=== PATIENT | female | born 1955 | race Caucasian/White ===

== ENCOUNTER 2018-08-20 18:26 | Observation (INO) | payer MEDICAID, OTHER ==
[2018-08-20 18:33] VITALS: BMI 25.7
--- NOTE | 2018-08-20 19:11 | ED PDOC ---
Arrival/HPI - General Chief Complaint: High Blood Pressure Time Seen by Provider: 08/20/18 18:41 Historian: Patient, Family - History of Present Illness Narrative History of Present Illness (Text): 08/20/18 19:06 Patient is a 63 year old female whose past medical history includes CABG, hypertension, and diabetes, who presents to the Emergency department for elevated blood pressure. Patient presents with family member who notes that patient's blood pressure has been elevated for awhile. Today, her family member called the PMD, who recommended she present to the Emergency department for evaluation. P Patient denies fevers, chills, cough, shortness of breath, chest pain, abdominal pain, nausea, vomiting, diarrhea, back pain, neck pain, headache, dizziness, or any other complaint. 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) - HEENT Hx HEENT Disorder: Yes (USING GLASSES) Hx Blind: Yes (legally blind) - Renal Hx Renal Disorder: (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) Hx Dialysis: Yes (4 TIMES ONLY AFTER CABG) - Endocrine/Metabolic Hx Endocrine Disorders: Yes Hx Diabetes Mellitus Type 1: Yes Hx Diabetes Mellitus Type 2: Yes - Musculoskeletal/Rheumatological Hx Falls: Yes - Psychiatric Hx Psychophysiologic Disorder: Yes Hx Depression: Yes Hx Substance Use: No - Surgical History Hx Cardiac Catheterization: Yes Hx Open Heart Surgery: Yes - Anesthesia Hx Anesthesia: Yes Hx Anesthesia Reactions: No Hx Malignant Hyperthermia: No - Suicidal Assessment Feels Threatened In Home Enviroment: No Family/Social History - Physician Review Nursing Documentation Reviewed: Yes Family/Social History: No Known Family HX Smoking Status: Never Smoked Hx Alcohol Use: No Hx Substance Use: No Hx Substance Use Treatment: No Allergies/Home Meds Allergies/Adverse Reactions: Allergies No Known Allergies Allergy (Verified 06/09/13 20:22) Home Medications: Home Meds Medication Instructions Recorded Confirmed Alogliptin Godwin/Metformin HCl 1 tab PO DAILY 08/20/18 08/20/18 [Alogliptin-Metformin 12.5-1000] Clopidogrel [Plavix] 1 tab PO DAILY 08/20/18 08/20/18 Ibuprofen [Motrin Tab] 1 tab PO PRN PRN 08/20/18 08/20/18 RX: Aspirin [Ecotrin] 1 tab PO DAILY 08/20/18 08/20/18 RX: Atorvastatin [Lipitor] 1 tab PO HS 08/20/18 08/20/18 RX: Lisinopril [Zestril] 1 tab PO DAILY 08/20/18 08/20/18 RX: Multivitamin [Multivitamins] 1 tab PO DAILY 08/20/18 08/20/18 Review of Systems - Physician Review All systems were reviewed & negative as marked: Yes - Review of Systems Constitutional: absent: Fevers, Night Sweats Respiratory: absent: SOB, Cough Cardiovascular: Other (pulsing sensation in lower extremities). absent: Chest Pain, VALDEZ Gastrointestinal: absent: Abdominal Pain, Diarrhea, Nausea, Vomiting Genitourinary Female: absent: Urine Output Changes Musculoskeletal: absent: Back Pain, Neck Pain Neurological: absent: Headache, Dizziness Physical Exam Vital Signs Reviewed: Yes Vital Signs Temp Pulse Resp BP Pulse Ox 08/20/18 18:39 192/80 H 08/20/18 18:37 98.6 F 74 18 219/87 H 98 Temperature: Afebrile Blood Pressure: Hypertensive Pulse: Regular Respiratory Rate: Normal Appearance: Positive for: Well-Appearing Mental Status: Positive for: Alert and Oriented X 3 - Systems Exam Head: Present: Atraumatic, Normocephalic Pupils: Present: PERRL Extroacular Muscles: Present: EOMI Conjunctiva: Present: Normal Mouth: Present: Moist Mucous Membranes Neck: Present: Normal Range of Motion Respiratory/Chest: Present: Clear to Auscultation, Good Air Exchange. No: Respiratory Distress, Accessory Muscle Use Cardiovascular: Present: Regular Rate and Rhythm, Normal S1, S2. No: Murmurs Abdomen: No: Tenderness, Distention, Peritoneal Signs Back: Present: Normal Inspection Upper Extremity: Present: Normal Inspection. No: Cyanosis, Edema Lower Extremity: Present: Normal Inspection. No: Edema Neurological: Present: GCS=15, CN II-XII Intact, Speech Normal Skin: Present: Warm, Dry, Normal Color. No: Rashes Psychiatric: Present: Alert, Oriented x 3, Normal Insight, Normal Concentration Medical Decision Making ED Course and Treatment: 08/20/18 19:06 Impression: Patient is a 63 year old female who presents to the Emergency department for elevated BP evaluation. Differential Diagnosis included but are not limited to: htn urgency vs emergency Plan: -- EKG -- Cardiac enzymes -- Labs -- Blood work -- Chest X-ray -- Urinalysis -- Reassess and disposition Prior Visits: Notes and results from previous visits were reviewed. Progress Notes: 08/20/18 19:07 EKG shows NSR at 71bpm with T wave inversions inferiorly in lead V2. Interpreted by me. 08/20/18 19:07 Discussed case and EKG with , who states patient not a code heart candidate. 08/20/18 20:28 08/20/18 20:31 ekg with marked changes from previous, ?wellens vs strain vs ischemia. unable to reach primary cardilogist kamala for previous ekg. accepted by dr cuellar for obs. - Lab Interpretations I have reviewed the lab results: Yes - RAD Interpretation Narrative RAD Interpretations (Text): 08/20/18 20:00 Chest X-ray shows no acute process. Interpreted by me. Radiology Orders: 08/20/18 19:02 CHEST PORTABLE [RAD] Stat Cafe Server: ED Physician - EKG Interpretation Interpreted by ED Physician: Yes Type: 12 lead EKG - Scribe Statement The provider has reviewed the documentation as recorded by the Scribe Reji Gordon Provider Scribe Attestation: All medical record entries made by the Scribe were at my direction and personally dictated by me. I have reviewed the chart and agree that the record accurately reflects my personal performance of the history, physical exam, medical decision making, and the department course for this patient. I have also personally directed, reviewed, and agree with the discharge instructions and disposition. Disposition/Present on Arrival - Present on Arrival Any Indicators Present on Arrival: No History of DVT/PE: No History of Uncontrolled Diabetes: No Urinary Catheter: No History of Decub. Ulcer: No History Surgical Site Infection Following: CABG - Mediastinitis, None - Disposition Have Diagnosis and Disposition been Completed?: Yes Diagnosis: Abnormal EKG, HTN (hypertension) Disposition: HOSPITALIZED Disposition Time: 05:00 Condition: STABLE
[2018-08-20 19:48] LABS: BASO # 0.02 K/mm3 (0.0-2.0); BASO % 0.3 % (0.0-3.0); EOS # 0.1 (0.0-0.7); EOS % 1.5 % (1.5-5.0); GRAN # 3.56 (1.4-6.5); HEMOGLOBIN 10.7 g/dL (12.0-16.0); LYMPH # 2.7 (1.2-3.4); LYMPH % 38.9 % (22.0-35.0); MEAN CELL VOLUME 86.7 fl (80.0-105.0); MEAN CORPUSCULAR HEMOGLOBIN 28.4 pg (25.0-35.0); MEAN CORPUSCULAR HGB CONC 32.7 g/dl (31.0-37.0); MONO # 0.5 (0.1-0.6); MONO % 7.3 % (1.0-6.0); RBC 3.77 10^6/uL (3.5-6.1); RED CELL DISTRIBUTION WIDTH 13.1 % (11.5-14.5); WHITE BLOOD COUNT 6.8 10^3/ul (4.5-11.0)
[2018-08-20 19:55] LABS: PH,URINE 6.5 (4.7-8.0); URINE BILIRUBIN NEGATIVE (NEGATIVE); URINE BLOOD NEGATIVE (NEGATIVE); URINE GLUCOSE (UA) 100 mg/dL (NEGATIVE); URINE LEUKOCYTE ESTERASE TRACE Leu/uL (NEGATIVE); URINE PROTEIN 100 mg/dL (<30 mg/dL); URINE UROBILINOGEN 0.2 E.U./dL (<1 E.U./dL)
[2018-08-20 19:56] LABS: INR 1.02; PARTIAL THROMBOPLASTIN TIME 27.5 Seconds (25.1-36.5); PROTHROMBIN TIME 11.6 SECONDS (9.4-12.5)
[2018-08-20 19:58] LABS: URINE APPEARANCE TURBID (CLEAR); URINE COLOR YELLOW (YELLOW)
[2018-08-20 19:59] LABS: URINE RBC NEGATIVE /hpf (0-2)
[2018-08-20 20:05] LABS: ALB/GLOB RATIO 1.1 (1.1-1.8); ALBUMIN 3.7 g/dL (3.0-4.8); CALCIUM 8.9 mg/dL (8.4-10.5)
[2018-08-20 20:08] LABS: TROPONIN I 0.01 ng/mL
--- NOTE | 2018-08-20 23:04 | CP.PCM.HP ---
<Fazal Murphy - Last Filed: 08/21/18 01:26> History of Present Illness - History of Present Illness History of Present Illness: Fazal Murphy PGY1, History and Physical for Carlos Fernandez Pt is a 63yo female with a PMH of CABG, HTN, DM who presents to the ED for elevated blood pressure. Pt states she was at her home when she took her blood pressure which was in the 200's/100's. She states her BP is typically high, and that she also takes her medications regularly. Pt states she had no symptoms before taking her blood pressure, or while at her primary care physician. Pt denies chest pain, weakness, slurred speech, SOB, or palpitations. She has chronic visual changes from her diabetes. Pt takes lisinopril at home. A 12 point ROS was obtained and added to the HPI where appropriate. PMH: HTN, DM, HLD PSH: CABG 2013 FH: Mother 70, DM. Father 80, DM, HTN. 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: Present on Admission - Present on Admission Any Indicators Present on Admission: Yes History of Uncontrolled Diabetes: Yes Review of Systems - Review of Systems Review of Systems: a 12 point ROS was obtained and added to the HPI where appropriate Past Patient History - Infectious Disease Hx of Infectious Diseases: None - Tetanus Immunizations Tetanus Immunization: Unknown - Past Social History Smoking Status: Never Smoked - CARDIAC Hx Cardiac Disorders: Yes Hx Hypertension: Yes Hx Peripheral Edema: Yes (RT PEDAL EDEMA) Other/Comment: open heart surgery - PULMONARY Hx Asthma: Yes - NEUROLOGICAL 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) - HEENT Hx HEENT Problems: Yes (USING GLASSES) Hx Blind: Yes (legally blind) - RENAL Hx Chronic Kidney Disease: (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) Hx Dialysis: Yes (4 TIMES ONLY AFTER CABG) - ENDOCRINE/METABOLIC Hx Endocrine Disorders: Yes Hx Diabetes Mellitus Type 1: Yes Hx Diabetes Mellitus Type 2: Yes - MUSCULOSKELETAL/RHEUMATOLOGICAL Hx Falls: Yes - PSYCHIATRIC Hx Psychophysiologic Disorder: Yes Hx Depression: Yes Hx Substance Use: No - SURGICAL HISTORY Hx Cardiac Catheterization: Yes Hx Open Heart Surgery: Yes - ANESTHESIA Hx Anesthesia: Yes Hx Anesthesia Reactions: No Hx Malignant Hyperthermia: No Meds Allergies/Adverse Reactions: Allergies Allergy/AdvReac Type Severity Reaction Status Date / Time No Known Allergies Allergy Verified 06/09/13 20:22 Physical Exam - Constitutional Appears: No Acute Distress - Head Exam Head Exam: ATRAUMATIC, NORMOCEPHALIC - Eye Exam Eye Exam: EOMI - ENT Exam ENT Exam: Mucous Membranes Moist - Respiratory Exam Respiratory Exam: Clear to Auscultation Bilateral, NORMAL BREATHING PATTERN. absent: Accessory Muscle Use - Cardiovascular Exam Cardiovascular Exam: RRR, +S1, +S2 - GI/Abdominal Exam GI & Abdominal Exam: Normal Bowel Sounds, Soft. absent: Tenderness - Extremities Exam Extremities exam: Positive for: pedal pulses present. Negative for: calf tenderness, pedal edema - Neurological Exam Neurological exam: Alert, CN II-XII Intact, Oriented x3 - Psychiatric Exam Psychiatric exam: Normal Affect, Normal Mood - Skin Skin Exam: Dry, Normal Color, Warm Results - Vital Signs Recent Vital Signs: Last Vital Signs Temp 98.6 F 08/20/18 18:37 Pulse 74 08/20/18 18:37 Resp 18 08/20/18 18:37 BP 167/93 H 08/20/18 19:44 Pulse Ox 98 08/20/18 18:37 - Labs Result Diagrams: 08/20/18 19:41 08/20/18 19:41 Labs: Laboratory Results - last 24 hr 08/20/18 08/20/18 08/20/18 19:41 19:41 19:41 WBC 6.8 RBC 3.77 Hgb 10.7 L Hct 32.7 L MCV 86.7 MCH 28.4 MCHC 32.7 RDW 13.1 Plt Count 265 MPV 11.0 Gran % 52.0 Lymph % (Auto) 38.9 H Fisher % (Auto) 7.3 H Eos % (Auto) 1.5 Baso % (Auto) 0.3 Gran # 3.56 Lymph # (Auto) 2.7 Fisher # (Auto) 0.5 Eos # (Auto) 0.1 Baso # (Auto) 0.02 PT 11.6 INR 1.02 APTT 27.5 Sodium 135 Potassium 4.7 Chloride 100 Carbon Dioxide 26 Anion Gap 15 BUN 28 H Creatinine 1.6 H Est GFR ( Amer) 39 Est GFR (Non-Af Amer) 32 Random Glucose 311 H* Calcium 8.9 Magnesium 1.7 Total Bilirubin 0.2 AST 26 ALT 20 Alkaline Phosphatase 144 H Lactate Dehydrogenase 398 Total Creatine Kinase 67 Troponin I 0.01 Total Protein 7.0 Albumin 3.7 Globulin 3.3 Albumin/Globulin Ratio 1.1 Urine Color Urine Appearance Urine pH Ur Specific Archbold Urine Protein Urine Glucose (UA) Urine Ketones Urine Blood Urine Nitrate Urine Bilirubin Urine Urobilinogen Ur Leukocyte Esterase Urine RBC Urine WBC 08/20/18 19:45 WBC RBC Hgb Hct MCV MCH MCHC RDW Plt Count MPV Gran % Lymph % (Auto) Fisher % (Auto) Eos % (Auto) Baso % (Auto) Gran # Lymph # (Auto) Fisher # (Auto) Eos # (Auto) Baso # (Auto) PT INR APTT Sodium Potassium Chloride Carbon Dioxide Anion Gap BUN Creatinine Est GFR ( Amer) Est GFR (Non-Af Amer) Random Glucose Calcium Magnesium Total Bilirubin AST ALT Alkaline Phosphatase Lactate Dehydrogenase Total Creatine Kinase Troponin I Total Protein Albumin Globulin Albumin/Globulin Ratio Urine Color Yellow Urine Appearance Turbid Urine pH 6.5 Ur Specific Archbold 1.015 Urine Protein 100 H Urine Glucose (UA) 100 H Urine Ketones Negative Urine Blood Negative Urine Nitrate Negative Urine Bilirubin Negative Urine Urobilinogen 0.2 Ur Leukocyte Esterase Trace H Urine RBC Negative Urine WBC 1 - 3 Assessment & Plan - Assessment and Plan (Free Text) Assessment: Pt is a 63yo female with a PMH of CABG, HTN, DM who presents to the ED for elevated blood pressure. Plan: Hypertensive urgency - pressure 219/87 on arrival, which has improved to 154/85 - TSH 2.93 - troponin negative x1, continue to trend Q6 - ASA 325 given in ED, continue with ASA 81mg - started hydralazine 10mg PRN for SBP over 180 - continue home lisinopril 30mg - discussed the importance of medication compliance - INR 1.02 - cardio consulted, Dr Moreno - EKG shows NSR at 71bpm with T wave inversions inferiorly in lead V2. - continue plavix DM - HA1C - ISS- med - continue accuchecks - random glucose 311 HLD - continue home atorvastatin - follow up lipid panel Anemia - Hgb 10.7 - continue to monitor UA - Protein 100, Glucose 100, LE trace - follow up urine culture Ppx - SCD - pantoprazole Pt seen, examined, assessment and plan discussed with Dr Carlos Murphy PGY1 - Date & Time Date: 08/21/18 Time: 00:51 <Sunita Gonzalez N - Last Filed: 08/21/18 06:25> Results - Vital Signs Recent Vital Signs: Last Vital Signs Temp 97.6 F 08/21/18 06:00 Pulse 70 08/21/18 06:00 Resp 20 08/21/18 06:00 BP 150/66 08/21/18 06:00 Pulse Ox 100 08/21/18 00:01 - Labs Result Diagrams: 08/20/18 19:41 08/20/18 19:41 Labs: Laboratory Results - last 24 hr 08/20/18 08/20/18 08/20/18 19:41 19:41 19:41 WBC 6.8 RBC 3.77 Hgb 10.7 L Hct 32.7 L MCV 86.7 MCH 28.4 MCHC 32.7 RDW 13.1 Plt Count 265 MPV 11.0 Gran % 52.0 Lymph % (Auto) 38.9 H Fisher % (Auto) 7.3 H Eos % (Auto) 1.5 Baso % (Auto) 0.3 Gran # 3.56 Lymph # (Auto) 2.7 Fisher # (Auto) 0.5 Eos # (Auto) 0.1 Baso # (Auto) 0.02 PT 11.6 INR 1.02 APTT 27.5 Sodium 135 Potassium 4.7 Chloride 100 Carbon Dioxide 26 Anion Gap 15 BUN 28 H Creatinine 1.6 H Est GFR ( Amer) 39 Est GFR (Non-Af Amer) 32 Random Glucose 311 H* Calcium 8.9 Magnesium 1.7 Total Bilirubin 0.2 AST 26 ALT 20 Alkaline Phosphatase 144 H Lactate Dehydrogenase 398 Total Creatine Kinase 67 Troponin I 0.01 Total Protein 7.0 Albumin 3.7 Globulin 3.3 Albumin/Globulin Ratio 1.1 TSH 3rd Generation Urine Color Urine Appearance Urine pH Ur Specific Archbold Urine Protein Urine Glucose (UA) Urine Ketones Urine Blood Urine Nitrate Urine Bilirubin Urine Urobilinogen Ur Leukocyte Esterase Urine RBC Urine WBC 08/20/18 08/20/18 19:41 19:45 WBC RBC Hgb Hct MCV MCH MCHC RDW Plt Count MPV Gran % Lymph % (Auto) Fisher % (Auto) Eos % (Auto) Baso % (Auto) Gran # Lymph # (Auto) Fisher # (Auto) Eos # (Auto) Baso # (Auto) PT INR APTT Sodium Potassium Chloride Carbon Dioxide Anion Gap BUN Creatinine Est GFR ( Amer) Est GFR (Non-Af Amer) Random Glucose Calcium Magnesium Total Bilirubin AST ALT Alkaline Phosphatase Lactate Dehydrogenase Total Creatine Kinase Troponin I Total Protein Albumin Globulin Albumin/Globulin Ratio TSH 3rd Generation 2.93 Urine Color Yellow Urine Appearance Turbid Urine pH 6.5 Ur Specific Archbold 1.015 Urine Protein 100 H Urine Glucose (UA) 100 H Urine Ketones Negative Urine Blood Negative Urine Nitrate Negative Urine Bilirubin Negative Urine Urobilinogen 0.2 Ur Leukocyte Esterase Trace H Urine RBC Negative Urine WBC 1 - 3 Addendum Addendum: 08/21/18 06:23 pt with hypertensive emergency and multiple co morbidities had abnormal ekg compared to 2013.
[2018-08-21] MEDS ORDERED: guaiFENesin 100 mg/5 ml Syrup UD PO PRN (01:16)
[2018-08-21] MEDS ORDERED: Benzocaine/Menthol (Cepacol) Lozenge MT PRN (01:24)
[2018-08-21] MEDS ORDERED: guaiFENesin 600 mg ER Tab PO ONE ×2 (01:30→14:44)
[2018-08-21 06:58] LABS: TROPONIN I 0.02 ng/mL
[2018-08-21 07:30] LABS: BASO # 0.02 K/mm3 (0.0-2.0); BASO % 0.3 % (0.0-3.0); EOS # 0.2 (0.0-0.7); EOS % 2.4 % (1.5-5.0); GRAN # 2.61 (1.4-6.5); GRAN % 39.6 % (50.0-68.0); HEMOGLOBIN 10.6 g/dL (12.0-16.0); LYMPH # 3.2 (1.2-3.4); LYMPH % 48.6 % (22.0-35.0); MEAN CELL VOLUME 86.7 fl (80.0-105.0); MEAN CORPUSCULAR HEMOGLOBIN 28.2 pg (25.0-35.0); MEAN CORPUSCULAR HGB CONC 32.5 g/dl (31.0-37.0); MEAN PLATELET VOLUME 11.2 fl (7.0-11.0); MONO # 0.6 (0.1-0.6); MONO % 9.1 % (1.0-6.0); RBC 3.76 10^6/uL (3.5-6.1); RED CELL DISTRIBUTION WIDTH 13.4 % (11.5-14.5); WHITE BLOOD COUNT 6.6 10^3/ul (4.5-11.0)
[2018-08-21 07:40] LABS: ALB/GLOB RATIO 1.1 (1.1-1.8); ALBUMIN 3.4 g/dL (3.0-4.8); CALCIUM 9.2 mg/dL (8.4-10.5)
[2018-08-21] MEDS: Insulin Reg-MEDIUM-Coverage SC SCH ×4 (08:34→23:04)
--- NOTE | 2018-08-21 09:58 | RAD ---
Date of service: 08/20/2018 HISTORY: Hypertension COMPARISON: No prior. FINDINGS: LUNGS: The lungs are well inflated and clear. PLEURA: No significant pleural effusion identified, no pneumothorax apparent. CARDIOVASCULAR: There is mild cardiomegaly. Status post CABG. OSSEOUS STRUCTURES: No significant abnormalities. VISUALIZED UPPER ABDOMEN: Normal. OTHER FINDINGS: None. IMPRESSION: No active pulmonary disease.
--- NOTE | 2018-08-21 10:18 | CARD ---
APPROVED REPORT Date of service: 08/21/2018 EKG Measurement Heart [id number] <Conclusion> Normal sinus rhythm with 1st degree AV block NSTT wave abnormality prolonged QT Abnormal ECG
--- NOTE | 2018-08-21 10:50 | CT ---
Date of service: 08/21/2018 PROCEDURE: CT HEAD WITHOUT CONTRAST. HISTORY: headache; elevated BP on admission COMPARISON: None available. TECHNIQUE: Axial computed tomography images were obtained through the head/brain without intravenous contrast. Radiation dose: Total exam DLP = 736 mGy-cm. This CT exam was performed using one or more of the following dose reduction techniques: Automated exposure control, adjustment of the mA and/or kV according to patient size, and/or use of iterative reconstruction technique. FINDINGS: HEMORRHAGE: No intracranial hemorrhage. BRAIN: No mass effect or edema. There is a 4 mm area of slightly increased density in the right parietal white matter. This could represent an area of hemosiderin deposition from an old hemorrhage or possibly a cavernous angioma. It is unlikely that this represents acute hemorrhage. MRI follow-up may be indicated VENTRICLES: Unremarkable. No hydrocephalus. CALVARIUM: Unremarkable. PARANASAL SINUSES: Unremarkable as visualized. No significant inflammatory changes. MASTOID AIR CELLS: Unremarkable as visualized. No inflammatory changes. OTHER FINDINGS: None. IMPRESSION: There is a 4 mm area of slightly increased density in the right parietal white matter. This could represent an area of hemosiderin deposition from an old hemorrhage or possibly a cavernous angioma. It is unlikely that this represents acute hemorrhage. MRI follow-up may be indicated
--- NOTE | 2018-08-21 11:08 | CP.PCM.PN ---
<Forest Hull - Last Filed: 08/21/18 17:57> Subjective - Date & Time of Evaluation Date of Evaluation: 08/21/18 Time of Evaluation: 07:10 - Subjective Subjective: Forest Hull DO PGY-1, Internal Medicine Resident. Hospitalist Progress Note Patient seen and examined at bedside. Patient is resting in bed, awake and oriented. She admits to headache as she is NPO. Patient denied chest pain, palpitation, fever, chills, cough, N/V/D Objective - Vital Signs/Intake and Output Vital Signs (last 24 hours): Temp Pulse Resp BP Pulse Ox 97.6 F 104 H 20 187/91 H 100 08/21/18 06:00 08/21/18 10:01 08/21/18 06:00 08/21/18 10:01 08/21/18 00:01 - Medications Medications: Current Medications Aspirin (Ecotrin) 81 mg PO DAILY [facility] Last Admin: 08/21/18 10:04 Dose: 81 mg Atorvastatin Calcium (Lipitor) 40 mg PO [facility] Benzocaine/Menthol (Cepacol Sore Throat) 1 nathaniel MT Q2H PRN PRN Reason: Sore Throat Clopidogrel Bisulfate (Plavix) 75 mg PO DAILY [facility] Last Admin: 08/21/18 10:04 Dose: 75 mg Hydralazine HCl (Apresoline) 10 mg IVP Q6 PRN PRN Reason: Systolic Blood Pressure Insulin Human Regular (Humulin R Med) 0 units SC [facility]; Protocol Last Admin: 08/21/18 08:34 Dose: Not Given Lisinopril (Zestril) 30 mg PO DAILY [facility] Last Admin: 08/21/18 10:01 Dose: 30 mg Pantoprazole Sodium (Protonix Inj) 40 mg IVP DAILY [facility] Last Admin: 08/21/18 10:01 Dose: 40 mg - Labs Labs: 08/21/18 06:00 08/21/18 06:00 PT 11.6 SECONDS (9.4-12.5) 08/20/18 19:41 INR 1.02 08/20/18 19:41 APTT 27.5 Seconds (25.1-36.5) 08/20/18 19:41 - Constitutional Appears: Well, No Acute Distress - Head Exam Head Exam: ATRAUMATIC, NORMOCEPHALIC - Eye Exam Eye Exam: EOMI Additional comments: limited sight - ENT Exam ENT Exam: Mucous Membranes Moist, Normal Exam - Neck Exam Neck Exam: Full ROM, Normal Inspection - Respiratory Exam Respiratory Exam: Clear to Ausculation Bilateral, NORMAL BREATHING PATTERN Additional comments: median sternotomy - Cardiovascular Exam Cardiovascular Exam: REGULAR RHYTHM, +S1, +S2. absent: Gallop, Murmur - GI/Abdominal Exam GI & Abdominal Exam: Soft, Normal Bowel Sounds. absent: Tenderness - Extremities Exam Extremities Exam: Full ROM, Normal Capillary Refill, Normal Inspection. absent: Joint Swelling, Pedal Edema - Back Exam Back Exam: NORMAL INSPECTION - Neurological Exam Neurological Exam: Alert, Awake, CN II-XII Intact, Oriented x3 - Psychiatric Exam Psychiatric exam: Normal Affect, Normal Mood - Skin Skin Exam: Dry, Intact, Normal Color, Warm Assessment and Plan - Assessment and Plan (Free Text) Assessment: 63 y/o female with a PMH of CABG, HTN, DM who presented to the ED for elevated blood pressure 219/87. EKG shows NSR at 71bpm with T wave inversions inferiorly in lead V2. Patient with extensive cardiac history admitted to telemetry for hypertensive emergency and to r/o ACS Plan: Hypertensive emergency - pressure 219/87 on arrival, which has improved to 154/85 - EKG shows NSR at 71bpm with T wave inversions inferiorly in lead V2. - troponin negative x3 - CXR: shows no acute process - ASA 325 given in ED - CT head: 4 mm right parietal white matter density could represent old infarction or cavernous angioma - Brain MRI ordered - continue clonidine 0.1 mg BID - hydralazine 10mg PRN for SBP over 180 - continue home lisinopril 30mg - tylenol for headache H/O CAD s/p CABG: - continue with ASA 81 and plavix - Per cardio consult note , Dr Moreno: patient has accelerated HTN. 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 chest pain worked up. clonidine added to regimen. No evidence of ACS DM - accuchecks - HA1C - d/c home med alogliptin/metformin 12.5-1000 - ISS- med - Urine Protein 100, Glucose 100 H/O left LL DVT: - INR 1.02 - no symptoms of calf tenderness or SOB HLD - continue home atorvastatin - lipid panel CHOL 159, TG 139, LDL 43, HDL 46 - TSH 2.93 Anemia - H/H 10.7/32.7 - continue to monitor Prpphylaxis - DVT ppx: SCD - GI ppx: pantoprazole Heart healthy diet Case reviewed and plan discussed with attending Dr Del Castillo <Abe Del Castillo - Last Filed: 08/23/18 14:50> Objective - Vital Signs/Intake and Output Vital Signs (last 24 hours): Temp Pulse Resp BP Pulse Ox 97.3 F L 64 18 140/58 L 98 08/22/18 12:00 08/22/18 12:00 08/22/18 12:00 08/22/18 12:00 08/22/18 06:00 - Labs Labs: 08/22/18 06:00 08/22/18 06:00 PT 11.6 SECONDS (9.4-12.5) 08/20/18 19:41 INR 1.02 08/20/18 19:41 APTT 27.5 Seconds (25.1-36.5) 08/20/18 19:41 Attending/Attestation - Attestation I have personally seen and examined this patient.: Yes I have fully participated in the care of the patient.: Yes I have reviewed all pertinent clinical information, including history, physical exam and plan: Yes Notes (Text): 08/23/18 14:46 attending note; Patient seen and examined with resident. Patient is complaining of mild headache. Denies any nausea, vomiting. Denies any neck pain. Chest pain is resolving. Tolerating diet well. Patient usually ambulates with a cane/walker at home. Patient is a 63 year old female with a PMH of CABG, HTN, DM who presented to the ED for elevated blood pressure 219/87. EKG shows NSR at 71bpm with T wave inversions inferiorly in lead V2. Patient with extensive cardiac history admitted to telemetry for hypertensive emergency and to r/o ACS. patient is noncompliance with medication. Started on lisinopril. IV hydralazine ordered. Cardiac enzymes negative. Cardiology evaluation requested. Patient follows up with top lift and automatic window repairer . Headache; CT head showed possible old hemorrhage. MRI ordered. PT evaluation requested. Upon discharge patient will follow up with PMD Dr. Mccray.
--- NOTE | 2018-08-21 14:42 | CON ---
DATE: 08/21/2018 CARDIOLOGY CONSULTATION HISTORY: The patient is a 63-year-old woman, who presents with accelerated hypertension. The patient's past medical history is notable for hypertension as well as history of coronary artery bypass surgery in the past. She also suffers from hyperlipidemia. She is followed by a skein yarn dyer helper at [facility] (Formerly [facility]). The patient admits to constant chest discomfort, in which she has reported to a skein yarn dyer helper and has been worked up apparently. She denies shortness of breath. SOCIAL HISTORY: The patient does not smoke. REVIEW OF SYSTEMS: Fourteen-point review of systems is reviewed in detail. No diabetes mellitus noted. She does complain of visual disturbances and headaches. PHYSICAL EXAMINATION: VITAL SIGNS: Blood pressure is 187/91, heart rate is in the 90s. NECK: Negative JVD. LUNGS: Without rales. HEART: Reveals S1, S2. EXTREMITIES: Without edema. The EKG shows normal sinus rhythm with diffuse ST-T changes. LABORATORY DATA: Laboratories reveals troponins that are negative x2. BUN and creatinine are 26 and 1.6. The hemoglobin is 10.6. IMPRESSION: 1. Accelerated hypertension. 2. History of coronary artery bypass surgery. 3. No evidence for acute coronary syndrome. 4. Coronary artery disease. 5. Hyperlipidemia. 6. Headaches. PLAN: Given these findings, the patient's cardiac workup has been followed by a skein yarn dyer helper in [place] and the chest pain that she reported to him and worked up apparently. We will add clonidine to her regimen. Neel Moreno MD
--- NOTE | 2018-08-21 15:25 | CARD ---
APPROVED REPORT Date of service: 08/21/2018 EKG Measurement Heart [id number] <Conclusion> Normal sinus rhythm Nonspecific ST changes in inferior leads T wave inversions consider doc-lateral wall ischemia. Abnormal ECG
--- NOTE | 2018-08-21 16:09 | CARD ---
APPROVED REPORT Date of service: 08/20/2018 EKG Measurement Heart [id number] <Conclusion> Normal sinus rhythm Marked ST abnormality, possible inferior subendocardial injury Abnormal ECG
--- NOTE | 2018-08-21 17:00 | MRI ---
Date of service: 08/21/2018 PROCEDURE: MRI BRAIN WITHOUT CONTRAST HISTORY: abnormal CT; ?Hemangioma vs. old infarct COMPARISON: CT 08/21/2018 TECHNIQUE: Multiplanar, multisequence MR images of the brain were obtained without intravenous contrast enhancement. FINDINGS: HEMORRHAGE: There is a small focus of hemosiderin deposition in the right parietal white matter the corresponds to the CT finding. This measures 5 mm in diameter. This is best seen on gradient echo image 14 series 7. This is consistent with an old hemorrhage. A similar finding is also seen in the right cerebellar hemisphere image 5 series 7. DWI: No evidence of an acute or early subacute infarction. BRAIN PARENCHYMA: No mass effect or edema. No atrophy or chronic microvascular ischemic changes. VENTRICLES: Unremarkable. No hydrocephalus. CRANIUM: Unremarkable. ORBITS: Grossly unremarkable. PARANASAL SINUSES/MASTOIDS: Clear VASCULAR SYSTEM: Skull base flow voids intact. OTHER FINDINGS: None. IMPRESSION: No acute intracranial findings. Small areas of hemosiderin deposition in the right parietal white matter and right cerebellar hemisphere consistent with chronic hemorrhages
[2018-08-22 04:18] VITALS: O2SAT 98
[2018-08-22 06:33] LABS: BASO # 0.02 K/mm3 (0.0-2.0); BASO % 0.3 % (0.0-3.0); EOS # 0.2 (0.0-0.7); EOS % 2.5 % (1.5-5.0); GRAN # 2.93 (1.4-6.5); GRAN % 43.1 % (50.0-68.0); HEMOGLOBIN 10.3 g/dL (12.0-16.0); LYMPH % 44.5 % (22.0-35.0); MEAN CELL VOLUME 87.9 fl (80.0-105.0); MEAN CORPUSCULAR HEMOGLOBIN 28.4 pg (25.0-35.0); MEAN CORPUSCULAR HGB CONC 32.3 g/dl (31.0-37.0); MEAN PLATELET VOLUME 11.5 fl (7.0-11.0); MONO # 0.7 (0.1-0.6); MONO % 9.6 % (1.0-6.0); RBC 3.63 10^6/uL (3.5-6.1); RED CELL DISTRIBUTION WIDTH 13.2 % (11.5-14.5); WHITE BLOOD COUNT 6.8 10^3/ul (4.5-11.0)
[2018-08-22] MEDS ORDERED: guaiFENesin 600 mg ER Tab PO STA (06:44)
[2018-08-22] MEDS ORDERED: Pantoprazole 40 mg EC Tab PO SCH (07:30)
[2018-08-22 07:40] LABS: ALB/GLOB RATIO 1.1 (1.1-1.8); ALBUMIN 3.5 g/dL (3.0-4.8); CALCIUM 8.7 mg/dL (8.4-10.5)
[2018-08-22] MEDS: Insulin Reg-MEDIUM-Coverage SC SCH ×4 (07:48→17:27)
--- NOTE | 2018-08-22 10:42 | CP.PCM.CON ---
<Kristine Sahuja - Last Filed: 08/22/18 16:05> History of Present Illness - History of Present Illness History of Present Illness: Lilibeth Sahu, PGY2, Neurology Consult Note for Dr Sanders: Reason for consult: chronic brain hemorrhage, on ASA and plavix 63 year old female with PMH CABG (2013), HTN, DM, presents to ED for elevated blood pressure. Patient reports that her BP was in 200s/100s at home, prompting her to come to ED. Patient reports a long history of high BP. States that she also had a mild headache. Denies chest pain, nausea, vomiting, diaphoresis, blurred vision, abdominal pain, urinary symptoms. At home, patient takes lisinopril (reports taking BP med). In hospital, patient's BP was high 219/87, head CT done showed 4 mm area of possible old hemorrhage, brain MRI also conf irmed old hemorrhage in right parietal white matter and right cerebellar hemisphere. Neurology consulted as patient is on aspirin and plavix in setting of old brain hemorrhage. 12 point ROS obtained and negative, except as per HPI. PMH: HTN, DM, HLD PSH: CABG 2013 FH: Mother 70, DM. Father 80, DM, HTN. 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) - HEENT Hx HEENT Problems: Yes (USING GLASSES) Hx Blind: Yes (legally blind) - RENAL Hx Chronic Kidney Disease: (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) Hx Dialysis: Yes (4 TIMES ONLY AFTER CABG) - ENDOCRINE/METABOLIC Hx Endocrine Disorders: Yes Hx Diabetes Mellitus Type 1: Yes Hx Diabetes Mellitus Type 2: Yes - MUSCULOSKELETAL/RHEUMATOLOGICAL Hx Falls: Yes - PSYCHIATRIC Hx Psychophysiologic Disorder: Yes Hx Depression: Yes Hx Substance Use: No - SURGICAL HISTORY Hx Cardiac Catheterization: Yes Hx Open Heart Surgery: Yes - ANESTHESIA Hx Anesthesia: Yes Hx Anesthesia Reactions: No Hx Malignant Hyperthermia: No Meds Home Medications: Home Medication List Medication Instructions Recorded Confirmed Type Carvedilol [Coreg] 3.125 mg PO BID #28 tab 08/22/18 Rx Lisinopril [Zestril] 1 tab PO DAILY #14 tablet 08/22/18 Rx Allergies/Adverse Reactions: Allergies Allergy/AdvReac Type Severity Reaction Status Date / Time No Known Allergies Allergy Verified 06/09/13 20:22 - Medications Medications: Current Medications Acetaminophen (Tylenol 325mg Tab) 650 mg PO Q6H PRN PRN Reason: Pain, moderate (4-7) Aspirin (Ecotrin) 81 mg PO DAILY [facility] Last Admin: 08/22/18 09:08 Dose: 81 mg Atorvastatin Calcium (Lipitor) 40 mg PO HS [facility] Last Admin: 08/21/18 21:37 Dose: 40 mg Benzocaine/Menthol (Cepacol Sore Throat) 1 nathaniel MT Q2H PRN PRN Reason: Sore Throat Clonidine HCl (Catapres) 0.1 mg PO BID [facility] Last Admin: 08/22/18 09:08 Dose: 0.1 mg Clopidogrel Bisulfate (Plavix) 75 mg PO DAILY [facility] Last Admin: 08/22/18 09:07 Dose: 75 mg Hydralazine HCl (Apresoline) 10 mg IVP Q6 PRN PRN Reason: Systolic Blood Pressure Insulin Human Regular (Humulin R Med) 0 units SC [facility]; Protocol Last Admin: 08/22/18 09:21 Dose: 3 unit Lisinopril (Zestril) 30 mg PO DAILY [facility] Last Admin: 08/22/18 09:07 Dose: 30 mg Pantoprazole Sodium (Protonix Ec Tab) 40 mg PO ACB [facility] Last Admin: 08/22/18 09:21 Dose: 40 mg Physical Exam - Constitutional Appears: Non-toxic, No Acute Distress - Head Exam Head Exam: ATRAUMATIC, NORMOCEPHALIC - Eye Exam Eye Exam: EOMI, PERRL. absent: Conjunctival injection, Nystagmus, Scleral icte adrianna Pupil Exam: NORMAL ACCOMODATION, PERRL. absent: Fixed, Irregular, Miosis, Unequal - ENT Exam ENT Exam: Mucous Membranes Moist - Neck Exam Neck exam: Positive for: Full Rom - Respiratory Exam Respiratory Exam: Clear to Auscultation Bilateral, NORMAL BREATHING PATTERN. absent: Accessory Muscle Use, Rhonchi, Wheezes - Cardiovascular Exam Cardiovascular Exam: RRR, +S1, +S2. absent: Systolic Murmur - GI/Abdominal Exam GI & Abdominal Exam: Normal Bowel Sounds, Soft. absent: Guarding, Rigid, Tenderness - Extremities Exam Extremities exam: Positive for: normal inspection. Negative for: calf tenderness, pedal edema - Back Exam Back exam: NORMAL INSPECTION - Neurological Exam Neurological exam: Alert, CN II-XII Intact, Oriented x3, Reflexes Normal Additional comments: Motor Strength 5/5 BUE and BLE Sensation intact throughout - Psychiatric Exam Psychiatric exam: Normal Affect - Skin Skin Exam: Dry, Normal Color, Warm Results - Vital Signs Recent Vital Signs: Last Vital Signs Temp 98.2 F 08/22/18 06:00 Pulse 94 H 08/22/18 09:08 Resp 20 08/22/18 06:00 BP 157/60 H 08/22/18 09:08 Pulse Ox 98 08/22/18 06:00 - Labs Result Diagrams: 08/22/18 06:00 08/22/18 06:00 Labs: Laboratory Results - last 24 hr 08/20/18 08/21/18 08/21/18 19:41 07:16 11:43 WBC RBC Hgb Hct MCV MCH MCHC RDW Plt Count MPV Gran % Lymph % (Auto) [place] % (Auto) Eos % (Auto) Baso % (Auto) Gran # Lymph # (Auto) [place] # (Auto) Eos # (Auto) Baso # (Auto) Plt P2Y12 React Units Sodium Potassium Chloride Carbon Dioxide Anion Gap BUN Creatinine Est GFR ( Amer) Est GFR (Non-Af Amer) POC Glucose (mg/dL) 81 113 H Random Glucose Hemoglobin A1c 8.6 H Calcium Total Bilirubin AST ALT Alkaline Phosphatase Troponin I Total Protein Albumin Globulin Albumin/Globulin Ratio 08/21/18 08/21/18 08/21/18 12:10 17:20 21:05 WBC RBC Hgb Hct MCV MCH MCHC RDW Plt Count MPV Gran % Lymph % (Auto) [place] % (Auto) Eos % (Auto) Baso % (Auto) Gran # Lymph # (Auto) [place] # (Auto) Eos # (Auto) Baso # (Auto) Plt P2Y12 React Units Sodium Potassium Chloride Carbon Dioxide Anion Gap BUN Creatinine Est GFR ( Amer) Est GFR (Non-Af Amer) POC Glucose (mg/dL) 179 H 178 H Random Glucose Hemoglobin A1c Calcium Total Bilirubin AST ALT Alkaline Phosphatase Troponin I 0.01 D Total Protein Albumin Globulin Albumin/Globulin Ratio 08/22/18 08/22/18 08/22/18 06:00 06:00 07:16 WBC 6.8 RBC 3.63 Hgb 10.3 L Hct 31.9 L MCV 87.9 MCH 28.4 MCHC 32.3 RDW 13.2 Plt Count 278 MPV 11.5 H Gran % 43.1 L Lymph % (Auto) 44.5 H [place] % (Auto) 9.6 H Eos % (Auto) 2.5 Baso % (Auto) 0.3 Gran # 2.93 Lymph # (Auto) 3.0 [place] # (Auto) 0.7 H Eos # (Auto) 0.2 Baso # (Auto) 0.02 Plt P2Y12 React Units Sodium 134 Potassium 4.9 Chloride 101 Carbon Dioxide 26 Anion Gap 12 BUN 30 H Creatinine 1.9 H Est GFR ( Amer) 32 Est GFR (Non-Af Amer) 27 POC Glucose (mg/dL) 208 H Random Glucose 220 H Hemoglobin A1c Calcium 8.7 Total Bilirubin 0.3 AST 25 ALT 20 Alkaline Phosphatase 147 H Troponin I Total Protein 6.8 Albumin 3.5 Globulin 3.3 Albumin/Globulin Ratio 1.1 08/22/18 08:58 WBC RBC Hgb Hct MCV MCH MCHC RDW Plt Count MPV Gran % Lymph % (Auto) [place] % (Auto) Eos % (Auto) Baso % (Auto) Gran # Lymph # (Auto) [place] # (Auto) Eos # (Auto) Baso # (Auto) Plt P2Y12 React Units 216 Sodium Potassium Chloride Carbon Dioxide Anion Gap BUN Creatinine Est GFR ( Amer) Est GFR (Non-Af Amer) POC Glucose (mg/dL) Random Glucose Hemoglobin A1c Calcium Total Bilirubin AST ALT Alkaline Phosphatase Troponin I Total Protein Albumin Globulin Albumin/Globulin Ratio Assessment & Plan - Assessment and Plan (Free Text) Assessment: 63 year old female with PMH CABG (2013), HTN, DM, presents for hypertensive urgency, found to have small chronic hemorrhage on brain MRI. Neurology consulted as patient is on dual antiplatelets, aspirin and plavix, in setting of small chronic brain bleed: - Head CT: 4 mm area of slightly increased density in right parietal white matter - hemosiderin deposition from old hemorrhage vs possible cavernous angioma. - unlikely acute hemorrhage. - MRI brain: no acute changes. Small areas of hemosiderin deposition in right parietal white matter and right cerebellar hemisphere c/w chronic hemorrhages - 5 mm - PRU 216 (reference range 194-418) - Can resume low dose baby aspirin, can discontinue plavix - F/u with Dr Sanders outpatient - F/u cardiology recs - Obtain good blood pressure control: c/w home lisinopril, added clonidine as per cardio. Hydralazine prn - Rest of the management as per primary team Discussed case with Dr Sanders. <Harvey Sanders - Last Filed: 08/23/18 11:34> Results - Vital Signs Recent Vital Signs: Last Vital Signs Temp 97.3 F L 08/22/18 12:00 Pulse 64 08/22/18 12:00 Resp 18 08/22/18 12:00 BP 140/58 L 08/22/18 12:00 Pulse Ox 98 08/22/18 06:00 - Labs Result Diagrams: 08/22/18 06:00 08/22/18 06:00 Labs: Laboratory Results - last 24 hr 08/22/18 08/22/18 08/22/18 11:28 11:30 16:01 POC Glucose (mg/dL) 281 H 152 H Troponin I < 0.01 Attending/Attestation - Attestation I have personally seen and examined this patient.: Yes I have fully participated in the care of the patient.: Yes I have reviewed all pertinent clinical information: Yes Notes (Text): 08/23/18 11:32 I agree with the assessment and plan. It appears that Plavix is subtherapeutic based on the PRU result. Therefor, it may not be working and could be stopped. There is a possible previous brain hemorrhage based on neuroimaging. Dual antiplatelet agents can increase the risk of ICH. Aspirin alone may be sufficie nt for cardiovascular protection since the patient does not have stents, but I will defer to cardiology.
[2018-08-22 12:06] VITALS: BP 140/58; PULSE 64; RESP 18; TEMP 97.3
--- NOTE | 2018-08-22 15:01 | CP.PCM.DIS ---
<Forest Hull - Last Filed: 08/22/18 18:13> Provider - Provider Date of Admission: 08/20/18 20:30 Attending physician: Abe Del Castillo MD Primary care physician: Shazia Nick MD Consults: cardiology neurology Time Spent in preparation of Discharge (in minutes): 45 Hospital Course - Lab Results Lab Results: Most Recent Lab Values WBC 6.8 10^3/ul (4.5-11.0) 08/22/18 06:00 RBC 3.63 10^6/uL (3.5-6.1) 08/22/18 06:00 Hgb 10.3 g/dL (12.0-16.0) L 08/22/18 06:00 Hct 31.9 % (36.0-48.0) L 08/22/18 06:00 MCV 87.9 fl (80.0-105.0) 08/22/18 06:00 MCH 28.4 pg (25.0-35.0) 08/22/18 06:00 MCHC 32.3 g/dl (31.0-37.0) 08/22/18 06:00 RDW 13.2 % (11.5-14.5) 08/22/18 06:00 Plt Count 278 10^3/uL (120.0-450.0) 08/22/18 06:00 MPV 11.5 fl (7.0-11.0) H 08/22/18 06:00 Gran % 43.1 % (50.0-68.0) L 08/22/18 06:00 Lymph % (Auto) 44.5 % (22.0-35.0) H 08/22/18 06:00 [place] % (Auto) 9.6 % (1.0-6.0) H 08/22/18 06:00 Eos % (Auto) 2.5 % (1.5-5.0) 08/22/18 06:00 Baso % (Auto) 0.3 % (0.0-3.0) 08/22/18 06:00 Gran # 2.93 (1.4-6.5) 08/22/18 06:00 Lymph # (Auto) 3.0 (1.2-3.4) 08/22/18 06:00 Mercer # (Auto) 0.7 (0.1-0.6) H 08/22/18 06:00 Eos # (Auto) 0.2 (0.0-0.7) 08/22/18 06:00 Baso # (Auto) 0.02 K/mm3 (0.0-2.0) 08/22/18 06:00 PT 11.6 SECONDS (9.4-12.5) 08/20/18 19:41 INR 1.02 08/20/18 19:41 APTT 27.5 Seconds (25.1-36.5) 08/20/18 19:41 Plt P2Y12 React Units 216 PRU (194-418) 08/22/18 08:58 Sodium 134 mmol/L (132-148) 08/22/18 06:00 Potassium 4.9 mmol/L (3.6-5.0) 08/22/18 06:00 Chloride 101 mmol/L (98-107) 08/22/18 06:00 Carbon Dioxide 26 mmol/L (21-33) 08/22/18 06:00 Anion Gap 12 (10-20) 08/22/18 06:00 BUN 30 mg/dL (7-21) H 08/22/18 06:00 Creatinine 1.9 mg/dl (0.7-1.2) H 08/22/18 06:00 Est GFR ( Amer) 32 08/22/18 06:00 Est GFR (Non-Af Amer) 27 08/22/18 06:00 POC Glucose (mg/dL) 281 mg/dL (65-110) H 08/22/18 11:28 Random Glucose 220 mg/dL (70-110) H 08/22/18 06:00 Hemoglobin A1c 8.6 % (4.2-6.5) H 08/20/18 19:41 Calcium 8.7 mg/dL (8.4-10.5) 08/22/18 06:00 Phosphorus 5.3 mg/dL (2.5-4.5) H 08/21/18 06:00 Magnesium 2.0 mg/dL (1.7-2.2) 08/21/18 06:00 Total Bilirubin 0.3 mg/dL (0.2-1.3) 08/22/18 06:00 AST 25 U/L (14-36) 08/22/18 06:00 ALT 20 U/L (7-56) 08/22/18 06:00 Alkaline Phosphatase 147 U/L (38-126) H 08/22/18 06:00 Lactate Dehydrogenase 398 U/L (333-699) 08/20/18 19:41 Total Creatine Kinase 67 U/L (35-230) 08/20/18 19:41 Troponin I < 0.01 ng/mL 08/22/18 11:30 Total Protein 6.8 g/dL (5.8-8.3) 08/22/18 06:00 Albumin 3.5 g/dL (3.0-4.8) 08/22/18 06:00 Globulin 3.3 gm/dL 08/22/18 06:00 Albumin/Globulin Ratio 1.1 (1.1-1.8) 08/22/18 06:00 Triglycerides 139 mg/dL (35-160) 08/21/18 05:30 Cholesterol 159 mg/dL (130-200) 08/21/18 05:30 LDL Cholesterol Direct 43 mg/dL (0-129) 08/21/18 05:30 HDL Cholesterol 46 mg/dL (29-60) 08/21/18 05:30 TSH 3rd Generation 2.93 mIU/mL (0.46-4.68) 08/20/18 19:41 Urine Color Yellow (YELLOW) 08/20/18 19:45 Urine Appearance Turbid (CLEAR) 08/20/18 19:45 Urine pH 6.5 (4.7-8.0) 08/20/18 19:45 Ur Specific [place] 1.015 (1.005-1.035) 08/20/18 19:45 Urine Protein 100 mg/dL (<30 mg/dL) H 08/20/18 19:45 Urine Glucose (UA) 100 mg/dL (NEGATIVE) H 08/20/18 19:45 Urine Ketones Negative mg/dL (NEGATIVE) 08/20/18 19:45 Urine Blood Negative (NEGATIVE) 08/20/18 19:45 Urine Nitrate Negative (NEGATIVE) 08/20/18 19:45 Urine Bilirubin Negative (NEGATIVE) 08/20/18 19:45 Urine Urobilinogen 0.2 E.U./dL (<1 E.U./dL) 08/20/18 19:45 Ur Leukocyte Esterase Trace Nadeem/uL (NEGATIVE) H 08/20/18 19:45 Urine RBC Negative /hpf (0-2) 08/20/18 19:45 Urine WBC 1 - 3 /hpf (0-6) 08/20/18 19:45 - Hospital Course Hospital Course: 63 y/o F with PMHx of CAD s/p CABG, HTN, DM presented to ED for elevated blood pressure of 219/87. Patent denied associated symptoms. EKG showed NSR at 71bpm with T wave inversions inferiorly in lead V2. Patient has extensive cardiac history. Patient was admitted to telemetry for hypertensive emergency and to r/o ACS. In ED, aspirin was given. Blood pressure was 219/87 upon arrival which was improved to 154/85. Troponins were negative x3. Chest x-ray showed no acute proccess. Clonidine and lisinopril were continued. Hydralazine was give for SBP over 180. CT head showed 4mm right parietal white matter density that could represent old infarction or cavernous angioma. Brain MRI was ordered and showed no acute intracranial findings and small areas of hemosiderin deposition in right parietal white matter and right cerebellar hemisphere consistent with chronic hemorrhage. Tylenol was given for headaches. Aspirin and plavix were continued for h/o CAD s/p CABG. Per web design specialist, patient has accelerated HTN and there is no evidence of ACS. Patient has h/o left lower extremity DVT. INR was 1.02 and patient was asymptomatic. DM and HLD were managed medically. Patient was anemic with H/H 10.7/32.7 which was monitored. On morning of discharge, blood pressure was stable at 119/52. She denied headache and other symptoms. Patient will be discharged on aspirin and plavix. Patient is encouraged to comply with her medications, follow up with PCD, and follow up with web design specialist. On discharge: - Please follow up with a primary care physician Dr. Wilson within 3-5 days after discharge - Please follow up with web design specialist Dr. Argueta within 7 days - Please follow up with neurologist Dr. Sanders within 7 days - Please take aspirin and plavix as prescribed - Please take your new blood pressure medication Coreg as prescribed - Please resume your home medications as prescribed - You have been given a script for physical therapy at home and for a rolling walker - Please check your blood pressure daily and provide these reading to your PMD for further control of your blood pressure - Please follow a heart healthy and carbohydrate consistent diet. high fiber diet - Please return to the nearest emergency room if symptoms return. Discharge Exam - Head Exam Head Exam: ATRAUMATIC, NORMOCEPHALIC - Additional Findings Additional findings: - Constitutional Appears: Well, No Acute Distress - Head Exam Head Exam: ATRAUMATIC, NORMOCEPHALIC - Eye Exam Eye Exam: EOMI Additional comments: limited sight - ENT Exam ENT Exam: Mucous Membranes Moist, Normal Exam - Neck Exam Neck Exam: Full ROM, Normal Inspection - Respiratory Exam Respiratory Exam: Clear to Ausculation Bilateral, NORMAL BREATHING PATTERN Additional comments: median sternotomy - Cardiovascular Exam Cardiovascular Exam: REGULAR RHYTHM, +S1, +S2. absent: Gallop, Murmur - GI/Abdominal Exam GI & Abdominal Exam: Soft, Normal Bowel Sounds. absent: Tenderness - Extremities Exam Extremities Exam: Full ROM, Normal Capillary Refill, Normal Inspection. absent: Joint Swelling, Pedal Edema - Back Exam Back Exam: NORMAL INSPECTION - Neurological Exam Neurological Exam: Alert, Awake, CN II-XII Intact, Oriented x3 - Psychiatric Exam Psychiatric exam: Normal Affect, Normal Mood - Skin Skin Exam: Dry, Intact, Normal Color, Warm Discharge Plan - Discharge Medications Prescriptions: Carvedilol [Coreg] 3.125 mg PO BID #28 tab Lisinopril [Zestril] 1 tab PO DAILY #14 tablet - Follow Up Plan Condition: STABLE Disposition: HOME/ ROUTINE Instructions: Hypertension (DC), Hypertension (GEN) Additional Instructions: - Please follow up with a primary care physician Dr. Wilson within 3-5 days after discharge - Please follow up with web design specialist Dr. Argueta within 7 days - Please follow up with neurologist Dr. Sanders within 7 days - Please take aspirin and plavix as prescribed - Please take your new blood pressure medication Coreg as prescribed - Please resume your home medications as prescribed - You have been given a script for physical therapy at home and for a rolling walker - Please check your blood pressure daily and provide these reading to your PMD for further control of your blood pressure - Please follow a heart healthy and carbohydrate consistent diet. high fiber diet - Please return to the nearest emergency room if symptoms return. Referrals: Dillon Argueta MD [Medical Doctor] - Harvey Sanders MD [Staff Provider] - Shazia Nick MD [Primary Care Provider] - <Aeb Del Castillo - Last Filed: 08/23/18 14:52> Provider - Provider Date of Admission: 08/20/18 20:30 Attending physician: Abe Del Castillo MD Primary care physician: Shazia Nick MD Hospital Course - Lab Results Lab Results: Micro Results 08/20/18 22:47 Urine,Clean Catch Urine Culture - Final 10-50,000 CFU/ML. MULTIPLE SPECIES. PROBABLE CONTAMINATION. Most Recent Lab Values WBC 6.8 10^3/ul (4.5-11.0) 08/22/18 06:00 RBC 3.63 10^6/uL (3.5-6.1) 08/22/18 06:00 Hgb 10.3 g/dL (12.0-16.0) L 08/22/18 06:00 Hct 31.9 % (36.0-48.0) L 08/22/18 06:00 MCV 87.9 fl (80.0-105.0) 08/22/18 06:00 MCH 28.4 pg (25.0-35.0) 08/22/18 06:00 MCHC 32.3 g/dl (31.0-37.0) 08/22/18 06:00 RDW 13.2 % (11.5-14.5) 08/22/18 06:00 Plt Count 278 10^3/uL (120.0-450.0) 08/22/18 06:00 MPV 11.5 fl (7.0-11.0) H 08/22/18 06:00 Gran % 43.1 % (50.0-68.0) L 08/22/18 06:00 Lymph % (Auto) 44.5 % (22.0-35.0) H 08/22/18 06:00 [place] % (Auto) 9.6 % (1.0-6.0) H 08/22/18 06:00 Eos % (Auto) 2.5 % (1.5-5.0) 08/22/18 06:00 Baso % (Auto) 0.3 % (0.0-3.0) 08/22/18 06:00 Gran # 2.93 (1.4-6.5) 08/22/18 06:00 Lymph # (Auto) 3.0 (1.2-3.4) 08/22/18 06:00 [place] # (Auto) 0.7 (0.1-0.6) H 08/22/18 06:00 Eos # (Auto) 0.2 (0.0-0.7) 08/22/18 06:00 Baso # (Auto) 0.02 K/mm3 (0.0-2.0) 08/22/18 06:00 PT 11.6 SECONDS (9.4-12.5) 08/20/18 19:41 INR 1.02 08/20/18 19:41 APTT 27.5 Seconds (25.1-36.5) 08/20/18 19:41 Plt P2Y12 React Units 216 PRU (194-418) 08/22/18 08:58 Sodium 134 mmol/L (132-148) 08/22/18 06:00 Potassium 4.9 mmol/L (3.6-5.0) 08/22/18 06:00 Chloride 101 mmol/L (98-107) 08/22/18 06:00 Carbon Dioxide 26 mmol/L (21-33) 08/22/18 06:00 Anion Gap 12 (10-20) 08/22/18 06:00 BUN 30 mg/dL (7-21) H 08/22/18 06:00 Creatinine 1.9 mg/dl (0.7-1.2) H 08/22/18 06:00 Est GFR ( Amer) 32 08/22/18 06:00 Est GFR (Non-Af Amer) 27 08/22/18 06:00 POC Glucose (mg/dL) 152 mg/dL (65-110) H 08/22/18 16:01 Random Glucose 220 mg/dL (70-110) H 08/22/18 06:00 Hemoglobin A1c 8.6 % (4.2-6.5) H 08/20/18 19:41 Calcium 8.7 mg/dL (8.4-10.5) 08/22/18 06:00 Phosphorus 5.3 mg/dL (2.5-4.5) H 08/21/18 06:00 Magnesium 2.0 mg/dL (1.7-2.2) 08/21/18 06:00 Total Bilirubin 0.3 mg/dL (0.2-1.3) 08/22/18 06:00 AST 25 U/L (14-36) 08/22/18 06:00 ALT 20 U/L (7-56) 08/22/18 06:00 Alkaline Phosphatase 147 U/L (38-126) H 08/22/18 06:00 Lactate Dehydrogenase 398 U/L (333-699) 08/20/18 19:41 Total Creatine Kinase 67 U/L (35-230) 08/20/18 19:41 Troponin I < 0.01 ng/mL 08/22/18 11:30 Total Protein 6.8 g/dL (5.8-8.3) 08/22/18 06:00 Albumin 3.5 g/dL (3.0-4.8) 08/22/18 06:00 Globulin 3.3 gm/dL 08/22/18 06:00 Albumin/Globulin Ratio 1.1 (1.1-1.8) 08/22/18 06:00 Triglycerides 139 mg/dL (35-160) 08/21/18 05:30 Cholesterol 159 mg/dL (130-200) 08/21/18 05:30 LDL Cholesterol Direct 43 mg/dL (0-129) 08/21/18 05:30 HDL Cholesterol 46 mg/dL (29-60) 08/21/18 05:30 TSH 3rd Generation 2.93 mIU/mL (0.46-4.68) 08/20/18 19:41 Urine Color Yellow (YELLOW) 08/20/18 19:45 Urine Appearance Turbid (CLEAR) 08/20/18 19:45 Urine pH 6.5 (4.7-8.0) 08/20/18 19:45 Ur Specific [place] 1.015 (1.005-1.035) 08/20/18 19:45 Urine Protein 100 mg/dL (<30 mg/dL) H 08/20/18 19:45 Urine Glucose (UA) 100 mg/dL (NEGATIVE) H 08/20/18 19:45 Urine Ketones Negative mg/dL (NEGATIVE) 08/20/18 19:45 Urine Blood Negative (NEGATIVE) 08/20/18 19:45 Urine Nitrate Negative (NEGATIVE) 08/20/18 19:45 Urine Bilirubin Negative (NEGATIVE) 08/20/18 19:45 Urine Urobilinogen 0.2 E.U./dL (<1 E.U./dL) 08/20/18 19:45 Ur Leukocyte Esterase Trace Nadeem/uL (NEGATIVE) H 08/20/18 19:45 Urine RBC Negative /hpf (0-2) 08/20/18 19:45 Urine WBC 1 - 3 /hpf (0-6) 08/20/18 19:45 Attending/Attestation - Attestation I have personally seen and examined this patient.: Yes I have fully participated in the care of the patient.: Yes I have reviewed all pertinent clinical information, including history, physical exam and plan: Yes Notes (Text): 08/23/18 14:50 attending note; Patient seen and examined with resident. Patient is complaining of mild headache. Denies any nausea, vomiting. Denies any neck pain. Chest pain is resolving. Tolerating diet well. Patient usually ambulates with a cane/walker at home. Patient is a 63 year old female with a PMH of CABG, HTN, DM who presented to the ED for elevated blood pressure 219/87. EKG shows NSR at 71bpm with T wave inversions inferiorly in lead V2. Patient with extensive cardiac history adm itted to telemetry for hypertensive emergency and to r/o ACS. patient is noncompliance with medication. Started on lisinopril. Coreg added. Cardiac enzymes negative. Cardiology evaluation appreciated. Patient follows up with web design specialist . Headache; CT head showed possible old hemorrhage. MRI showed no acute intracranial findings and small areas of hemosiderin deposition in right parietal white matter and right cerebellar hemisphere consistent with chronic hemorrhage. advised to follow web design specialist to stop Plavix. Continue aspirin. PT evaluation appreciated. Home PT recommended. Prescription for PT given. air quality manager evaluation appreciated. Discharge patient home today. Upon discharge patient will follow up with PMD Dr. Mccray. 08/23/18 14:51
--- NOTE | 2018-08-22 18:16 | PN ---
DATE: 08/22/2018 CARDIOLOGY FOLLOWUP SUBJECTIVE: The patient is complaining of cough. No shortness of breath. No chest pain. PHYSICAL EXAMINATION: VITAL SIGNS: Blood pressure 140/58, heart rate is in the 60s. NECK: Negative JVD. LUNGS: Without rales. HEART: S1, S2. EXTREMITIES: Without edema. LABORATORY DATA: Hemoglobin is 10.3. Chemistries: BUN and creatinine are 30 and 1.9. Glucose of 220. IMPRESSION: 1. Accelerated hypertension which is under control now. 2. Resolution of chest pain. 3. History of coronary artery bypass surgery. 4. Coronary artery disease. 5. Hyperlipidemia. Given these findings, the patient is followed by a organizational psychologist in [place] and she states she will return to him for continued followup. We will discontinue telemetry today. No further cardiac workup is necessary. Neel Moreno MD
== END 2018-08-22 17:58 | disposition home health service (06) ==
LOC: ED 18:26 → ERH 20:30 → 2RNO 22:49
PROVIDERS: ADMIT Internal Medicine; ATTEND Internal Medicine
DX: I16.1 Hypertensive emergency (principal); I12.9 Hypertensive chronic kidney disease with stage 1 through stage 4 chronic kidney disease, or unspecified chronic kidney disease; N18.9 Chronic kidney disease, unspecified; E11.22 Type 2 diabetes mellitus with diabetic chronic kidney disease; D64.9 Anemia, unspecified; E78.5 Hyperlipidemia, unspecified; I25.10 Atherosclerotic heart disease of native coronary artery without angina pectoris; R07.89 Other chest pain; J45.909 Unspecified asthma, uncomplicated; Z79.02 Long term (current) use of antithrombotics/antiplatelets; H54.8 Legal blindness, as defined in USA; Z86.718 Personal history of other venous thrombosis and embolism; Z95.1 Presence of aortocoronary bypass graft; Z79.82 Long term (current) use of aspirin; Z79.84 Long term (current) use of oral hypoglycemic drugs; Z91.14 Patient's other noncompliance with medication regimen
CPT/HCPCS: 36415; 70450; 70551; 71045; 80053; 80061; 81001; 82139; 82550; 82948; 83036; 83615; 83735; 84100; 84443; 84484; 85025; 85610; 85730; 87086; 93005; 97161; 99285; C9113; G0378; G8978; G8979

== ENCOUNTER 2018-10-16 14:57 | Observation (INO) | payer OTHER ==
[2018-10-16 15:43] VITALS: BMI 31.1
[2018-10-16 16:17] LABS: BASO # 0.03 K/mm3 (0.0-2.0); BASO % 0.5 % (0.0-3.0); EOS # 0.2 (0.0-0.7); EOS % 3.2 % (1.5-5.0); GRAN # 3.36 (1.4-6.5); GRAN % 50.5 % (50.0-68.0); HEMOGLOBIN 10.8 g/dL (12.0-16.0); LYMPH # 2.5 (1.2-3.4); MEAN CELL VOLUME 88.4 fl (80.0-105.0); MEAN CORPUSCULAR HEMOGLOBIN 28.6 pg (25.0-35.0); MEAN CORPUSCULAR HGB CONC 32.3 g/dl (31.0-37.0); MEAN PLATELET VOLUME 11.3 fl (7.0-11.0); MONO # 0.5 (0.1-0.6); MONO % 7.8 % (1.0-6.0); RBC 3.78 10^6/uL (3.5-6.1); RED CELL DISTRIBUTION WIDTH 13.2 % (11.5-14.5); WHITE BLOOD COUNT 6.7 10^3/uL (4.5-11.0)
[2018-10-16 16:32] LABS: ALB/GLOB RATIO 1.1 (1.1-1.8); ALBUMIN 3.7 g/dL (3.0-4.8); ALT/SGPT 24 U/L (7-56); AST/SGOT 24 U/L (14-36); BLOOD UREA NITROGEN 33 mg/dL (7-21); CALCIUM 8.9 mg/dL (8.4-10.5); GFR NON-AFRICAN AMERICAN 22
[2018-10-16 16:42] LABS: B-TYPE NATRIURETIC PEPTIDE 533 pg/mL (0-450); TROPONIN I < 0.01 ng/mL
--- NOTE | 2018-10-16 16:44 | RAD ---
Date of service: 10/16/2018 HISTORY: chest pain COMPARISON: 08/20/2018 FINDINGS: LUNGS: No active pulmonary disease. PLEURA: No significant pleural effusion identified, no pneumothorax apparent. CARDIOVASCULAR: No aortic atherosclerotic calcification present. Mild cardiomegaly no pulmonary vascular congestion. OSSEOUS STRUCTURES: Sternal wires VISUALIZED UPPER ABDOMEN: Normal. OTHER FINDINGS: None. IMPRESSION: No active disease.
--- NOTE | 2018-10-16 17:24 | ED PDOC ---
Arrival/HPI - General Chief Complaint: Chest Pain Time Seen by Provider: 10/16/18 15:09 Historian: Patient - History of Present Illness Narrative History of Present Illness (Text): 10/16/18 17:21 63 year old female, with past medical history of PMH of CABG, HTN, and DM, presents to the Emergency department complaining of worsening chest pain for past 2 days. Patient informs chronic right sided chest pain described as non-radiating sharp achy pain, which has been worsening for past 2 days prompting her to present to the ED for medical evaluation. Patient informs occasional cough but denies any other associated somatic complaints. Patient denies any fever, chills, nausea, vomiting, diarrhea, abdominal pain, shortness of breath , leg pain or leg swelling, headache, dizziness, weakness, urinary symptoms, or any other complaints. 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) - HEENT Hx HEENT Disorder: Yes (USING GLASSES) Hx Blind: Yes (legally blind) - Renal Hx Renal Disorder: (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) Hx Dialysis: Yes (4 TIMES ONLY AFTER CABG) - Endocrine/Metabolic Hx Endocrine Disorders: Yes Hx Diabetes Mellitus Type 1: Yes Hx Diabetes Mellitus Type 2: Yes - Musculoskeletal/Rheumatological Hx Falls: Yes - Psychiatric Hx Psychophysiologic Disorder: Yes Hx Depression: Yes Hx Substance Use: No - Surgical History Hx Cardiac Catheterization: Yes Hx Open Heart Surgery: Yes - Anesthesia Hx Anesthesia: Yes Hx Anesthesia Reactions: No Hx Malignant Hyperthermia: No - Suicidal Assessment Feels Threatened In Home Enviroment: No Family/Social History - Physician Review Nursing Documentation Reviewed: Yes Family/Social History: Unknown Family HX Smoking Status: Never Smoked Hx Alcohol Use: No Hx Substance Use: No Hx Substance Use Treatment: No Allergies/Home Meds Allergies/Adverse Reactions: Allergies No Known Allergies Allergy (Verified 06/09/13 20:22) Home Medications: Home Meds Medication Instructions Recorded Confirmed Alogliptin Godwin/Metformin HCl 1 tab PO DAILY 10/03/18 11/29/18 [Alogliptin-Metformin 12.5-1000] Aspirin [Ecotrin] 1 tab PO DAILY 08/20/18 10/16/18 Atorvastatin [Lipitor] 1 tab PO HS 08/20/18 10/16/18 Multivitamin [Multivitamins] 1 tab PO DAILY 08/20/18 10/16/18 Review of Systems - Physician Review All systems were reviewed & negative as marked: Yes - Review of Systems Constitutional: absent: Fevers Respiratory: absent: SOB, Cough Cardiovascular: Chest Pain Gastrointestinal: absent: Abdominal Pain, Diarrhea, Nausea, Vomiting Genitourinary Female: absent: Dysuria, Urine Output Changes Musculoskeletal: absent: Back Pain, Neck Pain Skin: absent: Rash Neurological: absent: Headache, Dizziness Physical Exam Vital Signs Reviewed: Yes Vital Signs Temp Pulse Pulse Resp BP BP Pulse Ox 10/16/18 16:07 71 169/75 H 10/16/18 14:57 98 F 75 18 169/75 H 98 Temperature: Afebrile Blood Pressure: Hypertensive Pulse: Regular Respiratory Rate: Normal Appearance: Positive for: Well-Appearing, Non-Toxic, Comfortable Pain Distress: None Mental Status: Positive for: Alert and Oriented X 3 - Systems Exam Head: Present: Atraumatic, Normocephalic Pupils: Present: PERRL Extroacular Muscles: Present: EOMI Conjunctiva: Present: Normal Respiratory/Chest: Present: Clear to Auscultation, Good Air Exchange, Tender to Palpation (Tenderness to palpation to right anterior chest wall without edema, ecchymosis, erythema, step-offs or crepitus.). No: Respiratory Distress, Accessory Muscle Use Cardiovascular: Present: Regular Rate and Rhythm, Normal S1, S2. No: Murmurs Abdomen: No: Tenderness, Distention, Peritoneal Signs Back: Present: Normal Inspection. No: CVA Tenderness Upper Extremity: Present: Normal Inspection. No: Cyanosis, Edema Lower Extremity: Present: Normal Inspection. No: Edema Neurological: Present: GCS=15, CN II-XII Intact, Speech Normal Skin: Present: Warm, Dry, Normal Color. No: Rashes Psychiatric: Present: Alert, Oriented x 3, Normal Insight, Normal Concentration Medical Decision Making ED Course and Treatment: 10/16/18 15:37 Impression: 63 year old female presents to the Emergency department complaining of exacerbation of chronic chest pain. Plan: -- Labs -- Chest X-ray -- EKG -- Urinalysis -- Reassess and disposition Prior Visits: Notes and results from previous visits were reviewed. Progress Notes: 10/16/18 15:50 Labs reviewed, which shows elevated BNP and creatinine, which is mildly increased from last month. Patient's BS is elevated at 254. 10/16/18 16:00 Chest X-ray reviewed by radiologist, shows no active disease. asa given po 10/16/18 17:[address] Fink, who is aware and agrees with ED management plan, accepts patient to Telemetry under his service for further observation and r/o ACS. impression; Chest pain admit observational status to tele - Lab Interpretations Lab Results: 10/16/18 15:16 10/16/18 15:16 Lab Results 10/16/18 15:16: Sodium 138, Potassium 4.7, Chloride 107, Carbon Dioxide 23, Anion Gap 13, BUN 33 H, Creatinine 2.2 H, Est GFR ( Amer) 27, Est GFR (Non-Af Amer) 22, Random Glucose 254 H, Calcium 8.9, Total Bilirubin 0.3, AST 24, ALT 24, Alkaline Phosphatase 158 H, Lactate Dehydrogenase 366, Total Creatine Kinase 49, Troponin I < 0.01, NT-Pro-B Natriuret Pep 533 H, Total Protein 7.1, Albumin 3.7, Globulin 3.5, Albumin/Globulin Ratio 1.1 10/16/18 15:16: WBC 6.7, RBC 3.78, Hgb 10.8 L, Hct 33.4 L, MCV 88.4, MCH 28.6, MCHC 32.3, RDW 13.2, Plt Count 270, MPV 11.3 H, Gran % 50.5, Lymph % (Auto) 38.0 H, [place] % (Auto) 7.8 H, Eos % (Auto) 3.2, Baso % (Auto) 0.5, Gran # 3.36, Lymph # (Auto) 2.5, [place] # (Auto) 0.5, Eos # (Auto) 0.2, Baso # (Auto) 0.03 - RAD Interpretation Radiology Orders: 10/16/18 15:39 CHEST PORTABLE [RAD] Stat - PA / PROCESS CONTROLS TECHNICIAN / Resident Statement MD/DO has reviewed & agrees with the documentation as recorded. - Scribe Statement The provider has reviewed the documentation as recorded by the Amandeepibanika Sood. All medical record entries made by the Reece were at my direction and personally dictated by me. I have reviewed the chart and agree that the record accurately reflects my personal performance of the history, physical exam, medical decision making, and the department course for this patient. I have also personally directed, reviewed, and agree with the discharge instructions and disposition. Disposition/Present on Arrival - Present on Arrival Any Indicators Present on Arrival: No History of DVT/PE: No History of Uncontrolled Diabetes: No Urinary Catheter: No History of Decub. Ulcer: No History Surgical Site Infection Following: CABG - Mediastinitis, None - Disposition Have Diagnosis and Disposition been Completed?: Yes Diagnosis: Chest pain Disposition: HOSPITALIZED Disposition Time: 17:00 Patient Plan: Observation Condition: FAIR
--- NOTE | 2018-10-16 18:37 | CARD ---
APPROVED REPORT Date of service: 10/16/2018 EKG Measurement Heart [id number] <Conclusion> Normal sinus rhythm ST & T wave abnormality, consider lateral ischemia Abnormal ECG
--- NOTE | 2018-10-16 18:40 | CP.PCM.HP ---
<Hattie Marino - Last Filed: 10/16/18 22:10> History of Present Illness - History of Present Illness History of Present Illness: HISTORY & PHYSICAL NOTE FOR HOSPITALIST TEAM Hattie Marino PGY1 63 y/o F with PMHx of CABG, HTN, DM presents to ED with complaints of R sided non-radiating sharp achy chest pain that has been ongoing for 2 days that is worse with movement and palpation, alleviated with tylenol. Pain is not associated with deep breathing, or worsened with exertion. She also complains of non-specific abdominal pain that is worse with deep palpation. She denies fevers, chills, headache, dizziness, palpitations, shortness of breath, diaphoresis, constipation, nausea, vomiting, diarrhea. PMH: HTN, DM, HLD PSH: CABG 2013 FH: Mother 70, DM. Father 80, DM, HTN. 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: Present on Admission - Present on Admission Any Indicators Present on Admission: Yes History of Uncontrolled Diabetes: Yes Review of Systems - Review of Systems Review of Systems: per HPI Past Patient History - Infectious Disease Hx of Infectious Diseases: None - Tetanus Immunizations Tetanus Immunization: Unknown - Past Social History Smoking Status: Never Smoked - CARDIAC Hx Cardiac Disorders: Yes Hx Hypertension: Yes Hx Peripheral Edema: Yes (RT PEDAL EDEMA) Other/Comment: open heart surgery - PULMONARY Hx Asthma: Yes - NEUROLOGICAL 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) - HEENT Hx HEENT Problems: Yes (USING GLASSES) Hx Blind: Yes (legally blind) - RENAL Hx Chronic Kidney Disease: (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) Hx Dialysis: Yes (4 TIMES ONLY AFTER CABG) - ENDOCRINE/METABOLIC Hx Endocrine Disorders: Yes Hx Diabetes Mellitus Type 1: Yes Hx Diabetes Mellitus Type 2: Yes - MUSCULOSKELETAL/RHEUMATOLOGICAL Hx Falls: Yes - PSYCHIATRIC Hx Psychophysiologic Disorder: Yes Hx Depression: Yes Hx Substance Use: No - SURGICAL HISTORY Hx Cardiac Catheterization: Yes Hx Open Heart Surgery: Yes - ANESTHESIA Hx Anesthesia: Yes Hx Anesthesia Reactions: No Hx Malignant Hyperthermia: No Meds Allergies/Adverse Reactions: Allergies Allergy/AdvReac Type Severity Reaction Status Date / Time No Known Allergies Allergy Verified 06/09/13 20:22 Physical Exam - Constitutional Appears: Well, Non-toxic, No Acute Distress - Head Exam Head Exam: NORMAL INSPECTION, NORMOCEPHALIC - Eye Exam Eye Exam: EOMI, Normal appearance - ENT Exam ENT Exam: Mucous Membranes Moist, Normal Exam - Neck Exam Neck exam: Positive for: Normal Inspection - Respiratory Exam Respiratory Exam: Clear to Auscultation Bilateral - Cardiovascular Exam Cardiovascular Exam: REGULAR RHYTHM, +S1, +S2 - GI/Abdominal Exam GI & Abdominal Exam: Guarding, Soft. absent: Tenderness - Extremities Exam Extremities exam: Positive for: normal inspection. Negative for: calf tenderness - Back Exam Back exam: NORMAL INSPECTION - Neurological Exam Neurological exam: Alert, Oriented x3 - Psychiatric Exam Psychiatric exam: Normal Affect, Normal Mood - Skin Skin Exam: Dry, Intact, Warm Results - Vital Signs Recent Vital Signs: Last Vital Signs Temp 98 F 10/16/18 14:57 Pulse 86 10/16/18 17:49 Resp 18 10/16/18 17:49 BP 174/80 H 10/16/18 17:49 Pulse Ox 98 10/16/18 17:49 - Labs Result Diagrams: 10/16/18 15:16 10/16/18 15:16 Labs: Laboratory Results - last 24 hr 10/16/18 10/16/18 15:16 15:16 WBC 6.7 RBC 3.78 Hgb 10.8 L Hct 33.4 L MCV 88.4 MCH 28.6 MCHC 32.3 RDW 13.2 Plt Count 270 MPV 11.3 H Gran % 50.5 Lymph % (Auto) 38.0 H [place] % (Auto) 7.8 H Eos % (Auto) 3.2 Baso % (Auto) 0.5 Gran # 3.36 Lymph # (Auto) 2.5 [place] # (Auto) 0.5 Eos # (Auto) 0.2 Baso # (Auto) 0.03 Sodium 138 Potassium 4.7 Chloride 107 Carbon Dioxide 23 Anion Gap 13 BUN 33 H Creatinine 2.2 H Est GFR ( Amer) 27 Est GFR (Non-Af Amer) 22 Random Glucose 254 H Calcium 8.9 Total Bilirubin 0.3 AST 24 ALT 24 Alkaline Phosphatase 158 H Lactate Dehydrogenase 366 Total Creatine Kinase 49 Troponin I < 0.01 NT-Pro-B Natriuret Pep 533 H Total Protein 7.1 Albumin 3.7 Globulin 3.5 Albumin/Globulin Ratio 1.1 Assessment & Plan - Assessment and Plan (Free Text) Assessment: 63 y/o F with PMHx of CABG, HTN, DM admitted chest pain r/o ACS and abdominal pain Plan: Chest Pain r/o ACS Likely musculoskeletal. Reproducible with palpation EKG shows no changes. chest xray negative Initial troponins negative, trend troponins q6h Aspirin 325 in ED continue asa atorvastatin carvedilol lisinopril Abdominal pain f/u CT abdomen/pelvis Hx of DM Insulin SS DVT Ppx: Hep Case seen, examined and discussed with attending physician, Dr. Fink <Dillon Fink - Last Filed: 10/17/18 16:58> Results - Vital Signs Recent Vital Signs: Last Vital Signs Temp 97.9 F 10/17/18 12:00 Pulse 84 10/17/18 16:00 Resp 19 10/17/18 12:00 BP 172/75 H 10/17/18 16:00 Pulse Ox 97 10/17/18 06:00 - Labs Result Diagrams: 10/17/18 06:00 10/17/18 06:00 Labs: Laboratory Results - last 24 hr 10/16/18 10/16/18 10/16/18 19:24 21:24 21:59 WBC RBC Hgb Hct MCV MCH MCHC RDW Plt Count MPV Gran % Lymph % (Auto) [place] % (Auto) Eos % (Auto) Baso % (Auto) Gran # Lymph # (Auto) [place] # (Auto) Eos # (Auto) Baso # (Auto) APTT Sodium Potassium Chloride Carbon Dioxide Anion Gap BUN Creatinine Est GFR ( Amer) Est GFR (Non-Af Amer) POC Glucose (mg/dL) 100 95 Random Glucose Calcium Phosphorus Magnesium Total Bilirubin AST ALT Alkaline Phosphatase Troponin I 0.01 Total Protein Albumin Globulin Albumin/Globulin Ratio 10/17/18 10/17/18 10/17/18 03:41 06:00 06:00 WBC 7.3 RBC 4.07 Hgb 11.7 L Hct 35.6 L MCV 87.5 MCH 28.7 MCHC 32.9 RDW 13.3 Plt Count 304 MPV 11.5 H Gran % 61.6 Lymph % (Auto) 27.7 [place] % (Auto) 7.4 H Eos % (Auto) 3.0 Baso % (Auto) 0.3 Gran # 4.52 Lymph # (Auto) 2.0 [place] # (Auto) 0.5 Eos # (Auto) 0.2 Baso # (Auto) 0.02 APTT Sodium 139 Potassium 4.7 Chloride 106 Carbon Dioxide 25 Anion Gap 13 BUN 38 H Creatinine 1.9 H Est GFR ( Amer) 32 Est GFR (Non-Af Amer) 27 POC Glucose (mg/dL) 155 H Random Glucose 187 H Calcium 9.0 Phosphorus 4.3 Magnesium 1.7 Total Bilirubin 0.2 AST 24 ALT 22 Alkaline Phosphatase 179 H Troponin I 0.02 D Total Protein 7.4 Albumin 3.8 Globulin 3.6 Albumin/Globulin Ratio 1.0 L 10/17/18 10/17/18 10/17/18 06:00 08:13 12:11 WBC RBC Hgb Hct MCV MCH MCHC RDW Plt Count MPV Gran % Lymph % (Auto) [place] % (Auto) Eos % (Auto) Baso % (Auto) Gran # Lymph # (Auto) [place] # (Auto) Eos # (Auto) Baso # (Auto) APTT 27.7 Sodium Potassium Chloride Carbon Dioxide Anion Gap BUN Creatinine Est GFR ( Amer) Est GFR (Non-Af Amer) POC Glucose (mg/dL) 165 H 191 H Random Glucose Calcium Phosphorus Magnesium Total Bilirubin AST ALT Alkaline Phosphatase Troponin I Total Protein Albumin Globulin Albumin/Globulin Ratio 10/17/18 15:45 WBC RBC Hgb Hct MCV MCH MCHC RDW Plt Count MPV Gran % Lymph % (Auto) [place] % (Auto) Eos % (Auto) Baso % (Auto) Gran # Lymph # (Auto) [place] # (Auto) Eos # (Auto) Baso # (Auto) APTT Sodium Potassium Chloride Carbon Dioxide Anion Gap BUN Creatinine Est GFR ( Amer) Est GFR (Non-Af Amer) POC Glucose (mg/dL) 128 H Random Glucose Calcium Phosphorus Magnesium Total Bilirubin AST ALT Alkaline Phosphatase Troponin I Total Protein Albumin Globulin Albumin/Globulin Ratio Attending/Attestation - Attestation I have personally seen and examined this patient.: Yes I have fully participated in the care of the patient.: Yes I have reviewed all pertinent clinical information: Yes Notes (Text): 10/17/18 16:55 Patient was seen and 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 63 yrs old F with PMH of CABG, HTN, DM,stage III CKD base line creatinin 1.9 is admitted with right sided chest pain since last 2 weeks, Patient has chest wall tenderness. EKG was reviewed and was compared with old EKG, there is no new changes. We will observe patient in telemetry, we will get serial troponin and will get cardiology consult. Abdominal pain is isaias specific, we will get CT abdomen and Pelvis. Management plan was discussed in detail with patient. Education was provided.
[2018-10-16] MEDS: Insulin Reg-LOW-Coverage SC SCH (21:26)
[2018-10-17 07:01] LABS: ALBUMIN 3.8 g/dL (3.0-4.8)
[2018-10-17 07:05] LABS: BASO # 0.02 K/mm3 (0.0-2.0); BASO % 0.3 % (0.0-3.0); EOS # 0.2 (0.0-0.7); GRAN # 4.52 (1.4-6.5); GRAN % 61.6 % (50.0-68.0); HEMOGLOBIN 11.7 g/dL (12.0-16.0); LYMPH % 27.7 % (22.0-35.0); MEAN CELL VOLUME 87.5 fl (80.0-105.0); MEAN CORPUSCULAR HEMOGLOBIN 28.7 pg (25.0-35.0); MEAN CORPUSCULAR HGB CONC 32.9 g/dl (31.0-37.0); MEAN PLATELET VOLUME 11.5 fl (7.0-11.0); MONO # 0.5 (0.1-0.6); MONO % 7.4 % (1.0-6.0); RBC 4.07 10^6/uL (3.5-6.1); RED CELL DISTRIBUTION WIDTH 13.3 % (11.5-14.5); WHITE BLOOD COUNT 7.3 10^3/uL (4.5-11.0)
[2018-10-17 07:06] VITALS: O2SAT 97
[2018-10-17 07:23] LABS: TROPONIN I 0.02 ng/mL
[2018-10-17] MEDS: Insulin Reg-LOW-Coverage SC SCH ×4 (08:18→22:44)
[2018-10-17] MEDS: Multivitamin Therapeutic Tab PO SCH (09:09)
--- NOTE | 2018-10-17 10:07 | CT ---
Date of service: 10/16/2018 PROCEDURE: CT Abdomen and Pelvis without intravenous contrast HISTORY: abdominal pain COMPARISON: None. TECHNIQUE: Technique. Contrast dose: Radiation dose: Total exam DLP = 618.21 mGy-cm. This CT exam was performed using one or more of the following dose reduction techniques: Automated exposure control, adjustment of the mA and/or kV according to patient size, and/or use of iterative reconstruction technique. FINDINGS: LOWER THORAX: Unremarkable. LIVER: Unremarkable. No gross lesion or ductal dilatation. GALLBLADDER AND BILE DUCTS: Cholecystectomy. PANCREAS: Unremarkable. No gross lesion or ductal dilatation. SPLEEN: Unremarkable. ADRENALS: Unremarkable. No mass. KIDNEYS AND URETERS: Unremarkable. No hydronephrosis. No solid mass. VASCULATURE: Unremarkable. No aortic aneurysm. No aortic atherosclerotic calcification or mural plaque present. BOWEL: Unremarkable. No obstruction. No gross mural thickening. APPENDIX: Unremarkable. Normal appendix. PERITONEUM: Unremarkable. No free fluid. No free air. LYMPH NODES: Unremarkable. No enlarged lymph nodes. BLADDER: Unremarkable. REPRODUCTIVE: Unremarkable. BONES: No acute fracture. OTHER FINDINGS: None. IMPRESSION: Cholecystectomy.
[2018-10-17] MEDS ORDERED: POLYETHYLENE GLYCOL 3350 17 GM/Dose PACKET PO ONE (10:58)
--- NOTE | 2018-10-17 13:43 | CP.PCM.DIS ---
<Ry Ibanez - Last Filed: 10/17/18 14:33> Provider - Provider Date of Admission: 10/16/18 17:28 Attending physician: Dillon Fink MD Primary care physician: Dr. Umaña Consults: Consulting Provider: Neel Moreno Time Spent in preparation of Discharge (in minutes): 40 Hospital Course - Lab Results Lab Results: Most Recent Lab Values WBC 7.3 10^3/uL (4.5-11.0) 10/17/18 06:00 RBC 4.07 10^6/uL (3.5-6.1) 10/17/18 06:00 Hgb 11.7 g/dL (12.0-16.0) L 10/17/18 06:00 Hct 35.6 % (36.0-48.0) L 10/17/18 06:00 MCV 87.5 fl (80.0-105.0) 10/17/18 06:00 MCH 28.7 pg (25.0-35.0) 10/17/18 06:00 MCHC 32.9 g/dl (31.0-37.0) 10/17/18 06:00 RDW 13.3 % (11.5-14.5) 10/17/18 06:00 Plt Count 304 10^3/uL (120.0-450.0) 10/17/18 06:00 MPV 11.5 fl (7.0-11.0) H 10/17/18 06:00 Gran % 61.6 % (50.0-68.0) 10/17/18 06:00 Lymph % (Auto) 27.7 % (22.0-35.0) 10/17/18 06:00 [place] % (Auto) 7.4 % (1.0-6.0) H 10/17/18 06:00 Eos % (Auto) 3.0 % (1.5-5.0) 10/17/18 06:00 Baso % (Auto) 0.3 % (0.0-3.0) 10/17/18 06:00 Gran # 4.52 (1.4-6.5) 10/17/18 06:00 Lymph # (Auto) 2.0 (1.2-3.4) 10/17/18 06:00 [place] # (Auto) 0.5 (0.1-0.6) 10/17/18 06:00 Eos # (Auto) 0.2 (0.0-0.7) 10/17/18 06:00 Baso # (Auto) 0.02 K/mm3 (0.0-2.0) 10/17/18 06:00 APTT 27.7 Seconds (25.1-36.5) 10/17/18 06:00 Sodium 139 mmol/L (132-148) 10/17/18 06:00 Potassium 4.7 mmol/L (3.6-5.0) 10/17/18 06:00 Chloride 106 mmol/L (98-107) 10/17/18 06:00 Carbon Dioxide 25 mmol/L (21-33) 10/17/18 06:00 Anion Gap 13 (10-20) 10/17/18 06:00 BUN 38 mg/dL (7-21) H 10/17/18 06:00 Creatinine 1.9 mg/dl (0.7-1.2) H 10/17/18 06:00 Est GFR ( Amer) 32 10/17/18 06:00 Est GFR (Non-Af Amer) 27 10/17/18 06:00 POC Glucose (mg/dL) 191 mg/dL (65-110) H 10/17/18 12:11 Random Glucose 187 mg/dL (70-110) H 10/17/18 06:00 Calcium 9.0 mg/dL (8.4-10.5) 10/17/18 06:00 Phosphorus 4.3 mg/dL (2.5-4.5) 10/17/18 06:00 Magnesium 1.7 mg/dL (1.7-2.2) 10/17/18 06:00 Total Bilirubin 0.2 mg/dL (0.2-1.3) 10/17/18 06:00 AST 24 U/L (14-36) 10/17/18 06:00 ALT 22 U/L (7-56) 10/17/18 06:00 Alkaline Phosphatase 179 U/L (38-126) H 10/17/18 06:00 Lactate Dehydrogenase 366 U/L (333-699) 10/16/18 15:16 Total Creatine Kinase 49 U/L (35-230) 10/16/18 15:16 Troponin I 0.02 ng/mL D 10/17/18 06:00 NT-Pro-B Natriuret Pep 533 pg/mL (0-450) H 10/16/18 15:16 Total Protein 7.4 g/dL (5.8-8.3) 10/17/18 06:00 Albumin 3.8 g/dL (3.0-4.8) 10/17/18 06:00 Globulin 3.6 gm/dL 10/17/18 06:00 Albumin/Globulin Ratio 1.0 (1.1-1.8) L 10/17/18 06:00 - Hospital Course Hospital Course: 63 y/o F with PMHx of CABG, HTN, DM admitted for chest pain r/o ACS and abdominal pain. EKG shows no changes. Troponins were negative x2. Chest xray negative. Abdomen /Pelvic CT showed a previous cholecystectomy with no hydronephrosis or obstruction. Patient had a bowel movement day before discharge. Patient was monitored and found to be hypertensive without headaches or dizziness. Chest pain was found to be reproducible and tender to palpation. Patient's BP resolved after receiving home medications. Dr. Moreno was consulted for cardiology, and recommended to follow up with personal outpatient cable tool operator regarding ongoing monitoring and evaluation. Patient was told to continue home meds and f/u with PCP and Dredge Operator. Recomm ended medication compliance and close follow up. Patient's questions were answered to patient's satisfaction. Patient states symptoms have improved and she is ready and prepared for discharge. Patient was urged to continue on dual antiplatelet therapy as well as Miralax, lipitor, coreg and Zestril. Patient seen, case reviewed and plan approved by Dr. Fink. Discharge Exam - Head Exam Head Exam: NORMAL INSPECTION, NORMOCEPHALIC - Additional Findings Additional findings: - Constitutional Appears: Well, Non-toxic, No Acute Distress - Head Exam Head Exam: NORMAL INSPECTION, NORMOCEPHALIC - Eye Exam Eye Exam: EOMI, Normal appearance - ENT Exam ENT Exam: Mucous Membranes Moist, Normal Exam - Neck Exam Neck exam: Positive for: Normal Inspection - Respiratory Exam Respiratory Exam: Clear to Auscultation Bilateral. Upper Chest TTP - Cardiovascular Exam Cardiovascular Exam: REGULAR RHYTHM, +S1, +S2. - GI/Abdominal Exam GI & Abdominal Exam: Guarding, Soft. absent: Tenderness - Extremities Exam Extremities exam: Positive for: normal inspection. Negative for: calf tenderness - Back Exam Back exam: NORMAL INSPECTION - Neurological Exam Neurological exam: Alert, Oriented x3 - Psychiatric Exam Psychiatric exam: Normal Affect, Normal Mood - Skin Skin Exam: Dry, Intact, Warm Discharge Plan - Discharge Medications Prescriptions: RX: glyBURIDE [Micronase] 5 mg PO BID 14 Days tab RX: hydrALAZINE [Apresoline] 25 mg PO BID 14 Days tab Polyethylene Glycol 3350 [Miralax] 17 gm PO DAILY PRN #30 ml PRN Reason: Constipation - Follow Up Plan Condition: FAIR Disposition: HOME/ ROUTINE Patient education suggested?: Yes Instructions: Heart Healthy Diet, Chest Pain That Is Not Caused by the Heart (DC), Diabetes Diet , Chest Pain (DC), Hypertension (DC), Hypertension (GEN) Additional Instructions: - Please follow up with your personal primary doctor within one week. - Please follow up with your personal cable tool operator Dr. Agrueta within one week. - Please continue medications as prescribed, including OTC Miralax for constipation. Patient also provided with script for Hydralazine 25 mg PO BID for BP control and glyburide 5 mg PO BID for your diabetes mellitus. - Your metformin has been discontinued due to your current kidney function. - Check your blood sugars with meals and keep a record for your primary medical doctor. - Should symptoms worsen or reoccur, please visit nearest emergency department. Referrals: Dillon Argueta MD [Medical Doctor] - <Dillon Fink - Last Filed: 10/19/18 13:12> Provider - Provider Date of Admission: 10/16/18 17:28 Attending physician: Dillon Fink MD Consults: 10/16/18 22:41 Case Management Referral Routine Comment: Physician Instructions: Reason For Exam: needs assistance at home Reason for Referral: Discharge Planning 10/17/18 10:39 Cardiology Consult Routine Comment: Consulting Provider: Neel Moreno Consulting Physician: Neel Moreno Reason for Consult: previous patient, chest pain Hospital Course - Lab Results Lab Results: Most Recent Lab Values WBC 7.3 10^3/uL (4.5-11.0) 10/17/18 06:00 RBC 4.07 10^6/uL (3.5-6.1) 10/17/18 06:00 Hgb 11.7 g/dL (12.0-16.0) L 10/17/18 06:00 Hct 35.6 % (36.0-48.0) L 10/17/18 06:00 MCV 87.5 fl (80.0-105.0) 10/17/18 06:00 MCH 28.7 pg (25.0-35.0) 10/17/18 06:00 MCHC 32.9 g/dl (31.0-37.0) 10/17/18 06:00 RDW 13.3 % (11.5-14.5) 10/17/18 06:00 Plt Count 304 10^3/uL (120.0-450.0) 10/17/18 06:00 MPV 11.5 fl (7.0-11.0) H 10/17/18 06:00 Gran % 61.6 % (50.0-68.0) 10/17/18 06:00 Lymph % (Auto) 27.7 % (22.0-35.0) 10/17/18 06:00 [place] % (Auto) 7.4 % (1.0-6.0) H 10/17/18 06:00 Eos % (Auto) 3.0 % (1.5-5.0) 10/17/18 06:00 Baso % (Auto) 0.3 % (0.0-3.0) 10/17/18 06:00 Gran # 4.52 (1.4-6.5) 10/17/18 06:00 Lymph # (Auto) 2.0 (1.2-3.4) 10/17/18 06:00 [place] # (Auto) 0.5 (0.1-0.6) 10/17/18 06:00 Eos # (Auto) 0.2 (0.0-0.7) 10/17/18 06:00 Baso # (Auto) 0.02 K/mm3 (0.0-2.0) 10/17/18 06:00 APTT 27.7 Seconds (25.1-36.5) 10/17/18 06:00 Sodium 139 mmol/L (132-148) 10/17/18 06:00 Potassium 4.7 mmol/L (3.6-5.0) 10/17/18 06:00 Chloride 106 mmol/L (98-107) 10/17/18 06:00 Carbon Dioxide 25 mmol/L (21-33) 10/17/18 06:00 Anion Gap 13 (10-20) 10/17/18 06:00 BUN 38 mg/dL (7-21) H 10/17/18 06:00 Creatinine 1.9 mg/dl (0.7-1.2) H 10/17/18 06:00 Est GFR ( Amer) 32 10/17/18 06:00 Est GFR (Non-Af Amer) 27 10/17/18 06:00 POC Glucose (mg/dL) 166 mg/dL (65-110) H 10/18/18 07:20 Random Glucose 187 mg/dL (70-110) H 10/17/18 06:00 Calcium 9.0 mg/dL (8.4-10.5) 10/17/18 06:00 Phosphorus 4.3 mg/dL (2.5-4.5) 10/17/18 06:00 Magnesium 1.7 mg/dL (1.7-2.2) 10/17/18 06:00 Total Bilirubin 0.2 mg/dL (0.2-1.3) 10/17/18 06:00 AST 24 U/L (14-36) 10/17/18 06:00 ALT 22 U/L (7-56) 10/17/18 06:00 Alkaline Phosphatase 179 U/L (38-126) H 10/17/18 06:00 Lactate Dehydrogenase 366 U/L (333-699) 10/16/18 15:16 Total Creatine Kinase 49 U/L (35-230) 10/16/18 15:16 Troponin I 0.02 ng/mL D 10/17/18 06:00 NT-Pro-B Natriuret Pep 533 pg/mL (0-450) H 10/16/18 15:16 Total Protein 7.4 g/dL (5.8-8.3) 10/17/18 06:00 Albumin 3.8 g/dL (3.0-4.8) 10/17/18 06:00 Globulin 3.6 gm/dL 10/17/18 06:00 Albumin/Globulin Ratio 1.0 (1.1-1.8) L 10/17/18 06:00 Attending/Attestation - Attestation I have personally seen and examined this patient.: Yes I have fully participated in the care of the patient.: Yes I have reviewed all pertinent clinical information, including history, physical exam and plan: Yes Notes (Text): 10/19/18 13:12 Medical record note made by the resident after discussion with my direction and input after the patient was personally seen and examined by me. I have reviewed the chart and agree that the record accurately reflects by personal performance of the history, physical exam, data review, and medical decision-making, in the course for the patient. I have also personally directed the plan of care.
--- NOTE | 2018-10-17 16:18 | CON ---
DATE: 10/17/2018 CARDIOLOGY CONSULTATION HISTORY: The patient is a 63-year-old woman, who presents with transient right-sided chest discomfort, which is now resolved. PAST MEDICAL HISTORY: The patient's past medical history includes hypertension. She suffers from coronary artery disease and has had a history of coronary bypass surgery. Her case management specialist, which she has seen recently, is at [facility] and has stated to her that her heart is stable. She also suffers from hypercholesterolemia. Currently, the patient is chest pain free, but just feels she needs to make a bowel movement. SOCIAL HISTORY: The patient does not smoke. REVIEW OF SYSTEMS: Fourteen-point review of systems is reviewed in detail. No cardiac issues and symptoms are noted. PHYSICAL EXAMINATION: VITAL SIGNS: Blood pressure 142/67, heart rate is in the 80s. NECK: Negative JVD. LUNGS: Without rales. HEART: Revealed S1, S2. EXTREMITIES: Without edema. LABORATORY DATA: Hemoglobin is 11.7. Chemistries, BUN and creatinine of 38 and 1.9. The glucose is 165. Troponins are negative x2. EKG shows normal sinus rhythm with nonspecific ST-T changes, which are unchanged from previous. IMPRESSION: 1. Atypical chest pain. 2. No evidence for acute coronary syndrome. 3. History of coronary artery bypass surgery. 4. Hypertension. 5. Hypercholesterolemia. PLAN: Given these findings, the patient has had a laxative ordered. She should continue her beta-blockers. No further cardiac workup is necessary at this time. The patient needs to follow up with her case management specialist in [place], which the patient wants to and is willing to do so. Neel Moreno MD
[2018-10-17] MEDS ORDERED: Pantoprazole 40 mg EC Tab PO STA (19:06)
--- NOTE | 2018-10-17 19:33 | CARD ---
APPROVED REPORT Date of service: 10/17/2018 EKG Measurement Heart [id number] <Conclusion> Normal sinus rhythm Left ventricular hypertrophy with repolarization abnormality T wave inversions, consider lateral wall ischemia ST changes in inferior lead, consider ischemia Abnormal ECG
[2018-10-18 06:31] VITALS: RESP 18; TEMP 98.2
[2018-10-18] MEDS: Insulin Reg-LOW-Coverage SC SCH (08:28)
[2018-10-18] MEDS: Multivitamin Therapeutic Tab PO SCH (09:20)
[2018-10-18 09:21] VITALS: BP 149/60; PULSE 82
--- NOTE | 2018-10-18 09:29 | CP.PCM.PN ---
<Josef Chris - Last Filed: 10/18/18 15:13> Subjective - Date & Time of Evaluation Date of Evaluation: 10/18/18 Time of Evaluation: 08:00 - Subjective Subjective: Resident Progress Note for Hospitalist Service Patient examined at bedside. Patient was monitored overnight for an acute episode of nausea and vomiting. This morning she reports resolution of these symptoms. She tolerated breakfast without nausea or vomiting. Patient was medically optimized for discharge. Objective - Vital Signs/Intake and Output Vital Signs (last 24 hours): Temp Pulse Resp BP Pulse Ox 98.2 F 82 18 149/60 97 10/18/18 06:00 10/18/18 09:20 10/18/18 06:00 10/18/18 09:20 10/17/18 18:30 Intake and Output: 10/18/18 10/18/18 06:59 18:59 Intake Total 780 Output Total 3 Balance 777 - Medications Medications: Current Medications Aspirin (Ecotrin) 81 mg PO DAILY [facility] Last Admin: 10/18/18 09:20 Dose: 81 mg Atorvastatin Calcium (Lipitor) 40 mg PO HS [facility] Last Admin: 10/17/18 21:58 Dose: 40 mg Carvedilol (Coreg) 3.125 mg PO BID [facility] Last Admin: 10/18/18 09:20 Dose: 3.125 mg Clopidogrel Bisulfate (Plavix) 75 mg PO DAILY [facility] Last Admin: 10/18/18 09:20 Dose: 75 mg Heparin Sodium (Porcine) (Heparin) 5,000 units SC Q12 [facility]; Protocol Last Admin: 10/18/18 09:18 Dose: 5,000 units Insulin Human Regular (Humulin R Low) 0 units SC ACHS [facility]; Protocol Last Admin: 10/18/18 08:28 Dose: 1 units Lisinopril (Zestril) 30 mg PO DAILY [facility] Last Admin: 10/18/18 09:21 Dose: 30 mg Multivitamins (Thera Tab) 1 tab PO DAILY [facility] Last Admin: 10/18/18 09:20 Dose: 1 tab Ondansetron HCl (Zofran Inj) 4 mg IVP Q6H PRN PRN Reason: Nausea/Vomiting - Labs Labs: 10/17/18 06:00 10/17/18 06:00 APTT 27.7 Seconds (25.1-36.5) 10/17/18 06:00 - Additional Findings Additional findings: - Constitutional Appears: Well, Non-toxic, No Acute Distress - Head Exam Head Exam: NORMAL INSPECTION, NORMOCEPHALIC - Eye Exam Eye Exam: EOMI, Normal appearance - ENT Exam ENT Exam: Mucous Membranes Moist, Normal Exam - Neck Exam Neck exam: Positive for: Normal Inspection - Respiratory Exam Respiratory Exam: Clear to Auscultation Bilateral. Upper Chest TTP - Cardiovascular Exam Cardiovascular Exam: REGULAR RHYTHM, +S1, +S2. - GI/Abdominal Exam GI & Abdominal Exam: Guarding, Soft. absent: Tenderness - Extremities Exam Extremities exam: Positive for: normal inspection. Negative for: calf tenderness - Back Exam Back exam: NORMAL INSPECTION - Neurological Exam Neurological exam: Alert, Oriented x3 - Psychiatric Exam Psychiatric exam: Normal Affect, Normal Mood - Skin Skin Exam: Dry, Intact, Warm Assessment and Plan - Assessment and Plan (Free Text) Assessment: 63 y/o F with PMHx of CABG, HTN, DM admitted for chest pain r/o ACS and abdominal pain. EKG shows no changes. Troponins were negative x2. Chest xray negative. Abdomen /Pelvic CT showed a previous cholecystectomy with no hydronephrosis or obstruction. Patient had a bowel movement day before discharge. Patient was monitored and found to be hypertensive without headaches or dizziness. Chest pain was found to be reproducible and tender to palpation. Patient's BP resolved after receiving home medications. Dr. Moreno was consulted for cardiology, and recommended to follow up with personal outpatient terrazzo polisher regarding ongoing monitoring and evaluation. Patient was told to continue home meds and f/u with PCP and [facility]. Recommended medication compliance and close follow up. Patient's questions were answered to patient's satisfaction. Patient states symptoms have improved and she is ready and prepared for discharge. Patient was urged to continue on dual antiplatelet therapy as well as Miralax, lipitor, coreg and Zestril. Per Nurse, patient had bout of vomitus as she was preparing to go home. Patient's blood pressure was elevated 172/75, hydralazine IVP was administered. Zofran 4mg IVP STAT was ordered for nausea. Blood pressure was repeated following Hydralazine 10mg IVP ONCE. JS=506/71 and HR=90. Patient was monitored overnight. On 12 in the morning, patient was noted to be hemodynamically stable with resolution of nausea and vomiting. Patient was medically optimized for discharge. Please refer to EMR for full details. Patient seen, case reviewed and plan approved by Dr. Fink. <Dillon Fink - Last Filed: 10/19/18 13:11> Objective - Vital Signs/Intake and Output Vital Signs (last 24 hours): Temp Pulse Resp BP Pulse Ox 98.2 F 82 18 149/60 97 10/18/18 06:00 10/18/18 09:20 10/18/18 06:00 10/18/18 09:20 10/17/18 18:30 - Labs Labs: 10/17/18 06:00 10/17/18 06:00 APTT 27.7 Seconds (25.1-36.5) 10/17/18 06:00 Attending/Attestation - Attestation I have personally seen and examined this patient.: Yes I have fully participated in the care of the patient.: Yes I have reviewed all pertinent clinical information, including history, physical exam and plan: Yes Notes (Text): 10/19/18 13:09 Patient was seen and examined with medical transcriptionist. 63 yrs old F with PMH of CABG, HTN, DM,stage III CKD base line creatinin 1.9 is admitted with right sided chest pain since last 2 weeks, Patient has chest wall tenderness.EKG was reviewed and was compared with old EKG, there is no new changes. Serial troponins are normal.Patient was evaluated by cardiology, no further inpatient work up is recommended Patient is tolerating diet. Patient blood pressure is better controlled. Management plan was discussed in detail with patient. Education was provided.
== END 2018-10-18 11:24 | disposition home or self-care (01) ==
LOC: ED 14:57 → ERH 17:28 → 2RSO 21:00 → UNDODISOB 10-17 15:10
PROVIDERS: ADMIT Internal Medicine; ATTEND Internal Medicine
DX: R07.89 Other chest pain (principal); E78.00 Pure hypercholesterolemia, unspecified; I12.9 Hypertensive chronic kidney disease with stage 1 through stage 4 chronic kidney disease, or unspecified chronic kidney disease; N18.3 Chronic kidney disease, stage 3 (moderate); E11.22 Type 2 diabetes mellitus with diabetic chronic kidney disease; E78.5 Hyperlipidemia, unspecified; G89.29 Other chronic pain; H54.8 Legal blindness, as defined in USA; I25.10 Atherosclerotic heart disease of native coronary artery without angina pectoris; Z87.09 Personal history of other diseases of the respiratory system; Z79.82 Long term (current) use of aspirin; Z82.49 Family history of ischemic heart disease and other diseases of the circulatory system; Z83.3 Family history of diabetes mellitus; Z90.49 Acquired absence of other specified parts of digestive tract; Z95.1 Presence of aortocoronary bypass graft; R11.2 Nausea with vomiting, unspecified
CPT/HCPCS: 36415; 71045; 74176; 80053; 82550; 82948; 83615; 83735; 83880; 84100; 84484; 85025; 85730; 93005; 96372; 96374; 96375; 96376; 99283; G0378; J0360; J1644; J2405

== ENCOUNTER 2018-11-21 00:14 | Inpatient (IN) | payer OTHER ==
--- NOTE | 2018-11-21 00:38 | ED PDOC ---
Arrival/HPI - General Time Seen by Provider: 11/21/18 00:17 Historian: Patient - History of Present Illness Narrative History of Present Illness (Text): 11/21/18 00:25 Isabel Doss is a 63 year old female, whose past medical history includes hypertension, diabetes, hyperlipidemia, and CABG x4, who presents to the emergency department accompanied by daughter complaining of chest pain. Patient states, via daughter acting as repairer engine production, she has been experiencing right-sided chest pain, worsened with palpation to the area. Patient was recently admitted to the hospital 1 month prior for similar symptoms, to rule out ACS. Patient denies any shortness of breath, cough, leg pain, abdominal pain, back pain, neck pain, headache, dizziness, or any other complaints. 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) - HEENT Hx HEENT Disorder: Yes (USING GLASSES) Hx Blind: Yes (legally blind) - Renal Hx Renal Disorder: (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) Hx Dialysis: Yes (4 TIMES ONLY AFTER CABG) - Endocrine/Metabolic Hx Endocrine Disorders: Yes Hx Diabetes Mellitus Type 1: Yes Hx Diabetes Mellitus Type 2: Yes - Hematological/Oncological Hx Blood Disorders: No Hx AIDS: No Hx Anemia: No Hx Cancer: No Hx Chemotherapy: No Hx Cirrhosis: No Hx Hemophilia: No Hx Hepatitis A: No Hx Hepatitis B: No Hx Hepatitis C: No Hx Metastasis: No Hx Shingles: No Hx Sickle Cell Disease: No Hx Unexplained Bleeding: No - Integumentary Hx Dermatological Disorder: No Hx Basal Cell Carcinoma: No Hx Eczema: No Hx Melanoma: No Hx Psoriasis: No Hx Squamous Cell Carcinoma: No - Musculoskeletal/Rheumatological Hx Falls: Yes - Gastrointestinal Hx Gastrointestinal Disorders: No Hx Colostomy: No Hx Crohn's Disease: No Hx Diverticulitis: No Hx Gall Bladder Disease: No Hx Gastroesophageal Reflux: No Hx Gastrointestinal Ulcer: No Hx Ileostomy: No Hx Liver Failure: No Hx Pancreatitis: No HX Swallowing Problems: No - Genitourinary/Gynecological Hx Genitourinary Disorders: No Hx Hematuria: No Hx Incontinence: No Hx Prostate Problems: No Hx Sexually Transmitted Diseases: No Hx Urinary Tract Infection: No - Psychiatric Hx Psychophysiologic Disorder: Yes Hx Depression: Yes Hx Substance Use: No - Surgical History Hx Cardiac Catheterization: Yes Hx Open Heart Surgery: Yes - Anesthesia Hx Anesthesia: Yes Hx Anesthesia Reactions: No Hx Malignant Hyperthermia: No - Suicidal Assessment Feels Threatened In Home Enviroment: No Family/Social History - Physician Review Nursing Documentation Reviewed: Yes Family/Social History: Unknown Family HX Smoking Status: Never Smoked Hx Alcohol Use: No Hx Substance Use: No Hx Substance Use Treatment: No Allergies/Home Meds Allergies/Adverse Reactions: Allergies No Known Allergies Allergy (Verified 11/21/18 00:22) Home Medications: Home Meds Medication Instructions Recorded Confirmed RX: Aspirin [Ecotrin] 1 tab PO DAILY 08/20/18 10/16/18 RX: Atorvastatin [Lipitor] 1 tab PO HS 08/20/18 10/16/18 RX: Multivitamin [Multivitamins] 1 tab PO DAILY 08/20/18 10/16/18 Insulin Glargine,Hum.rec.anlog 0 unit SQ 11/21/18 [Basaglar Kwikpen U-100] RX: Carvedilol [Coreg] 12.5 mg PO BID 11/21/18 RX: Famotidine [Pepcid] 40 mg PO DAILY 11/21/18 RX: Metoprolol Tartrate [Lopressor] 1 tab PO DAILY 11/21/18 Review of Systems - Physician Review All systems were reviewed & negative as marked: Yes - Review of Systems Constitutional: Normal Eyes: Normal ENT: Normal Respiratory: Normal. absent: SOB, Cough Cardiovascular: Chest Pain Gastrointestinal: Normal. absent: Abdominal Pain, Diarrhea, Nausea, Vomiting Genitourinary Female: Normal. absent: Dysuria, Frequency, Hematuria, Urine Output Changes Musculoskeletal: Normal. absent: Back Pain, Neck Pain Skin: Normal. absent: Rash Neurological: Normal. absent: Headache, Dizziness Endocrine: Normal Hemo/Lymphatic: Normal Psychiatric: Normal Physical Exam Vital Signs Reviewed: Yes Temperature: Afebrile Blood Pressure: Hypertensive Pulse: Regular Respiratory Rate: Normal Appearance: Positive for: Well-Appearing, Non-Toxic, Comfortable Pain Distress: None Mental Status: Positive for: Alert and Oriented X 3 - Systems Exam Head: Present: Atraumatic, Normocephalic Pupils: Present: PERRL Extroacular Muscles: Present: EOMI Conjunctiva: Present: Normal Mouth: Present: Moist Mucous Membranes Neck: Present: Normal Range of Motion Respiratory/Chest: Present: Tender to Palpation (tenderness to right chest on palpation). No: Respiratory Distress, Accessory Muscle Use Cardiovascular: Present: Regular Rate and Rhythm, Normal S1, S2. No: Murmurs Abdomen: No: Tenderness, Distention, Peritoneal Signs Back: Present: Normal Inspection Upper Extremity: Present: Normal Inspection. No: Cyanosis, Edema Lower Extremity: Present: Normal Inspection. No: Edema Neurological: Present: GCS=15, CN II-XII Intact, Speech Normal Skin: Present: Warm, Dry, Normal Color. No: Rashes Psychiatric: Present: Alert, Oriented x 3, Normal Insight, Normal Concentration Medical Decision Making ED Course and Treatment: 11/21/18 00:25 Impression: 63 year old female complaining of right-sided chest pain. Plan: -- EKG -- CXR -- Labs, cardiac enzymes -- Aspirin -- Reassess and disposition Prior Visits: Notes and results from previous visits were reviewed. Progress Notes: Reviewed EKG, NSR at 63 bpm. T wave inversion in 1, aVL. Isolated ST elevation in lead 3. Non-specific ST/T changes. Unchanged from previous EKG on 10/16/2018. 11/21/18 01:49 CXR reviewed, shows no acute processes. 11/21/18 01:[address] Phelps, who is aware and agrees with plan. Accepts pt in to hospitalist service. Pt will go to Telemetry observation for chest pain, hyperkalemia. 11/21/18 01:58 Case discussed with medical accounting clerk recruiting consultant, who is aware and agrees with plan. - EKG Interpretation Interpreted by ED Physician: Yes Type: 12 lead EKG - Scribe Statement The provider has reviewed the documentation as recorded by the Reece Botello Provider Scribe Attestation: All medical record entries made by the Scribe were at my direction and perso brianne dictated by me. I have reviewed the chart and agree that the record accurately reflects my personal performance of the history, physical exam, medical decision making, and the department course for this patient. I have also personally directed, reviewed, and agree with the discharge instructions and disposition. Disposition/Present on Arrival - Present on Arrival Any Indicators Present on Arrival: No History of DVT/PE: No History of Uncontrolled Diabetes: Yes Urinary Catheter: No History of Decub. Ulcer: No History Surgical Site Infection Following: None - Disposition Have Diagnosis and Disposition been Completed?: Yes Diagnosis: Hyperkalemia, Chest pain Disposition: HOSPITALIZED Disposition Time: 02:12 Patient Problems: Current Active Problems Problem Status Onset Chest pain Acute Hyperkalemia Acute Condition: STABLE
[2018-11-21] MEDS ORDERED: Nitroglycerin 2% Ointment Foilpak UD TOP STA (00:45)
[2018-11-21] MEDS ORDERED: Morphine 2 mg/ml ISec IVP STA (00:45)
[2018-11-21 01:00] LABS: HEMOGLOBIN 10.4 g/dL (12.0-16.0); MEAN CORPUSCULAR HEMOGLOBIN 28.9 pg (25.0-35.0); MEAN CORPUSCULAR HGB CONC 32.1 g/dl (31.0-37.0); MEAN PLATELET VOLUME 12.2 fl (7.0-11.0); RBC 3.6 10^6/uL (3.5-6.1); WHITE BLOOD COUNT 6.3 10^3/uL (4.5-11.0)
[2018-11-21 01:32] LABS: INR 1.02; PARTIAL THROMBOPLASTIN TIME 28.6 Seconds (25.1-36.5); PROTHROMBIN TIME 11.6 SECONDS (9.4-12.5)
[2018-11-21 01:54] LABS: TROPONIN I 0.02 ng/mL
[2018-11-21] MEDS ORDERED: Insulin Regular 1 UNITS/0.01 ML ML SC STA (01:55)
[2018-11-21] MEDS ORDERED: Dextrose 50% SYRINGE Inj (50 ml) IVP ONE ×2 (01:55→02:00)
[2018-11-21 01:56] LABS: ALB/GLOB RATIO 1.1 (1.1-1.8); ALBUMIN 3.7 g/dL (3.0-4.8); CALCIUM 8.8 mg/dL (8.4-10.5)
[2018-11-21] MEDS ORDERED: Sod Polystyrene Sulf 15 gm/60 ml Susp PO ONE ×2 (01:57→10:07)
[2018-11-21] MEDS: Albuterol 0.083% Inhal Sol (2.5 mg/3 mL) UD IH STA ×2 (02:30→02:34)
[2018-11-21] MEDS ORDERED: Naproxen 275 mg Tab PO PRN (02:52)
--- NOTE | 2018-11-21 03:35 | CP.PCM.HP ---
<Milton Borrero - Last Filed: 11/21/18 05:58> History of Present Illness - History of Present Illness History of Present Illness: Milton Borrero DO PGY1 - Internal Medicine [employer] - Medicine H&P CC: R sided CP 63F w/ PMH CAD s/p CABG, HTN, DM presented to [facility] [place] on 11/21/18 w/ c/o of R sided chest pain. She reports the pain is located on the upper right side of her chest; characterized as a achy non radiating sensation which has been on going for the past two days worsened w/ movement. She denies any trauma to the area, any recent falls, and any recent strenous activity. Of note, it does appear that patient has had a dialysis catheter placed there in the path. She also complains of associated itching in the area. Of note through chart check it does appear that patient She denies any left sided chest pain, cough, headache/ dizziness, abd pain, n/v/d/c, urinary discomfort. PMD: Leeroy Prizer Hand: Kendall Odonnell PMH: As above PSH: CABG - 2013 Social: Denies - Tobacco, EtOH, Illicit drugs Allergies: NKDA FH: Mother - DM, Father - DM + HTN; Both Present on Admission - Present on Admission Any Indicators Present on Admission: No History of DVT/PE: No Past Patient History - Infectious Disease Hx of Infectious Diseases: None - Tetanus Immunizations Tetanus Immunization: Unknown - Past Social History Smoking Status: Never Smoked - CARDIAC Hx Cardiac Disorders: Yes Hx Hypertension: Yes Hx Peripheral Edema: Yes (RT PEDAL EDEMA) Other/Comment: open heart surgery - PULMONARY Hx Asthma: Yes - NEUROLOGICAL 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) - HEENT Hx HEENT Problems: Yes (USING GLASSES) Hx Blind: Yes (legally blind) - RENAL Hx Chronic Kidney Disease: (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) Hx Dialysis: Yes (4 TIMES ONLY AFTER CABG) - ENDOCRINE/METABOLIC Hx Endocrine Disorders: Yes Hx Diabetes Mellitus Type 1: Yes Hx Diabetes Mellitus Type 2: Yes - HEMATOLOGICAL/ONCOLOGICAL Hx Blood Disorders: No Hx AIDS: No Hx Anemia: No Hx Cancer: No Hx Chemotherapy: No Hx Cirrhosis: No Hx Hemophilia: No Hx Hepatitis A: No Hx Hepatitis B: No Hx Hepatitis C: No Hx Metastesis: No Hx Shingles: No Hx Sickle Cell Disease: No Hx Unexplained Bleeding: No - INTEGUMENTARY Hx Dermatological Problems: No Hx Basil Cell: No Hx Eczema: No Hx Melanoma: No Hx Psoriasis: No Hx Squamous Cell: No - MUSCULOSKELETAL/RHEUMATOLOGICAL Hx Falls: Yes - GASTROINTESTINAL Hx Gastrointestinal Disorders: No Hx Colostomy: No Hx Crohn's Disease: No Hx Diverticulitis: No Hx Gall Bladder Disease: No Hx Gastroesophageal Reflux: No Hx Ileostomy: No Hx Liver Failure: No Hx Pancreatitis: No HX Swallowing Problems: No - GENITOURINARY/GYNECOLOGICAL Hx Genitourinary Disorders: No Hx Hematuria: No Hx Incontinence: No Hx Sexually Transmitted Disorders: No Hx Urinary Tract Infection: No - PSYCHIATRIC Hx Psychophysiologic Disorder: Yes Hx Depression: Yes Hx Substance Use: No - SURGICAL HISTORY Hx Cardiac Catheterization: Yes Hx Open Heart Surgery: Yes - ANESTHESIA Hx Anesthesia: Yes Hx Anesthesia Reactions: No Hx Malignant Hyperthermia: No Meds Allergies/Adverse Reactions: Allergies Allergy/AdvReac Type Severity Reaction Status Date / Time No Known Allergies Allergy Verified 11/21/18 00:22 Physical Exam - Constitutional Appears: Well, Non-toxic, No Acute Distress - Head Exam Head Exam: ATRAUMATIC, NORMOCEPHALIC - Eye Exam Eye Exam: EOMI, Normal appearance, PERRL - ENT Exam ENT Exam: Mucous Membranes Moist - Respiratory Exam Respiratory Exam: Clear to Auscultation Bilateral, NORMAL BREATHING PATTERN. absent: Rhonchi, Wheezes, Respiratory Distress - Cardiovascular Exam Cardiovascular Exam: RRR, +S1, +S2 Additional comments: Chest wall tenderness; Right-upper; Midline - GI/Abdominal Exam GI & Abdominal Exam: Normal Bowel Sounds, Soft. absent: Tenderness - Extremities Exam Extremities exam: Positive for: pedal pulses present. Negative for: pedal edema Additional comments: Pain is exacerbated w/ some movement of the RUE RUE movement is non-restricted ; FULL active/passive ROM of RUE - Back Exam Back exam: absent: CVA tenderness (L), CVA tenderness (R) - Neurological Exam Neurological exam: Alert, Oriented x3 - Psychiatric Exam Psychiatric exam: Normal Affect, Normal Mood - Skin Skin Exam: Dry, Intact, Normal Color, Warm Results - Vital Signs Recent Vital Signs: Last Vital Signs Temp 97.7 F 11/21/18 00:38 Pulse 55 L 11/21/18 03:03 Resp 16 11/21/18 03:03 BP 174/75 H 11/21/18 03:03 Pulse Ox 97 11/21/18 03:03 - Labs Result Diagrams: 11/21/18 00:40 11/21/18 01:10 Labs: Laboratory Results - last 24 hr 11/21/18 11/21/18 11/21/18 00:40 01:10 01:10 WBC 6.3 RBC 3.60 Hgb 10.4 L Hct 32.4 L MCV 90.0 MCH 28.9 MCHC 32.1 RDW 13.0 Plt Count 229 MPV 12.2 H PT 11.6 INR 1.02 APTT 28.6 Sodium 135 Potassium 6.3 H* D Chloride 103 Carbon Dioxide 25 Anion Gap 13 BUN 28 H Creatinine 1.6 H Est GFR ( Amer) 39 Est GFR (Non-Af Amer) 32 Random Glucose 289 H Calcium 8.8 Total Bilirubin 0.4 AST 24 ALT 29 Alkaline Phosphatase 157 H Lactate Dehydrogenase 477 Total Creatine Kinase 58 Troponin I 0.02 Total Protein 7.0 Albumin 3.7 Globulin 3.3 Albumin/Globulin Ratio 1.1 Assessment & Plan - Assessment and Plan (Free Text) Assessment: 63F w/ PMH CAD s/p CABG, HTN, DM, CKD presented to [facility] [place] on 11/21/18 w/ c/o of R sided chest pain. Chest pain is reproducible in nature, and most likely 2/2 musculoskeletal etiology; However, given extensive cardiac history must r/o EHSAN. PLAN: Atypical chest pain: ACS r/o, Cardiac etiology vs MSK pain Of note; patient has had dialysis port placed in vicinity of atypical chest pain First trop negative; EKG on admission showed 1mm ST elevations in III and aVF however compared to prior EKG on 10/17 - similar 1mm elevations seen in III and AVF as well; Prior Twave inversions from 10/17 also present on EKG upon admission. Inversions do appear to be of greater magnitude during this admission. -EKG interpreted by me 11/21 - No Fx on CXR as interpreted by me; Follow up troponin x2 Follow up morning EKG Given ASA 325mg PO x1 in ED; Will start ASA 81 QD C/w home lipitor 40 HS Lipid Panel pending A1c Pending Start Naproxen 275mg BID for MSK coverage; Cardiology consulted, appreciate reccs Hyperkalemia Given Insulin 10 + glucose, Albuerol INH, and kayexalate in ED Given Calcium Gluconate 1gm IVP Follow up morning potassium Hx CAD s/p CABG c/w ASA PLAVIX c/w Coreg 3.125 BId Lipid panel + Lipitor Hx Hypertension Hypertensive upon admission; Started on nitropaste in ED c/w Hydralazine 10mg Q6 PRN for SBP >160 C/w home lisinopril 30 Daily CKD - Baseline Cr 1.6 BUN/Cr - 28/1.6 Gentle hydration NS @ 60cc/hr Hx DM Levemir 25 HS ISS PPX: GI: Pepcid DVT: Heparin 5000 Q12 Patient was seen, examined, discussed w/ attending physician Dr. Lenin Borrero DO PGy1 - Internal Medicine [employer] - Date & Time Date: 11/21/18 Time: 06:28 <Keshia Phelps - Last Filed: 11/21/18 23:17> Results - Vital Signs Recent Vital Signs: Last Vital Signs Temp 97.4 F L 11/21/18 18:00 Pulse 60 11/21/18 22:00 Resp 20 11/21/18 18:00 BP 170/67 H 11/21/18 18:00 Pulse Ox 97 11/21/18 06:00 - Labs Result Diagrams: 11/21/18 07:00 11/21/18 11:25 Labs: Laboratory Results - last 24 hr 11/21/18 11/21/18 11/21/18 00:40 01:10 01:10 WBC 6.3 RBC 3.60 Hgb 10.4 L Hct 32.4 L MCV 90.0 MCH 28.9 MCHC 32.1 RDW 13.0 Plt Count 229 MPV 12.2 H Gran % Lymph % (Auto) Hardy % (Auto) Eos % (Auto) Baso % (Auto) Gran # Lymph # (Auto) Hardy # (Auto) Eos # (Auto) Baso # (Auto) PT 11.6 INR 1.02 APTT 28.6 Sodium 135 Potassium 6.3 H* D Chloride 103 Carbon Dioxide 25 Anion Gap 13 BUN 28 H Creatinine 1.6 H Est GFR ( Amer) 39 Est GFR (Non-Af Amer) 32 POC Glucose (mg/dL) Random Glucose 289 H Hemoglobin A1c Calcium 8.8 Phosphorus Magnesium Iron TIBC % Saturation Ferritin Total Bilirubin 0.4 AST 24 ALT 29 Alkaline Phosphatase 157 H Lactate Dehydrogenase 477 Total Creatine Kinase 58 Troponin I 0.02 Total Protein 7.0 Albumin 3.7 Globulin 3.3 Albumin/Globulin Ratio 1.1 Triglycerides Cholesterol LDL Cholesterol Direct HDL Cholesterol Vitamin B12 Folate Hep Bs Antigen Hep Bs Antibody Hep B Core IgM Ab Hepatitis C Antibody 11/21/18 11/21/18 11/21/18 01:10 02:10 07:00 WBC RBC Hgb Hct MCV MCH MCHC RDW Plt Count MPV Gran % Lymph % (Auto) Hardy % (Auto) Eos % (Auto) Baso % (Auto) Gran # Lymph # (Auto) Hardy # (Auto) Eos # (Auto) Baso # (Auto) PT INR APTT Sodium 138 Potassium 5.3 H Chloride 106 Carbon Dioxide 27 Anion Gap 11 BUN 30 H Creatinine 1.6 H Est GFR ( Amer) 39 Est GFR (Non-Af Amer) 32 POC Glucose (mg/dL) 294 H Random Glucose 105 Hemoglobin A1c Calcium 8.9 Phosphorus 4.5 Magnesium 1.9 Iron TIBC % Saturation Ferritin Total Bilirubin 0.2 AST 24 ALT 26 Alkaline Phosphatase 146 H Lactate Dehydrogenase Total Creatine Kinase Troponin I 0.02 Total Protein 6.4 Albumin 3.3 Globulin 3.1 Albumin/Globulin Ratio 1.1 Triglycerides 183 H Cholesterol 125 L LDL Cholesterol Direct 33 HDL Cholesterol 41 Vitamin B12 Folate Hep Bs Antigen Hep Bs Antibody Hep B Core IgM Ab Hepatitis C Antibody 11/21/18 11/21/18 11/21/18 07:00 07:00 07:20 WBC 6.4 RBC 3.20 L Hgb 9.1 L Hct 28.5 L MCV 89.1 MCH 28.4 MCHC 31.9 RDW 12.9 Plt Count 211 MPV 11.9 H Gran % 38.4 L Lymph % (Auto) 50.6 H Hardy % (Auto) 8.2 H Eos % (Auto) 2.5 Baso % (Auto) 0.3 Gran # 2.45 Lymph # (Auto) 3.2 Hardy # (Auto) 0.5 Eos # (Auto) 0.2 Baso # (Auto) 0.02 PT INR APTT Sodium Potassium Chloride Carbon Dioxide Anion Gap BUN Creatinine Est GFR ( Amer) Est GFR (Non-Af Amer) POC Glucose (mg/dL) 87 Random Glucose Hemoglobin A1c 8.1 H Calcium Phosphorus Magnesium Iron TIBC % Saturation Ferritin Total Bilirubin AST ALT Alkaline Phosphatase Lactate Dehydrogenase Total Creatine Kinase Troponin I Total Protein Albumin Globulin Albumin/Globulin Ratio Triglycerides Cholesterol LDL Cholesterol Direct HDL Cholesterol Vitamin B12 Folate Hep Bs Antigen Hep Bs Antibody Hep B Core IgM Ab Hepatitis C Antibody 11/21/18 11/21/18 11/21/18 11:25 11:40 11:40 WBC RBC Hgb Hct MCV MCH MCHC RDW Plt Count MPV Gran % Lymph % (Auto) Hardy % (Auto) Eos % (Auto) Baso % (Auto) Gran # Lymph # (Auto) Hardy # (Auto) Eos # (Auto) Baso # (Auto) PT INR APTT Sodium 139 Potassium 5.4 H Chloride 104 Carbon Dioxide 30 Anion Gap 10 BUN 28 H Creatinine 1.6 H Est GFR ( Amer) 39 Est GFR (Non-Af Amer) 32 POC Glucose (mg/dL) Random Glucose 165 H Hemoglobin A1c Calcium 9.0 Phosphorus Magnesium Iron 38 L TIBC 251 L % Saturation 15 L Ferritin 49.4 Total Bilirubin 0.2 AST 32 ALT 30 Alkaline Phosphatase 165 H Lactate Dehydrogenase Total Creatine Kinase Troponin I 0.02 Total Protein 7.3 Albumin 3.9 Globulin 3.4 Albumin/Globulin Ratio 1.1 Triglycerides Cholesterol LDL Cholesterol Direct HDL Cholesterol Vitamin B12 542 Folate 10.6 Hep Bs Antigen Negative Hep Bs Antibody Hep B Core IgM Ab Negative Hepatitis C Antibody Negative 11/21/18 11/21/18 11/21/18 11:40 12:05 16:30 WBC RBC Hgb Hct MCV MCH MCHC RDW Plt Count MPV Gran % Lymph % (Auto) Hardy % (Auto) Eos % (Auto) Baso % (Auto) Gran # Lymph # (Auto) Hardy # (Auto) Eos # (Auto) Baso # (Auto) PT INR APTT Sodium Potassium Chloride Carbon Dioxide Anion Gap BUN Creatinine Est GFR ( Amer) Est GFR (Non-Af Amer) POC Glucose (mg/dL) 190 H 160 H Random Glucose Hemoglobin A1c Calcium Phosphorus Magnesium Iron TIBC % Saturation Ferritin Total Bilirubin AST ALT Alkaline Phosphatase Lactate Dehydrogenase Total Creatine Kinase Troponin I Total Protein Albumin Globulin Albumin/Globulin Ratio Triglycerides Cholesterol LDL Cholesterol Direct HDL Cholesterol Vitamin B12 Folate Hep Bs Antigen Hep Bs Antibody Negative Hep B Core IgM Ab Hepatitis C Antibody 11/21/18 21:16 WBC RBC Hgb Hct MCV MCH MCHC RDW Plt Count MPV Gran % Lymph % (Auto) Hardy % (Auto) Eos % (Auto) Baso % (Auto) Gran # Lymph # (Auto) Hardy # (Auto) Eos # (Auto) Baso # (Auto) PT INR APTT Sodium Potassium Chloride Carbon Dioxide Anion Gap BUN Creatinine Est GFR ( Amer) Est GFR (Non-Af Amer) POC Glucose (mg/dL) 279 H Random Glucose Hemoglobin A1c Calcium Phosphorus Magnesium Iron TIBC % Saturation Ferritin Total Bilirubin AST ALT Alkaline Phosphatase Lactate Dehydrogenase Total Creatine Kinase Troponin I Total Protein Albumin Globulin Albumin/Globulin Ratio Triglycerides Cholesterol LDL Cholesterol Direct HDL Cholesterol Vitamin B12 Folate Hep Bs Antigen Hep Bs Antibody Hep B Core IgM Ab Hepatitis C Antibody Attending/Attestation - Attestation I have personally seen and examined this patient.: Yes I have fully participated in the care of the patient.: Yes I have reviewed all pertinent clinical information: Yes Notes (Text): 11/21/18 23:16 Patient was seen when she was in bed # 4 in the ER. Agree with history, physical examination, assessment and plan.
[2018-11-21] MEDS ORDERED: Sodium Chloride 0.9% 1,000 ML IV SCH (04:00)
[2018-11-21 05:38] VITALS: BMI 27.8
[2018-11-21] MEDS: Insulin Lispro (humaLOG) LOW Coverage SC SCH ×4 (07:30→22:18)
[2018-11-21 07:33] LABS: BASO # 0.02 K/mm3 (0.0-2.0); BASO % 0.3 % (0.0-3.0); EOS # 0.2 (0.0-0.7); EOS % 2.5 % (1.5-5.0); GRAN # 2.45 (1.4-6.5); GRAN % 38.4 % (50.0-68.0); HEMOGLOBIN 9.1 g/dL (12.0-16.0); LYMPH # 3.2 (1.2-3.4); LYMPH % 50.6 % (22.0-35.0); MEAN CELL VOLUME 89.1 fl (80.0-105.0); MEAN CORPUSCULAR HEMOGLOBIN 28.4 pg (25.0-35.0); MEAN CORPUSCULAR HGB CONC 31.9 g/dl (31.0-37.0); MEAN PLATELET VOLUME 11.9 fl (7.0-11.0); MONO # 0.5 (0.1-0.6); MONO % 8.2 % (1.0-6.0); RBC 3.2 10^6/uL (3.5-6.1); RED CELL DISTRIBUTION WIDTH 12.9 % (11.5-14.5); WHITE BLOOD COUNT 6.4 10^3/uL (4.5-11.0)
[2018-11-21 07:44] LABS: ALB/GLOB RATIO 1.1 (1.1-1.8); ALBUMIN 3.3 g/dL (3.0-4.8); CALCIUM 8.9 mg/dL (8.4-10.5)
[2018-11-21 07:50] LABS: TROPONIN I 0.02 ng/mL
--- NOTE | 2018-11-21 09:21 | RAD ---
Date of service: 11/21/2018 HISTORY: chest pain COMPARISON: 10/16/2018 FINDINGS: LUNGS: No active pulmonary disease. PLEURA: No significant pleural effusion identified, no pneumothorax apparent. CARDIOVASCULAR: No aortic atherosclerotic calcification present. Mild cardiomegaly no pulmonary vascular congestion. OSSEOUS STRUCTURES: Sternal wires VISUALIZED UPPER ABDOMEN: Normal. OTHER FINDINGS: None. IMPRESSION: No active disease.
[2018-11-21] MEDS: Multivitamin Therapeutic Tab PO SCH (10:52)
--- NOTE | 2018-11-21 11:25 | CARD ---
APPROVED REPORT Date of service: 11/21/2018 EKG Measurement Heart [id number] <Conclusion> Sinus bradycardia Markeed ST_T Changes-Correlate Clinically for Acute Ischaemia. Abnormal ECG
--- NOTE | 2018-11-21 11:29 | CARD ---
APPROVED REPORT Date of service: 11/21/2018 EKG Measurement Heart [id number] <Conclusion> Normal sinus rhythm Marked ST_T Changes-Correlate Clinically to R/O Acute Ischaemia. Abnormal ECG
[2018-11-21 11:49] LABS: ALB/GLOB RATIO 1.1 (1.1-1.8); ALBUMIN 3.9 g/dL (3.0-4.8)
[2018-11-21 11:55] LABS: TROPONIN I 0.02 ng/mL
[2018-11-21 12:03] LABS: IRON 38 ug/dL (45-180)
[2018-11-21 12:13] LABS: % IRON SATURATION 15 % (20-55); TOTAL IRON BINDING CAPACITY 251 ug/dL (265-497)
--- NOTE | 2018-11-21 14:37 | CP.PCM.CON ---
History of Present Illness - History of Present Illness History of Present Illness: Nephrology Consultation Note: Assessment: Stable Chest pain Hyperkalemia Diabetic chronic Kidney Disease (E11.22) Hypertensive Chronic Kidney Disease (I12.9) Chronic Kidney Disease (N18.3) Stage 3 with ? mg proteinuria (R80.9) likely due to DM/HTN Anemia (D64.9), CAD s/p CABG Plan No acute need for renal replacement therapy at this time. Hypertension control with meds as ordered. Maintain hemodynamics stable. Avoid hypotension. will hold ACEI/ARB due to hyperkalemia. stop nsaids. added norvasc 10 mg/d. Monitor Input/Output, daily weights and renal function with basic metabolic panel can d/c IVF continue with statins started iron and MVI Check urine analysis, spot protein/creatinine, albumin/creatinine ratio Check GN work up as JOSE D, Anti dsDNA, c3/c4, HIV/Hep B and Hep C serology Anemia work up with TSAT/Ferritin/Vitamin B12/folate, serum protein electrophoresis with immunofixation, serum free light chain assay ([place]/Lambda) Check for 25-OH vitamin D, iPTH, phosphorus level. Secondary HTN work up with plasma renin/aldosterone, plasma metanephrine Dose meds/antibiotics for reduced GFR. Avoid fleets enema/magnesium based laxatives. Avoid nephrotoxins/NSAIDs/ iodinated contrast (unless needed emergently) Glycemic control Further work up/management as per primary team Thanks for allowing me to participate in care of your patient. Will follow patient with you. Please call if any Qs. Dr Johnathan Mistry Office: [phone] Chief Complaint;Rt chest pain Reason for consult: Acute Kidney Injury hyperkalemia HPI: Pt is a 63 F with hx of diabetes Mellitus ( years), hypertension (years) CKD 3 with baseline cr 1.6-1.9, CAD s/p CABG presented with complaints of Rt chest pain and seen in renal consult for hypercalcemia Denies OTC/herbal meds but was taking NSAIDs No recent iodinated contrast exposure. No obvious episodes of low BP. not aware about kidney disease in past ROS: Cardiovascular: c/o Rt chest pain. Pulmonary: No shortness of breath Gastrointestinal: denies abdominal pain No nausea. No vomiting. Genitourinary: No pain while urinating. Denies blood in urine. All other negative except as mentioned in HPI reports injury to left corley recently Physical Examination: General Appearance: Comfortable, in no acute respiratory distress, co-operative . Vitals reviewed and noted as below Head; Atraumatic, normocephalic ENT: no ulcers no thrush. Tongue is midline. Oropharynx: no rash or ulcers. EYES: Pupils are equal, round and reactive to light accommodation. Eye muscles and extraocular movement intact. Sclera is anicteric. Neck; supple no lymphadenopathy, no thyromegaly or bruit Lungs: Normal respiratory rate/effort. Breath sounds bilateral equal and clear. has CABG scar Heart: Normal rate. s1s2 normal. No rub or gallop. Rt chest wall tenderness + Extremities: no edema. No varicose veins Neurological: Patient is alert, awake and oriented to person, place and time. No focal deficit. Strength bilateral appropriate and equal Skin: Warm and dry. Normal turgor. No rash. Palpitation: Normal elasticity for age Abdomen: Abdomen is soft. Bowel sounds +. There is no abdominal tenderness, no guarding/rigidity no organomegaly Psych: lack insight and normal affect/mood MSK: no joint tenderness or swelling. Digits and nails normal, no deformity : kidney or bladder not palpable Labs/imaging reviewed. Past medical history, past surgical history, family history, social history, allergy reviewed and noted as below Family hx: no hx of CKD. 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) - HEENT Hx HEENT Problems: Yes (USING GLASSES) Hx Blind: Yes (legally blind) - RENAL Hx Chronic Kidney Disease: (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) Hx Dialysis: Yes (4 TIMES ONLY AFTER CABG) - ENDOCRINE/METABOLIC Hx Endocrine Disorders: Yes Hx Diabetes Mellitus Type 1: Yes Hx Diabetes Mellitus Type 2: Yes - HEMATOLOGICAL/ONCOLOGICAL Hx Blood Disorders: No Hx AIDS: No Hx Anemia: No Hx Cancer: No Hx Chemotherapy: No Hx Cirrhosis: No Hx Hemophilia: No Hx Hepatitis A: No Hx Hepatitis B: No Hx Hepatitis C: No Hx Metastesis: No Hx Shingles: No Hx Sickle Cell Disease: No Hx Unexplained Bleeding: No - INTEGUMENTARY Hx Dermatological Problems: No Hx Basil Cell: No Hx Eczema: No Hx Melanoma: No Hx Psoriasis: No Hx Squamous Cell: No - MUSCULOSKELETAL/RHEUMATOLOGICAL Hx Falls: Yes - GASTROINTESTINAL Hx Gastrointestinal Disorders: No Hx Colostomy: No Hx Crohn's Disease: No Hx Diverticulitis: No Hx Gall Bladder Disease: No Hx Gastroesophageal Reflux: No Hx Ileostomy: No Hx Liver Failure: No Hx Pancreatitis: No HX Swallowing Problems: No - GENITOURINARY/GYNECOLOGICAL Hx Genitourinary Disorders: No Hx Hematuria: No Hx Incontinence: No Hx Sexually Transmitted Disorders: No Hx Urinary Tract Infection: No - PSYCHIATRIC Hx Psychophysiologic Disorder: Yes Hx Depression: Yes Hx Substance Use: No - SURGICAL HISTORY Hx Cardiac Catheterization: Yes Hx Open Heart Surgery: Yes - ANESTHESIA Hx Anesthesia: Yes Hx Anesthesia Reactions: No Hx Malignant Hyperthermia: No Meds Allergies/Adverse Reactions: Allergies Allergy/AdvReac Type Severity Reaction Status Date / Time No Known Allergies Allergy Verified 11/21/18 00:22 - Medications Medications: Current Medications Amlodipine Besylate (Norvasc) 10 mg PO DAILY [facility] Last Admin: 11/21/18 12:36 Dose: 10 mg Aspirin (Ecotrin) 81 mg PO DAILY [facility] Last Admin: 11/21/18 10:52 Dose: 81 mg Atorvastatin Calcium (Lipitor) 40 mg PO [facility] Carvedilol (Coreg) 3.125 mg PO BID [facility] Last Admin: 11/21/18 10:55 Dose: Not Given Clopidogrel Bisulfate (Plavix) 75 mg PO DAILY [facility] Last Admin: 11/21/18 10:55 Dose: 75 mg Famotidine (Pepcid) 10 mg PO BID [facility] Last Admin: 11/21/18 10:54 Dose: 10 mg Ferrous Gluconate (Fergon) 324 mg PO TID [facility] Heparin Sodium (Porcine) (Heparin) 5,000 units SC Q12 [facility]; Protocol Last Admin: 11/21/18 10:53 Dose: 5,000 units Hydralazine HCl (Apresoline) 10 mg IVP Q6H PRN PRN Reason: Systolic Blood Pressure Last Admin: 11/21/18 12:35 Dose: 10 mg Insulin Detemir (Levemir) 25 unit SC [facility] Insulin Human Lispro (Humalog Low) 0 units SC ACHS [facility]; Protocol Last Admin: 11/21/18 12:44 Dose: 1 u Multivitamins (Thera Tab) 1 tab PO DAILY [facility] Last Admin: 11/21/18 10:52 Dose: 1 tab Ondansetron HCl (Zofran Inj) 4 mg IVP Q6H PRN PRN Reason: nausea Results - Vital Signs Recent Vital Signs: Last Vital Signs Temp 97.6 F 11/21/18 12:00 Pulse 57 L 11/21/18 12:35 Resp 18 11/21/18 12:00 BP 210/93 H 11/21/18 12:36 Pulse Ox 97 11/21/18 06:00 - Labs Result Diagrams: 11/21/18 07:00 11/21/18 11:25 Labs: Laboratory Results - last 24 hr 11/21/18 11/21/18 11/21/18 00:40 01:10 01:10 WBC 6.3 RBC 3.60 Hgb 10.4 L Hct 32.4 L MCV 90.0 MCH 28.9 MCHC 32.1 RDW 13.0 Plt Count 229 MPV 12.2 H Gran % Lymph % (Auto) Wayne % (Auto) Eos % (Auto) Baso % (Auto) Gran # Lymph # (Auto) Wayne # (Auto) Eos # (Auto) Baso # (Auto) PT 11.6 INR 1.02 APTT 28.6 Sodium 135 Potassium 6.3 H* D Chloride 103 Carbon Dioxide 25 Anion Gap 13 BUN 28 H Creatinine 1.6 H Est GFR ( Amer) 39 Est GFR (Non-Af Amer) 32 POC Glucose (mg/dL) Random Glucose 289 H Hemoglobin A1c Calcium 8.8 Phosphorus Magnesium Iron TIBC % Saturation Total Bilirubin 0.4 AST 24 ALT 29 Alkaline Phosphatase 157 H Lactate Dehydrogenase 477 Total Creatine Kinase 58 Troponin I 0.02 Total Protein 7.0 Albumin 3.7 Globulin 3.3 Albumin/Globulin Ratio 1.1 Triglycerides Cholesterol LDL Cholesterol Direct HDL Cholesterol 11/21/18 11/21/18 11/21/18 01:10 02:10 07:00 WBC RBC Hgb Hct MCV MCH MCHC RDW Plt Count MPV Gran % Lymph % (Auto) Wayne % (Auto) Eos % (Auto) Baso % (Auto) Gran # Lymph # (Auto) Wayne # (Auto) Eos # (Auto) Baso # (Auto) PT INR APTT Sodium 138 Potassium 5.3 H Chloride 106 Carbon Dioxide 27 Anion Gap 11 BUN 30 H Creatinine 1.6 H Est GFR ( Amer) 39 Est GFR (Non-Af Amer) 32 POC Glucose (mg/dL) 294 H Random Glucose 105 Hemoglobin A1c Calcium 8.9 Phosphorus 4.5 Magnesium 1.9 Iron TIBC % Saturation Total Bilirubin 0.2 AST 24 ALT 26 Alkaline Phosphatase 146 H Lactate Dehydrogenase Total Creatine Kinase Troponin I 0.02 Total Protein 6.4 Albumin 3.3 Globulin 3.1 Albumin/Globulin Ratio 1.1 Triglycerides 183 H Cholesterol 125 L LDL Cholesterol Direct 33 HDL Cholesterol 41 11/21/18 11/21/18 11/21/18 07:00 07:00 07:20 WBC 6.4 RBC 3.20 L Hgb 9.1 L Hct 28.5 L MCV 89.1 MCH 28.4 MCHC 31.9 RDW 12.9 Plt Count 211 MPV 11.9 H Gran % 38.4 L Lymph % (Auto) 50.6 H Wayne % (Auto) 8.2 H Eos % (Auto) 2.5 Baso % (Auto) 0.3 Gran # 2.45 Lymph # (Auto) 3.2 Wayne # (Auto) 0.5 Eos # (Auto) 0.2 Baso # (Auto) 0.02 PT INR APTT Sodium Potassium Chloride Carbon Dioxide Anion Gap BUN Creatinine Est GFR ( Amer) Est GFR (Non-Af Amer) POC Glucose (mg/dL) 87 Random Glucose Hemoglobin A1c 8.1 H Calcium Phosphorus Magnesium Iron TIBC % Saturation Total Bilirubin AST ALT Alkaline Phosphatase Lactate Dehydrogenase Total Creatine Kinase Troponin I Total Protein Albumin Globulin Albumin/Globulin Ratio Triglycerides Cholesterol LDL Cholesterol Direct HDL Cholesterol 11/21/18 11/21/18 11/21/18 11:25 11:40 12:05 WBC RBC Hgb Hct MCV MCH MCHC RDW Plt Count MPV Gran % Lymph % (Auto) Wayne % (Auto) Eos % (Auto) Baso % (Auto) Gran # Lymph # (Auto) Wayne # (Auto) Eos # (Auto) Baso # (Auto) PT INR APTT Sodium 139 Potassium 5.4 H Chloride 104 Carbon Dioxide 30 Anion Gap 10 BUN 28 H Creatinine 1.6 H Est GFR ( Amer) 39 Est GFR (Non-Af Amer) 32 POC Glucose (mg/dL) 190 H Random Glucose 165 H Hemoglobin A1c Calcium 9.0 Phosphorus Magnesium Iron 38 L TIBC 251 L % Saturation 15 L Total Bilirubin 0.2 AST 32 ALT 30 Alkaline Phosphatase 165 H Lactate Dehydrogenase Total Creatine Kinase Troponin I 0.02 Total Protein 7.3 Albumin 3.9 Globulin 3.4 Albumin/Globulin Ratio 1.1 Triglycerides Cholesterol LDL Cholesterol Direct HDL Cholesterol
[2018-11-21 16:37] LABS: HEPATITIS B SURFACE AG Negative (NEGATIVE)
[2018-11-21 16:42] LABS: FERRITIN 49.4 ng/mL; HEPATITIS B CORE AB NEGATIVE (NEGATIVE)
--- NOTE | 2018-11-21 16:42 | CARD ---
APPROVED REPORT Date of service: 11/21/2018 EXAM: Two-dimensional and M-mode echocardiogram with Doppler and color Doppler. INDICATION Chest Pain 2D DIMENSIONS Left Atrium (2D)4.2 (1.6-4.0cm)IVSd1.6 (0.7-1.1cm) LVDd4.3 (3.9-5.9cm)PWd1.5 (0.7-1.1cm) LVDs3.0 (2.5-4.0cm)FS (%) 31.4 % LVEF (%)59.6 (>50%) M-Mode DIMENSIONS Aortic Root2.50 (2.2-3.7cm)Aortic Cusp Exc.0.80 (1.5-2.0cm) Aortic Valve AoV Peak Ujiajvfm095.0cm/[place] GR.15mmHg Mitral Valve MV E Hfxajvnb42.2cm/sMV A Eyfntpcr698.0cm/sE/A ratio0.9 TDI E/Lateral E'0.0E/Medial E'0.0 Tricuspid Valve TR Peak [id number]/sRAP [id number] Peak Gr.7mmHg [id number] LEFT VENTRICLE The left ventricle is normal size. There is moderate concentric left ventricular hypertrophy. The left ventricular function is normal.EF-55-60% There is normal LV segmental wall motion. Transmitral Doppler flow pattern is Grade III-reversible restrictive diastolic dysfunction. No left ventricle thrombus noted on this study. There is no ventricular septal defect visualized. There is no left ventricular aneurysm. There is no mass noted in the left ventricle. RIGHT VENTRICLE The right ventricle is normal size. There is normal right ventricular wall thickness. The right ventricular systolic function is normal. There is a pacemaker lead in the right ventricle. ATRIA The left atrium is mildly dilated. The right atrium size is normal. The interatrial septum is intact with no evidence for an atrial septal defect. AORTIC VALVE The aortic valve is not well visualized. The aortic valve is calcified and displays decreased opening. No aortic regurgitation is present. Possibly Moderate There is no aortic valvular vegetation. MITRAL VALVE The mitral valve is thickened but opens well. There is no mitral valve regurgitation noted. There is no mitral valve stenosis. There is no evidence of mitral valve prolapse. possibly MV repair TRICUSPID VALVE The tricuspid valve leaflets are thickened , but open well. There is trace tricuspid regurgitation.RVSP-17 mmof Hg. There is no tricuspid valve stenosis. There is no tricuspid valve prolapse or vegetation. PULMONIC VALVE The pulmonic valve is not well visualized. GREAT VESSELS The aortic root is normal in size. The ascending aorta is normal in size. The pulmonary artery is normal. The IVC is normal in size and collapses >50% with inspiration. PERICARDIAL EFFUSION There is no pleural effusion. There is no pericardial effusion. <Conclusion> The left ventricle is normal size. There is moderate concentric left ventricular hypertrophy. The left ventricular function is normal.EF-55-60% Possibly Moderate There is no mitral valve regurgitation noted. possibly MV repair There is trace tricuspid regurgitation.RVSP-17 mmof Hg. The IVC is normal in size and collapses >50% with inspiration. There is no pericardial effusion.
[2018-11-21 16:54] LABS: HEPATITIS C ANTIBODY NEGATIVE (NEGATIVE)
[2018-11-21 17:11] LABS: FOLATE 10.6 ng/mL
[2018-11-21] MEDS: Insulin Detemir 100 units/ml Vial (Levemir) SC SCH (22:19)
--- NOTE | 2018-11-22 02:22 | CON ---
DATE: 11/21/2018 REQUESTING PHYSICIAN: Dr. Borrero. REASON FOR CONSULTATION: Chest pain. HISTORY OF PRESENT ILLNESS: This is a 63-year-old woman with known coronary artery disease, status post prior bypass surgery five years ago, performed at [facility] who was admitted with right-sided chest discomfort. She states her pain has been present on and off since the time of her surgery. She apparently had a dialysis catheter in the right subclavian region around the time of her bypass surgery, but her renal function reportedly improved and this has been removed. She has had exquisite tenderness over her right sternal region for the past several days. Her symptoms are not related to activities. She attempted to see her transit bus operator yesterday, however, was unable to get an appointment, presents to the emergency room for evaluation. PAST MEDICAL HISTORY: Notable for the problems mentioned above. She does have a history of hypertension and diabetes for a number of years. ALLERGIES: NONE. CURRENT MEDICATIONS: Carvedilol 3.125 mg daily, Ecotrin once daily, iron supplement, subcutaneous heparin, Levemir insulin, Lipitor 40 mg daily, Norvasc 10 mg daily, Pepcid, Plavix 75 mg daily. FAMILY HISTORY: Both parents are and were diabetic. SOCIAL HISTORY: Does not smoke or drink. REVIEW OF SYSTEMS: A 10-point review of systems is otherwise unremarkable. She is fairly inactive. PHYSICAL EXAMINATION: GENERAL: She is an overweight middle-aged woman. VITAL SIGNS: Her blood pressure is 170/80 with a pulse of 56, in sinus; respirations are 16. She is afebrile. HEENT: Normocephalic, atraumatic. NECK: Supple. No JVD noted. CHEST: Few scattered rhonchi heard. HEART: PMI displaced laterally. Heart tones are somewhat distant. She does have exquisite tenderness along her right parasternal region as well as in the right subclavian region. ABDOMEN: Soft, obese, nontender. Normoactive bowel sounds. EXTREMITIES: No edema. SKIN: Warm and dry. PSYCHIATRIC: Normal mood and affect. NEUROLOGIC: Somewhat anxious, but alert and oriented x3. No gross motor or sensory deficits noted. DIAGNOSTIC DATA: Potassium 5.3. BUN/creatinine is 30 and 1.6. Troponin is 0.02. White count 6.4, hemoglobin/hematocrit 9.1 and 28.5 with platelet count 211,000. Electrocardiogram reveals sinus bradycardia with inferior T wave inversions. Repeat cardiogram is unchanged. Chest x-ray reveals mildly increased cardiac silhouette with clear lung jensen. IMPRESSION: 1. Chest pain appears most likely musculoskeletal or neuropathic in nature. Pain is clearly not anginal at this time. 2. Coronary artery disease, status post a prior bypass surgery with no clear evidence of active ischemia. 3. History of hypertension and diabetes. 4. Rest of problems as noted. RECOMMENDATIONS: Analgesic therapy should be administered at this time. Followup troponin will be ordered. Assuming her cardiac enzymes are negative, discharge home with followup with her [place] transit bus operator would be reasonable. Risk factor control is recommended. We will be happy to see her in the future if needed. Dany Cormier MD
--- NOTE | 2018-11-22 07:51 | CP.PCM.PN ---
<Josef Chris L - Last Filed: 11/22/18 15:37> Subjective - Date & Time of Evaluation Date of Evaluation: 11/22/18 Time of Evaluation: 07:51 - Subjective Subjective: Resident Progress Note for Hospitalist Service Patient examined at bedside. No acute events overnight. Patient states that she lives alone and is in need of assistance at home with taking medications. Patient offers no other complaints at this time. Denies fevers, chills, chest pain, shortness of breath, diarrhea, dysuria. Objective - Vital Signs/Intake and Output Vital Signs (last 24 hours): Temp Pulse Resp BP Pulse Ox 98 F 67 20 146/62 96 11/22/18 05:59 11/22/18 06:00 11/22/18 05:59 11/22/18 05:59 11/22/18 05:59 Intake and Output: 11/22/18 11/22/18 06:59 18:59 Intake Total 720 Balance 720 - Medications Medications: Current Medications Acetaminophen (Tylenol 325mg Tab) 650 mg PO Q6H PRN PRN Reason: Pain, moderate (4-7) Last Admin: 11/22/18 00:05 Dose: 650 mg Amlodipine Besylate (Norvasc) 10 mg PO DAILY [facility] Last Admin: 11/21/18 12:36 Dose: 10 mg Aspirin (Ecotrin) 81 mg PO DAILY [facility] Last Admin: 11/21/18 10:52 Dose: 81 mg Atorvastatin Calcium (Lipitor) 40 mg PO HS [facility] Last Admin: 11/21/18 21:40 Dose: 40 mg Carvedilol (Coreg) 3.125 mg PO BID [facility] Last Admin: 11/21/18 17:35 Dose: 3.125 mg Clopidogrel Bisulfate (Plavix) 75 mg PO DAILY [facility] Last Admin: 11/21/18 10:55 Dose: 75 mg Famotidine (Pepcid) 10 mg PO BID [facility] Last Admin: 11/21/18 17:37 Dose: 10 mg Ferrous Gluconate (Fergon) 324 mg PO TID [facility] Last Admin: 11/21/18 18:42 Dose: 324 mg Heparin Sodium (Porcine) (Heparin) 5,000 units SC Q12 [facility]; Protocol Last Admin: 11/21/18 21:40 Dose: 5,000 units Hydralazine HCl (Apresoline) 10 mg IVP Q6H PRN PRN Reason: Systolic Blood Pressure Last Admin: 11/22/18 00:24 Dose: 10 mg Insulin Detemir (Levemir) 25 unit SC [facility] Last Admin: 11/21/18 22:19 Dose: 25 units Insulin Human Lispro (Humalog Low) 0 units SC ACHS [facility]; Protocol Last Admin: 11/21/18 22:18 Dose: Not Given Multivitamins (Thera Tab) 1 tab PO DAILY [facility] Last Admin: 11/21/18 10:52 Dose: 1 tab Ondansetron HCl (Zofran Inj) 4 mg IVP Q6H PRN PRN Reason: nausea Last Admin: 11/22/18 01:40 Dose: 4 mg - Labs Labs: 11/21/18 07:00 11/21/18 11:25 PT 11.6 SECONDS (9.4-12.5) 11/21/18 01:10 INR 1.02 11/21/18 01:10 APTT 28.6 Seconds (25.1-36.5) 11/21/18 01:10 - Additional Findings Additional findings: - Constitutional Appears: Well, Non-toxic, No Acute Distress - Head Exam Head Exam: ATRAUMATIC, NORMOCEPHALIC - Eye Exam Eye Exam: EOMI, Normal appearance, PERRL - Respiratory Exam Respiratory Exam: Clear to Auscultation Bilateral, NORMAL BREATHING PATTERN. absent: Rhonchi, Wheezes, Respiratory Distress - Cardiovascular Exam Cardiovascular Exam: RRR, +S1, +S2 Additional comments: Chest wall tenderness; Right-upper; Midline - GI/Abdominal Exam GI & Abdominal Exam: Normal Bowel Sounds, Soft. absent: Tenderness - Extremities Exam Extremities exam: Positive for: pedal pulses present. Negative for: pedal edema - Neurological Exam Neurological exam: Alert, Oriented x3 - Psychiatric Exam Psychiatric exam: Normal Affect, Normal Mood - Skin Skin Exam: Dry, Intact, Normal Color, Warm Assessment and Plan - Assessment and Plan (Free Text) Assessment: Patient is a 63 year old female with past medical history of CAD s/p CABG, HTN, DM, CKD presenting with chief complaint of right sided chest pain, reproducible in nature. Plan: Atypical chest pain - Of note patient has had dialysis port placed in vicinity of atypical chest pa in - history of CAD s/p CABG - EKG on admission showed [address] elevations in III and aVF however similar compared to prior EKG on 10/17 - troponins neg x3 - ASA 81 mg QD, Plavix 75 mg PO daily - Coreg 3.125 mg PO BID - Lipitor 40 mg PO HS - Lipid panel remarkable for elevated triglycerides - Tylenol 650 mg PO Q6H PRN pain - Cardiology consulted. Recs appreciated. Acute on chronic renal failure - Cr 1.6 -> 2.0 - Nephrology consulted. Recs appreciated. - Is and Os, daily weights Chronic anemia - no signs of blood loss - ferrous gluconate 324 mg PO TID Hyperkalemia- resolved - Given Insulin 10 + glucose, Albuerol INH, and kayexalate in ED - Calcium gluconate 1gm IVP Hypertension - Hydralazine 10mg Q6 PRN - holding home lisinopril due to hyperkalemia - Norvasc 10 mg PO daily DM - Hgba1c 8.1 - Levemir 25 HS - ISS PPX - Pepcid 10 mg PO BID - Heparin 5000 units SC Q12H Case discussed with Dr. Judy Chris PGY-1 <Romulo Kim - Last Filed: 11/22/18 16:03> Objective - Vital Signs/Intake and Output Vital Signs (last 24 hours): Temp Pulse Resp BP Pulse Ox 98.5 F 69 20 196/82 H 96 11/22/18 12:00 11/22/18 12:00 11/22/18 12:00 11/22/18 12:00 11/22/18 05:59 Intake and Output: 11/22/18 11/22/18 06:59 18:59 Intake Total 720 Balance 720 - Medications Medications: Current Medications Acetaminophen (Tylenol 325mg Tab) 650 mg PO Q6H PRN PRN Reason: Pain, moderate (4-7) Last Admin: 11/22/18 00:05 Dose: 650 mg Amlodipine Besylate (Norvasc) 10 mg PO DAILY [facility] Last Admin: 11/22/18 10:01 Dose: 10 mg Aspirin (Ecotrin) 81 mg PO DAILY [facility] Last Admin: 11/22/18 10:01 Dose: 81 mg Atorvastatin Calcium (Lipitor) 40 mg PO HS [facility] Last Admin: 11/21/18 21:40 Dose: 40 mg Carvedilol (Coreg) 3.125 mg PO BID [facility] Last Admin: 11/22/18 10:07 Dose: 3.125 mg Clopidogrel Bisulfate (Plavix) 75 mg PO DAILY [facility] Last Admin: 11/22/18 10:07 Dose: 75 mg Famotidine (Pepcid) 10 mg PO BID [facility] Last Admin: 11/22/18 10:02 Dose: 10 mg Ferrous Gluconate (Fergon) 324 mg PO TID [facility] Last Admin: 11/22/18 10:07 Dose: 324 mg Heparin Sodium (Porcine) (Heparin) 5,000 units SC Q12 [facility]; Protocol Last Admin: 11/22/18 10:03 Dose: 5,000 units Hydralazine HCl (Apresoline) 10 mg IVP Q6H PRN PRN Reason: Systolic Blood Pressure Last Admin: 11/22/18 00:24 Dose: 10 mg Insulin Detemir (Levemir) 25 unit SC HS [facility] Last Admin: 11/21/18 22:19 Dose: 25 units Insulin Human Lispro (Humalog Low) 0 units SC ACHS [facility]; Protocol Last Admin: 11/22/18 13:09 Dose: 1 units Multivitamins (Thera Tab) 1 tab PO DAILY [facility] Last Admin: 11/22/18 10:02 Dose: 1 tab Ondansetron HCl (Zofran Inj) 4 mg IVP Q6H PRN PRN Reason: nausea Last Admin: 11/22/18 01:40 Dose: 4 mg - Labs Labs: 11/22/18 07:00 11/22/18 07:00 PT 11.6 SECONDS (9.4-12.5) 11/21/18 01:10 INR 1.02 11/21/18 01:10 APTT 28.6 Seconds (25.1-36.5) 11/21/18 01:10 Attending/Attestation - Attestation I have personally seen and examined this patient.: Yes I have fully participated in the care of the patient.: Yes I have reviewed all pertinent clinical information, including history, physical exam and plan: Yes Notes (Text): Patient seen and examined with the residents, agree with above No acute distress, lying comfortably, symptoms resolved Has social issues, states no one is at home to help her/give her the medications Language barrier and patient cannot read [place] Will get PT/OT; SW and CM for safe discharge planning
[2018-11-22 08:02] LABS: BASO # 0.01 K/mm3 (0.0-2.0); BASO % 0.2 % (0.0-3.0); EOS # 0.1 (0.0-0.7); EOS % 2.2 % (1.5-5.0); GRAN # 2.75 (1.4-6.5); GRAN % 49.6 % (50.0-68.0); HEMOGLOBIN 9.3 g/dL (12.0-16.0); LYMPH # 2.2 (1.2-3.4); LYMPH % 39.9 % (22.0-35.0); MEAN CELL VOLUME 89.2 fl (80.0-105.0); MEAN CORPUSCULAR HEMOGLOBIN 28.6 pg (25.0-35.0); MEAN CORPUSCULAR HGB CONC 32.1 g/dl (31.0-37.0); MEAN PLATELET VOLUME 11.9 fl (7.0-11.0); MONO # 0.5 (0.1-0.6); MONO % 8.1 % (1.0-6.0); RBC 3.25 10^6/uL (3.5-6.1); RED CELL DISTRIBUTION WIDTH 12.9 % (11.5-14.5); WHITE BLOOD COUNT 5.5 10^3/uL (4.5-11.0)
[2018-11-22 08:33] LABS: ALB/GLOB RATIO 1.1 (1.1-1.8); ALBUMIN 3.3 g/dL (3.0-4.8); CALCIUM 8.4 mg/dL (8.4-10.5)
[2018-11-22] MEDS: Insulin Lispro (humaLOG) LOW Coverage SC SCH ×4 (08:48→21:14)
[2018-11-22] MEDS: Multivitamin Therapeutic Tab PO SCH (10:02)
[2018-11-22 12:33] LABS: COMPLEMENT C4 33.4 mg/dL (14.0-44.0)
--- NOTE | 2018-11-22 13:32 | CP.PCM.PN ---
Subjective - Date & Time of Evaluation Date of Evaluation: 11/22/18 Time of Evaluation: 13:31 - Subjective Subjective: Nephrology Consultation Note: Assessment: Stable Chest pain Hyperkalemia Diabetic chronic Kidney Disease (E11.22) Hypertensive Chronic Kidney Disease (I12.9) Chronic Kidney Disease (N18.3) Stage 3 with ? mg proteinuria (R80.9) likely due to DM/HTN Anemia (D64.9), CAD s/p CABG Plan No acute need for renal replacement therapy at this time. Hypertension control with meds as ordered. will hold ACEI/ARB due to hyperkalemia. stop nsaids Monitor Input/Output continue with statins continue iron and MVI Check urine analysis, spot protein/creatinine, albumin/creatinine ratio pending Check GN work up as JOSE D, Anti dsDNA, c3/c4, HIV/Hep B and Hep C serology Anemia work up with TSAT/Ferritin/Vitamin B12/folate, serum protein electroph oresis with immunofixation, serum free light chain assay ([place]/Lambda) pending Secondary HTN work up with plasma renin/aldosterone, plasma metanephrine pending Physical Examination: General Appearance: Comfortable, in no acute respiratory distress, co-operative . Vitals reviewed and noted as below Head; Atraumatic, normocephalic ENT: no ulcers EYES:Eye muscles and extraocular movement intact. Sclera is anicteric. Neck; supple no jvd Lungs: Normal respiratory rate/effort. Breath sounds bilateral equal and clear. has CABG scar Heart: Normal rate. s1s2 normal. No rub or gallop. Rt chest wall tenderness + Extremities: no edema. No varicose veins Neurological: Patient is alert, awake and oriented to person, place and time. No focal deficit. Strength bilateral appropriate and equal Skin: Warm and dry. Abdomen: Abdomen is soft. Bowel sounds +. There is no abdominal tenderness, no guarding/rigidity no organomegaly Psych: lack insight and normal affect/mood MSK: no joint tenderness Objective - Vital Signs/Intake and Output Vital Signs (last 24 hours): Temp Pulse Resp BP Pulse Ox 98 F 67 20 142/68 96 11/22/18 05:59 11/22/18 06:00 11/22/18 05:59 11/22/18 10:01 11/22/18 05:59 Intake and Output: 11/22/18 11/22/18 06:59 18:59 Intake Total 720 Balance 720 - Medications Medications: Current Medications Acetaminophen (Tylenol 325mg Tab) 650 mg PO Q6H PRN PRN Reason: Pain, moderate (4-7) Last Admin: 11/22/18 00:05 Dose: 650 mg Amlodipine Besylate (Norvasc) 10 mg PO DAILY [facility] Last Admin: 11/22/18 10:01 Dose: 10 mg Aspirin (Ecotrin) 81 mg PO DAILY [facility] Last Admin: 11/22/18 10:01 Dose: 81 mg Atorvastatin Calcium (Lipitor) 40 mg PO HS [facility] Last Admin: 11/21/18 21:40 Dose: 40 mg Carvedilol (Coreg) 3.125 mg PO BID [facility] Last Admin: 11/22/18 10:07 Dose: 3.125 mg Clopidogrel Bisulfate (Plavix) 75 mg PO DAILY [facility] Last Admin: 11/22/18 10:07 Dose: 75 mg Famotidine (Pepcid) 10 mg PO BID [facility] Last Admin: 11/22/18 10:02 Dose: 10 mg Ferrous Gluconate (Fergon) 324 mg PO TID [facility] Last Admin: 11/22/18 10:07 Dose: 324 mg Heparin Sodium (Porcine) (Heparin) 5,000 units SC Q12 [facility]; Protocol Last Admin: 11/22/18 10:03 Dose: 5,000 units Hydralazine HCl (Apresoline) 10 mg IVP Q6H PRN PRN Reason: Systolic Blood Pressure Last Admin: 11/22/18 00:24 Dose: 10 mg Insulin Detemir (Levemir) 25 unit SC [facility] Last Admin: 11/21/18 22:19 Dose: 25 units Insulin Human Lispro (Humalog Low) 0 units SC [facility]; Protocol Last Admin: 11/22/18 13:09 Dose: 1 units Multivitamins (Thera Tab) 1 tab PO DAILY [facility] Last Admin: 11/22/18 10:02 Dose: 1 tab Ondansetron HCl (Zofran Inj) 4 mg IVP Q6H PRN PRN Reason: nausea Last Admin: 11/22/18 01:40 Dose: 4 mg - Labs Labs: 11/22/18 07:00 11/22/18 07:00 PT 11.6 SECONDS (9.4-12.5) 01/04/19 01:10 INR 1.02 11/21/18 01:10 APTT 28.6 Seconds (25.1-36.5) 11/21/18 01:10
[2018-11-22] MEDS: Insulin Detemir 100 units/ml Vial (Levemir) SC SCH (22:04)
[2018-11-23 06:24] LABS: BASO # 0.01 K/mm3 (0.0-2.0); BASO % 0.2 % (0.0-3.0); EOS # 0.2 (0.0-0.7); EOS % 2.8 % (1.5-5.0); GRAN # 2.53 (1.4-6.5); GRAN % 41.9 % (50.0-68.0); HEMOGLOBIN 9.4 g/dL (12.0-16.0); LYMPH # 2.8 (1.2-3.4); MEAN CELL VOLUME 88.9 fl (80.0-105.0); MEAN CORPUSCULAR HEMOGLOBIN 28.2 pg (25.0-35.0); MEAN CORPUSCULAR HGB CONC 31.8 g/dl (31.0-37.0); MONO # 0.5 (0.1-0.6); MONO % 8.1 % (1.0-6.0); RBC 3.33 10^6/uL (3.5-6.1)
[2018-11-23 06:30] LABS: ALB/GLOB RATIO 1.1 (1.1-1.8); ALBUMIN 3.5 g/dL (3.0-4.8); CALCIUM 8.7 mg/dL (8.4-10.5)
--- NOTE | 2018-11-23 07:04 | CP.PCM.PN ---
<[email or web address] L - Last Filed: 11/23/18 13:25> Subjective - Date & Time of Evaluation Date of Evaluation: 11/23/18 Time of Evaluation: 07:04 - Subjective Subjective: Resident Progress Note for Hospitalist Service Patient examined at bedside. No acute events overnight. Patient complaining of mild epigastric discomfort and constipation. Denies chest pain, shortness of breath, nausea, vomiting. Objective - Vital Signs/Intake and Output Vital Signs (last 24 hours): Temp Pulse Resp BP Pulse Ox 97.9 F 71 18 173/78 H 99 11/23/18 06:00 11/23/18 06:00 11/23/18 06:00 11/23/18 06:00 11/23/18 06:00 Intake and Output: 11/23/18 11/23/18 06:59 18:59 Intake Total 480 Balance 480 - Medications Medications: Current Medications Acetaminophen (Tylenol 325mg Tab) 650 mg PO Q6H PRN PRN Reason: Pain, moderate (4-7) Last Admin: 11/22/18 20:24 Dose: 650 mg Amlodipine Besylate (Norvasc) 10 mg PO DAILY [facility] Last Admin: 11/22/18 10:01 Dose: 10 mg Aspirin (Ecotrin) 81 mg PO DAILY [facility] Last Admin: 11/22/18 10:01 Dose: 81 mg Atorvastatin Calcium (Lipitor) 40 mg PO HS [facility] Last Admin: 11/22/18 22:02 Dose: 40 mg Carvedilol (Coreg) 3.125 mg PO BID [facility] Last Admin: 11/22/18 18:32 Dose: 3.125 mg Clopidogrel Bisulfate (Plavix) 75 mg PO DAILY [facility] Last Admin: 11/22/18 10:07 Dose: 75 mg Famotidine (Pepcid) 20 mg PO BID [facility] Ferrous Gluconate (Fergon) 324 mg PO TID [facility] Last Admin: 11/22/18 18:33 Dose: 324 mg Heparin Sodium (Porcine) (Heparin) 5,000 units SC Q12 [facility]; Protocol Last Admin: 11/22/18 22:03 Dose: 5,000 units Hydralazine HCl (Apresoline) 10 mg IVP Q6H PRN PRN Reason: Systolic Blood Pressure Last Admin: 11/22/18 16:20 Dose: 10 mg Insulin Detemir (Levemir) 25 unit SC [facility] Last Admin: 11/22/18 22:04 Dose: 25 units Insulin Human Lispro (Humalog Low) 0 units SC [facility]; Protocol Last Admin: 11/22/18 21:14 Dose: Not Given Multivitamins (Thera Tab) 1 tab PO DAILY [facility] Last Admin: 11/22/18 10:02 Dose: 1 tab Ondansetron HCl (Zofran Inj) 4 mg IVP Q6H PRN PRN Reason: nausea Last Admin: 11/22/18 01:40 Dose: 4 mg - Labs Labs: 11/23/18 05:30 11/23/18 05:30 PT 11.6 SECONDS (9.4-12.5) 11/21/18 01:10 INR 1.02 11/21/18 01:10 APTT 28.6 Seconds (25.1-36.5) 11/21/18 01:10 - Additional Findings Additional findings: - Constitutional Appears: Well, Non-toxic, No Acute Distress - Head Exam Head Exam: ATRAUMATIC, NORMOCEPHALIC - Eye Exam Eye Exam: EOMI, Normal appearance, PERRL - Respiratory Exam Respiratory Exam: Clear to Auscultation Bilateral, NORMAL BREATHING PATTERN. absent: Rhonchi, Wheezes, Respiratory Distress - Cardiovascular Exam Cardiovascular Exam: RRR, +S1, +S2 Additional comments: Chest wall tenderness; Right-upper; Midline - GI/Abdominal Exam GI & Abdominal Exam: Normal Bowel Sounds, Soft. absent: Tenderness - Extremities Exam Extremities exam: Positive for: pedal pulses present. Negative for: pedal edema - Neurological Exam Neurological exam: Alert, Oriented x3 - Psychiatric Exam Psychiatric exam: Normal Affect, Normal Mood - Skin Skin Exam: Dry, Intact, Normal Color, Warm Assessment and Plan - Assessment and Plan (Free Text) Assessment: Patient is a 63 year old female with past medical history of CAD s/p CABG, HTN, DM, CKD presenting with chief complaint of right sided chest pain, reproducible in nature. Plan: Atypical chest pain - Of note patient has had dialysis port placed in vicinity of atypical chest pain - history of CAD s/p CABG - EKG on admission showed [address] elevations in III and aVF however similar compared to prior EKG on 10/17 - troponins neg x3 - ASA 81 mg QD, Plavix 75 mg PO daily - Coreg 3.125 mg PO BID - Lipitor 40 mg PO HS - Lipid panel remarkable for elevated triglycerides - Tylenol 650 mg PO Q6H PRN pain - Cardiology consulted. Recs appreciated. Acute on chronic renal failure - Cr 1.6 -> 2.1 - Nephrology consulted. Recs appreciated. - Is and Os, daily weights Chronic anemia - no signs of blood loss - ferrous gluconate 324 mg PO TID Hyperkalemia- resolved - Given Insulin 10 + glucose, Albuerol INH, and kayexalate in ED - Calcium gluconate 1gm IVP Hypertension - Hydralazine 10mg Q6 PRN - holding home lisinopril due to hyperkalemia - Norvasc 10 mg PO daily DM - Hgba1c 8.1 - Levemir 25 HS - ISS PPX - Protonix 40 mg PO daily - Heparin 5000 units SC Q12H Case discussed with Dr. Danae Chris PGY-1 <Dillon Fink - Last Filed: 11/25/18 17:42> Objective - Vital Signs/Intake and Output Vital Signs (last 24 hours): Temp Pulse Resp BP Pulse Ox 98 F 89 18 153/56 H 97 11/24/18 06:00 11/24/18 10:47 11/24/18 06:00 11/24/18 13:45 11/24/18 06:00 - Labs Labs: 11/24/18 09:15 11/24/18 09:15 PT 11.6 SECONDS (9.4-12.5) 11/21/18 01:10 INR 1.02 11/21/18 01:10 APTT 28.6 Seconds (25.1-36.5) 11/21/18 01:10 Attending/Attestation - Attestation I have personally seen and examined this patient.: Yes I have fully participated in the care of the patient.: Yes I have reviewed all pertinent clinical information, including history, physical exam and plan: Yes Notes (Text): 11/25/18 17:42 Medical record note made by the resident after discussion with my direction and input after the patient was personally seen and examined by me. I have reviewed the chart and agree that the record accurately reflects by personal performance of the history, physical exam, data review, and medical decision-making, in the course for the patient. I have also personally directed the plan of care.
[2018-11-23] MEDS: Insulin Lispro (humaLOG) LOW Coverage SC SCH ×4 (07:30→22:23)
[2018-11-23] MEDS: Multivitamin Therapeutic Tab PO SCH (11:25)
[2018-11-23] MEDS: POLYETHYLENE GLYCOL 3350 17 GM/Dose PACKET PO PRN ×2 (14:10→22:54)
[2018-11-23] MEDS: Insulin Detemir 100 units/ml Vial (Levemir) SC SCH (22:22)
[2018-11-24] MEDS ORDERED: guaiFENesin 100 mg/5 ml Syrup UD PO PRN (00:02)
[2018-11-24 00:07] VITALS: RESP 18
[2018-11-24] MEDS ORDERED: guaiFENesin 100 mg/5 ml Syrup UD PO ONE (00:14)
[2018-11-24] MEDS ORDERED: Pantoprazole 40 mg EC Tab PO SCH (06:00)
[2018-11-24 07:44] LABS: URINE BILIRUBIN NEGATIVE (NEGATIVE); URINE BLOOD NEGATIVE (NEGATIVE); URINE GLUCOSE (UA) NEGATIVE (NEGATIVE); URINE LEUKOCYTE ESTERASE NEGATIVE Leu/uL (NEGATIVE); URINE PROTEIN 30 mg/dL (<30 mg/dL); URINE UROBILINOGEN 0.2 E.U./dL (<1 E.U./dL)
[2018-11-24 07:45] LABS: URINE APPEARANCE CLEAR (CLEAR); URINE COLOR YELLOW (YELLOW)
[2018-11-24 08:00] VITALS: TEMP 98; O2SAT 97
[2018-11-24 08:00] LABS: URINE BACTERIA FEW /hpf; URINE RBC 0 - 2 /hpf (0-2)
[2018-11-24] MEDS: Insulin Lispro (humaLOG) LOW Coverage SC SCH ×2 (08:00→13:45)
[2018-11-24 08:55] LABS: CREATININE,RANDOM URINE 29 mg/dL
[2018-11-24 09:23] LABS: OSMOLALITY,URINE 149 mosm/kg (300-1000)
[2018-11-24 09:25] LABS: BASO # 0.02 K/mm3 (0.0-2.0); BASO % 0.4 % (0.0-3.0); EOS # 0.1 (0.0-0.7); EOS % 2.1 % (1.5-5.0); GRAN # 2.73 (1.4-6.5); GRAN % 48.8 % (50.0-68.0); HEMOGLOBIN 9.4 g/dL (12.0-16.0); LYMPH # 2.3 (1.2-3.4); LYMPH % 40.7 % (22.0-35.0); MEAN CELL VOLUME 88.6 fl (80.0-105.0); MEAN CORPUSCULAR HEMOGLOBIN 28.3 pg (25.0-35.0); MEAN PLATELET VOLUME 11.4 fl (7.0-11.0); MONO # 0.5 (0.1-0.6); RBC 3.32 10^6/uL (3.5-6.1); RED CELL DISTRIBUTION WIDTH 13.1 % (11.5-14.5); WHITE BLOOD COUNT 5.6 10^3/uL (4.5-11.0)
[2018-11-24 09:34] LABS: ALB/GLOB RATIO 1.1 (1.1-1.8); ALBUMIN 3.6 g/dL (3.0-4.8); CALCIUM 8.8 mg/dL (8.4-10.5)
[2018-11-24 10:47] VITALS: PULSE 89
[2018-11-24] MEDS: Multivitamin Therapeutic Tab PO SCH (10:47)
[2018-11-24] MEDS: POLYETHYLENE GLYCOL 3350 17 GM/Dose PACKET PO PRN (10:48)
[2018-11-24] MEDS ORDERED: Ergocalciferol 50,000 Intl Units Cap PO SCH (12:00)
[2018-11-24 12:57] LABS: ALPHA-1-GLOBULIN (PEP) 0.3 g/dL (0.2-0.3)
--- NOTE | 2018-11-24 13:16 | CP.PCM.DIS ---
<Mo Lopez - Last Filed: 11/24/18 16:06> Provider - Provider Date of Admission: 11/23/18 09:27 Attending physician: Dillon Fink MD Consults: 11/21/18 02:52 Cardiology Consult Routine Comment: Consulting Provider: Kobe Segura Consulting Physician: Kobe Segura Reason for Consult: Abnormal EKG, uncontrolled HTN 11/21/18 06:49 Consult [Physician Consult] Routine Comment: Renal insufficiency, Hx hemodialysis,Hx hemodialys Consulting Provider: Johnathan Mistry Consulting Physician: Johnathan Mistry Reason for Consult: Renal insufficiency, Hx hemodialysis,Hx hemodialys Additional Comments: is catheter, hyperkalemia. 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 Referral: Tower Attendant Aprilal Time Spent in preparation of Discharge (in minutes): 35 Hospital Course - Lab Results Lab Results: Most Recent Lab Values WBC 5.6 10^3/uL (4.5-11.0) 11/24/18 09:15 RBC 3.32 10^6/uL (3.5-6.1) L 11/24/18 09:15 Hgb 9.4 g/dL (12.0-16.0) L 11/24/18 09:15 Hct 29.4 % (36.0-48.0) L 11/24/18 09:15 MCV 88.6 fl (80.0-105.0) 11/24/18 09:15 MCH 28.3 pg (25.0-35.0) 11/24/18 09:15 MCHC 32.0 g/dl (31.0-37.0) 11/24/18 09:15 RDW 13.1 % (11.5-14.5) 11/24/18 09:15 Plt Count 201 10^3/uL (120.0-450.0) 11/24/18 09:15 MPV 11.4 fl (7.0-11.0) H 11/24/18 09:15 Gran % 48.8 % (50.0-68.0) L 11/24/18 09:15 Lymph % (Auto) 40.7 % (22.0-35.0) H 11/24/18 09:15 Amador % (Auto) 8.0 % (1.0-6.0) H 11/24/18 09:15 Eos % (Auto) 2.1 % (1.5-5.0) 11/24/18 09:15 Baso % (Auto) 0.4 % (0.0-3.0) 11/24/18 09:15 Gran # 2.73 (1.4-6.5) 11/24/18 09:15 Lymph # (Auto) 2.3 (1.2-3.4) 11/24/18 09:15 Amador # (Auto) 0.5 (0.1-0.6) 11/24/18 09:15 Eos # (Auto) 0.1 (0.0-0.7) 11/24/18 09:15 Baso # (Auto) 0.02 K/mm3 (0.0-2.0) 11/24/18 09:15 PT 11.6 SECONDS (9.4-12.5) 11/21/18 01:10 INR 1.02 11/21/18 01:10 APTT 28.6 Seconds (25.1-36.5) 11/21/18 01:10 Sodium 133 mmol/L (132-148) 11/24/18 09:15 Potassium 5.1 mmol/L (3.6-5.0) H 11/24/18 09:15 Chloride 101 mmol/L (98-107) 11/24/18 09:15 Carbon Dioxide 26 mmol/L (21-33) 11/24/18 09:15 Anion Gap 11 (10-20) 11/24/18 09:15 BUN 32 mg/dL (7-21) H 11/24/18 09:15 Creatinine 2.2 mg/dl (0.7-1.2) H 11/24/18 09:15 Est GFR ( Amer) 27 11/24/18 09:15 Est GFR (Non-Af Amer) 22 11/24/18 09:15 POC Glucose (mg/dL) 187 mg/dL (65-110) H 11/24/18 11:27 Random Glucose 207 mg/dL (70-110) H 11/24/18 09:15 Hemoglobin A1c 8.1 % (4.2-6.5) H 11/21/18 07:00 Calcium 8.8 mg/dL (8.4-10.5) 11/24/18 09:15 Phosphorus 4.5 mg/dL (2.5-4.5) 11/21/18 01:10 Magnesium 1.9 mg/dL (1.7-2.2) 11/21/18 01:10 Iron 38 ug/dL (45-180) L 11/21/18 11:40 TIBC 251 ug/dL (265-497) L 11/21/18 11:40 % Saturation 15 % (20-55) L 11/21/18 11:40 Ferritin 49.4 ng/mL 11/21/18 11:40 Total Bilirubin 0.4 mg/dL (0.2-1.3) 11/24/18 09:15 AST 27 U/L (14-36) 11/24/18 09:15 ALT 25 U/L (7-56) 11/24/18 09:15 Alkaline Phosphatase 160 U/L (38-126) H 11/24/18 09:15 Lactate Dehydrogenase 477 U/L (333-699) 11/21/18 01:10 Total Creatine Kinase 58 U/L (35-230) 11/21/18 01:10 Troponin I 0.02 ng/mL 11/21/18 11:25 Total Protein 6.9 g/dL (5.8-8.3) 11/24/18 09:15 Total Protein (PEP) 5.9 g/dL (6.1-8.1) L 11/22/18 07:00 Albumin 3.6 g/dL (3.0-4.8) 11/24/18 09:15 Albumin (PEP) 3.0 g/dL (3.8-4.8) L 11/22/18 07:00 Globulin 3.2 gm/dL 11/24/18 09:15 Albumin/Globulin Ratio 1.1 (1.1-1.8) 11/24/18 09:15 Mniab-6-Crwfvuadp 0.3 g/dL (0.2-0.3) 11/22/18 07:00 Rjdlx-7-Jajjpojga 0.7 g/dL (0.5-0.9) 11/22/18 07:00 Rgef-6-Sseedurn 0.3 g/dL (0.4-0.6) L 11/22/18 07:00 Wdxn-1-[place]mp[place]ale 0.3 g/dL (0.2-0.5) 11/22/18 07:00 Gamma Globulins 1.2 g/dL (0.8-1.7) 11/22/18 07:00 Abnorm Protein Band 1 TEST NOT PERFORMED 11/22/18 07:00 Abnorm Protein Band 2 TEST NOT PERFORMED 11/22/18 07:00 Abnorm Protein Band 3 TEST NOT PERFORMED 11/22/18 07:00 Triglycerides 183 mg/dL (35-160) H 11/21/18 07:00 Cholesterol 125 mg/dL (130-200) L 11/21/18 07:00 LDL Cholesterol Direct 33 mg/dL (0-129) 11/21/18 07:00 HDL Cholesterol 41 mg/dL (29-60) 11/21/18 07:00 Vitamin B12 542 pg/mL (239-931) 11/21/18 11:40 25-OH Vitamin D Total < 12.8 NG/ML (30.0-100.0) L 11/22/18 07:00 Folate 10.6 ng/mL 11/21/18 11:40 Urine Color Yellow (YELLOW) 11/24/18 06:30 Urine Appearance Clear (CLEAR) 11/24/18 06:30 Urine pH 7.0 (4.7-8.0) 11/24/18 06:30 Ur Specific [place] <= 1.005 (1.005-1.035) 11/24/18 06:30 Urine Protein 30 mg/dL (<30 mg/dL) H 11/24/18 06:30 Urine Glucose (UA) Negative mg/dL (NEGATIVE) 11/24/18 06:30 Urine Ketones Negative mg/dL (NEGATIVE) 11/24/18 06:30 Urine Blood Negative (NEGATIVE) 11/24/18 06:30 Urine Nitrate Negative (NEGATIVE) 11/24/18 06:30 Urine Bilirubin Negative (NEGATIVE) 11/24/18 06:30 Urine Urobilinogen 0.2 E.U./dL (<1 E.U./dL) 11/24/18 06:30 Ur Leukocyte Esterase Negative Nadeem/uL (NEGATIVE) 11/24/18 06:30 Urine RBC 0 - 2 /hpf (0-2) 11/24/18 06:30 Urine WBC 1 - 3 /hpf (0-6) 11/24/18 06:30 Ur Epithelial Cells 3 - 4 /hpf (0-5) 11/24/18 06:30 Urine Bacteria Few /hpf (NONE) 11/24/18 06:30 Urine Osmolality 149 mosm/kg (300-1000) L 11/24/18 06:30 Ur Random Creatinine 29 mg/dL 11/24/18 06:30 Ur Random Sodium 24 meq/L 11/24/18 06:30 Ur Random Potassium 17.9 meq/L 11/24/18 06:30 TAMMY & SPEP Interp See note 11/22/18 07:00 JOSE D Screen Negative (Negative) 11/21/18 11:40 Double Strand DNA Ab 28 IU/mL H 11/21/18 11:40 Complement C3 104.0 mg/dL (88.0-165.0) 11/22/18 07:00 Complement C4 33.4 mg/dL (14.0-44.0) 11/22/18 07:00 Hep Bs Antigen Negative (NEGATIVE) 11/21/18 11:40 Hep Bs Antibody Negative (NEGATIVE) 11/21/18 11:40 Hep B Core IgM Ab Negative (NEGATIVE) 11/21/18 11:40 Hepatitis C Antibody Negative (NEGATIVE) 11/21/18 11:40 HIV 1&2 Ag/Ab, 4th Gen Nonreactive (Nonreactive) 11/21/18 11:40 - Hospital Course Hospital Course: During admission, this is a 63 year old female with PMH CAD s/p CABG, HTN, DM presented to [facility] on [place]21/[place] w/ c/o of R sided chest pain. She reports the pain is located on the upper right side of her chest; characterized as a achy non rad iating sensation which has been on going for the past two days worsened w/ movement. She denies any trauma to the area, any recent falls, and any recent strenous activity. Of note, it does appear that patient has had a dialysis catheter placed there in the path. She also complains of associated itching in the area. During hospital course, EKG on admission showed [address] elevations in III and aVF however similar compared to prior EKG on 10/17. Troponins were negative x3. Patient was given daily ASA 81 mg and Plavix 75 mg PO. Her BP was noted to be high during hospital course and her coreg was increased to 6.25mg BID and started on imdur 30mg daily. She was continued on lipitor 40mg daily as lipid panel showed elevated triglycerides. Her creatinine was noted to be elevated at 2.1 and she was recommended to follow up with her military aircraft designer within one week of discharge to get repeat creatinine as well as follow up on the nephrology blood work up. We spoke with patient's daughter who is next of kin to explain medication changes as well as importance of follow up with doctors. Patient agreed with plan for discharge today. All of patient's questions were answered. All of her medications were brought to bedside and patient stated her agreement with getting refills from her PMD. Discharge Exam - Additional Findings Additional findings: - Constitutional Appears: Well, Non-toxic, No Acute Distress - Head Exam Head Exam: ATRAUMATIC, NORMOCEPHALIC - Eye Exam Eye Exam: EOMI, Normal appearance, PERRL - Respiratory Exam Respiratory Exam: Clear to Auscultation Bilateral, NORMAL BREATHING PATTERN. absent: Rhonchi, Wheezes, Respiratory Distress - Cardiovascular Exam Cardiovascular Exam: RRR, +S1, +S2 Additional comments: Chest wall tenderness; Right-upper; Midline - GI/Abdominal Exam GI & Abdominal Exam: Normal Bowel Sounds, Soft. absent: Tenderness - Extremities Exam Extremities exam: Positive for: pedal pulses present. Negative for: pedal edema - Neurological Exam Neurological exam: Alert, Oriented x3 - Psychiatric Exam Psychiatric exam: Normal Affect, Normal Mood - Skin Skin Exam: Dry, Intact, Normal Color, Warm Discharge Plan - Discharge Medications Prescriptions: RX: amLODIPine [Norvasc] 10 mg PO DAILY #14 tab RX: Aspirin [Ecotrin] 1 tab PO DAILY #14 tabec RX: Atorvastatin [Lipitor] 1 tab PO HS #14 tab RX: Carvedilol [Coreg] 6.25 mg PO BID #28 tab RX: Clopidogrel [Plavix] 75 mg PO DAILY #14 tab RX: Famotidine [Pepcid] 40 mg PO DAILY #14 tab RX: Ferrous Gluconate [Fergon] 324 mg PO TID #42 tab RX: Isosorbide Mononitrate ER [Imdur ER] 30 mg PO DAILY #30 tab - Follow Up Plan Condition: STABLE Disposition: DISCHARGED TO HOME CARE Instructions: Preventing Falls, Chest Pain (DC), Chest Pain (GEN), Hyperkalemia (DC), Hypertension (DC) Additional Instructions: Please follow up with your primary care doctor within 5-7 days of discharge. As per our discussion, your current doctor is Dr. Arlen Mendoza. You will need weekly a weekly vitamin D regiment. Please follow up with your military aircraft designer, Dr. Mistry within 5-7 days of discharge. You will need to check your creatinine (kidney) within one week. A referral has been provided to you. As per our discussion, please follow up with your legislative correspondent in [place] within 5-7 days of discharge. Your medication coreg has been increased to 6.25mg twice a day. You have been started on a new medication called imdur 30mg once daily for your blood pressure. Please otherwise continue your home medications. You have been given a two week supply of all your medications, please obtain refills from your primary care doctor. Please avoid NSAIDS. You may take tylenol for your pain. Please return to the ED for any new or worsening symptoms. Referrals: Johnathan Mistry MD [Staff Provider] - <Dillon Fink - Last Filed: 11/25/18 17:41> Provider - Provider Date of Admission: 11/23/18 09:27 Attending physician: Dillon Fink MD Consults: 11/21/18 02:52 Cardiology Consult Routine Comment: Consulting Provider: Kobe Segura Consulting Physician: Kobe Segura Reason for Consult: Abnormal EKG, uncontrolled HTN 11/21/18 06:49 Consult [Physician Consult] Routine Comment: Renal insufficiency, Hx hemodialysis,Hx hemodialys Consulting Provider: Johnathan Mistry Consulting Physician: Johnathan Mistry Reason for Consult: Renal insufficiency, Hx hemodialysis,Hx hemodialys Additional Comments: is catheter, hyperkalemia. 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 Hospital Course - Lab Results Lab Results: Most Recent Lab Values WBC 5.6 10^3/uL (4.5-11.0) 11/24/18 09:15 RBC 3.32 10^6/uL (3.5-6.1) L 11/24/18 09:15 Hgb 9.4 g/dL (12.0-16.0) L 11/24/18 09:15 Hct 29.4 % (36.0-48.0) L 11/24/18 09:15 MCV 88.6 fl (80.0-105.0) 11/24/18 09:15 MCH 28.3 pg (25.0-35.0) 11/24/18 09:15 MCHC 32.0 g/dl (31.0-37.0) 11/24/18 09:15 RDW 13.1 % (11.5-14.5) 11/24/18 09:15 Plt Count 201 10^3/uL (120.0-450.0) 11/24/18 09:15 MPV 11.4 fl (7.0-11.0) H 11/24/18 09:15 Gran % 48.8 % (50.0-68.0) L 11/24/18 09:15 Lymph % (Auto) 40.7 % (22.0-35.0) H 11/24/18 09:15 Amador % (Auto) 8.0 % (1.0-6.0) H 11/24/18 09:15 Eos % (Auto) 2.1 % (1.5-5.0) 11/24/18 09:15 Baso % (Auto) 0.4 % (0.0-3.0) 11/24/18 09:15 Gran # 2.73 (1.4-6.5) 11/24/18 09:15 Lymph # (Auto) 2.3 (1.2-3.4) 11/24/18 09:15 Amador # (Auto) 0.5 (0.1-0.6) 11/24/18 09:15 Eos # (Auto) 0.1 (0.0-0.7) 11/24/18 09:15 Baso # (Auto) 0.02 K/mm3 (0.0-2.0) 11/24/18 09:15 PT 11.6 SECONDS (9.4-12.5) 11/21/18 01:10 INR 1.02 11/21/18 01:10 APTT 28.6 Seconds (25.1-36.5) 11/21/18 01:10 Sodium 133 mmol/L (132-148) 11/24/18 09:15 Potassium 5.1 mmol/L (3.6-5.0) H 11/24/18 09:15 Chloride 101 mmol/L (98-107) 11/24/18 09:15 Carbon Dioxide 26 mmol/L (21-33) 11/24/18 09:15 Anion Gap 11 (10-20) 11/24/18 09:15 BUN 32 mg/dL (7-21) H 11/24/18 09:15 Creatinine 2.2 mg/dl (0.7-1.2) H 11/24/18 09:15 Est GFR ( Amer) 27 11/24/18 09:15 Est GFR (Non-Af Amer) 22 11/24/18 09:15 POC Glucose (mg/dL) 161 mg/dL (65-110) H 11/24/18 16:43 Random Glucose 207 mg/dL (70-110) H 11/24/18 09:15 Hemoglobin A1c 8.1 % (4.2-6.5) H 11/21/18 07:00 Calcium 8.8 mg/dL (8.4-10.5) 11/24/18 09:15 Phosphorus 4.5 mg/dL (2.5-4.5) 11/21/18 01:10 Magnesium 1.9 mg/dL (1.7-2.2) 11/21/18 01:10 Iron 38 ug/dL (45-180) L 11/21/18 11:40 TIBC 251 ug/dL (265-497) L 11/21/18 11:40 % Saturation 15 % (20-55) L 11/21/18 11:40 Ferritin 49.4 ng/mL 11/21/18 11:40 Total Bilirubin 0.4 mg/dL (0.2-1.3) 11/24/18 09:15 AST 27 U/L (14-36) 11/24/18 09:15 ALT 25 U/L (7-56) 11/24/18 09:15 Alkaline Phosphatase 160 U/L (38-126) H 11/24/18 09:15 Lactate Dehydrogenase 477 U/L (333-699) 11/21/18 01:10 Total Creatine Kinase 58 U/L (35-230) 11/21/18 01:10 Troponin I 0.02 ng/mL 11/21/18 11:25 Total Protein 6.9 g/dL (5.8-8.3) 11/24/18 09:15 Total Protein (PEP) 5.9 g/dL (6.1-8.1) L 11/22/18 07:00 Albumin 3.6 g/dL (3.0-4.8) 11/24/18 09:15 Albumin (PEP) 3.0 g/dL (3.8-4.8) L 11/22/18 07:00 Globulin 3.2 gm/dL 11/24/18 09:15 Albumin/Globulin Ratio 1.1 (1.1-1.8) 11/24/18 09:15 Mnmqd-5-Glzdkyyfo 0.3 g/dL (0.2-0.3) 11/22/18 07:00 Yquot-5-Idqpbaknc 0.7 g/dL (0.5-0.9) 11/22/18 07:00 Xrzb-9-Cfinqomg 0.3 g/dL (0.4-0.6) L 11/22/18 07:00 Otab-5-Wrspseux 0.3 g/dL (0.2-0.5) 11/22/18 07:00 Gamma Globulins 1.2 g/dL (0.8-1.7) 11/22/18 07:00 Abnorm Protein Band 1 TEST NOT PERFORMED 11/22/18 07:00 Abnorm Protein Band 2 TEST NOT PERFORMED 11/22/18 07:00 Abnorm Protein Band 3 TEST NOT PERFORMED 11/22/18 07:00 Triglycerides 183 mg/dL (35-160) H 11/21/18 07:00 Cholesterol 125 mg/dL (130-200) L 11/21/18 07:00 LDL Cholesterol Direct 33 mg/dL (0-129) 11/21/18 07:00 HDL Cholesterol 41 mg/dL (29-60) 11/21/18 07:00 Vitamin B12 542 pg/mL (239-931) 11/21/18 11:40 25-OH Vitamin D Total < 12.8 NG/ML (30.0-100.0) L 11/22/18 07:00 Folate 10.6 ng/mL 11/21/18 11:40 PTH Intact Whole Molec 211 pg/mL (14-64) H 11/22/18 07:00 Urine Color Yellow (YELLOW) 11/24/18 06:30 Urine Appearance Clear (CLEAR) 11/24/18 06:30 Urine pH 7.0 (4.7-8.0) 11/24/18 06:30 Ur Specific [place] <= 1.005 (1.005-1.035) 11/24/18 06:30 Urine Protein 30 mg/dL (<30 mg/dL) H 11/24/18 06:30 Urine Glucose (UA) Negative mg/dL (NEGATIVE) 11/24/18 06:30 Urine Ketones Negative mg/dL (NEGATIVE) 11/24/18 06:30 Urine Blood Negative (NEGATIVE) 11/24/18 06:30 Urine Nitrate Negative (NEGATIVE) 11/24/18 06:30 Urine Bilirubin Negative (NEGATIVE) 11/24/18 06:30 Urine Urobilinogen 0.2 E.U./dL (<1 E.U./dL) 11/24/18 06:30 Ur Leukocyte Esterase Negative Nadeem/uL (NEGATIVE) 11/24/18 06:30 Urine RBC 0 - 2 /hpf (0-2) 11/24/18 06:30 Urine WBC 1 - 3 /hpf (0-6) 11/24/18 06:30 Ur Epithelial Cells 3 - 4 /hpf (0-5) 11/24/18 06:30 Urine Bacteria Few /hpf (NONE) 11/24/18 06:30 Urine Osmolality 149 mosm/kg (300-1000) L 11/24/18 06:30 Ur Random Creatinine 29 mg/dL 11/24/18 06:30 U Random Total Protein 1733 mg/g creat (21-161) H 11/24/18 06:30 Ur Random Sodium 24 meq/L 11/24/18 06:30 Ur Random Potassium 17.9 meq/L 11/24/18 06:30 Urine Creatinine 30 mg/dL (20-275) 11/24/18 06:30 Urine Microalbumin 29.1 mg/dL 11/24/18 06:30 Microalb/Creat Ratio 970 (<30) H 11/24/18 06:30 TAMMY & SPEP Interp See note 11/22/18 07:00 Serum Immunofixation Not detected (Not Detected) 11/22/18 07:00 JOSE D Screen Negative (Negative) 11/21/18 11:40 Double Strand DNA Ab 28 IU/mL H 11/21/18 11:40 Complement C3 104.0 mg/dL (88.0-165.0) 11/22/18 07:00 Complement C4 33.4 mg/dL (14.0-44.0) 11/22/18 07:00 Hep Bs Antigen Negative (NEGATIVE) 11/21/18 11:40 Hep Bs Antibody Negative (NEGATIVE) 11/21/18 11:40 Hep B Core IgM Ab Negative (NEGATIVE) 11/21/18 11:40 Hepatitis C Antibody Negative (NEGATIVE) 11/21/18 11:40 HIV 1&2 Ag/Ab, 4th Gen Nonreactive (Nonreactive) 11/21/18 11:40 Attending/Attestation - Attestation I have personally seen and examined this patient.: Yes I have fully participated in the care of the patient.: Yes I have reviewed all pertinent clinical information, including history, physical exam and plan: Yes Notes (Text): 11/25/18 17:35 Medical record note made by the resident after discussion with my direction and input after the patient was personally seen and examined by me. I have reviewed the chart and agree that the record accurately reflects by personal performance of the history, physical exam, data review, and medical decision-making, in the course for the patient. I have also personally directed the plan of care. 63 year old female with PMH CAD s/p CABG, HTN, DM presented to [facility] on 11/21/18 w/ c/o of R sided chest pain. Patient had chest wall tenderness Serial troponins were normal.Patient was evaluated by cardiology and out patient follow up is recommended. Patient was also found to have acute on chronic renal failure. Creatinin is increased from 1.6 to 2.2.This could be her new base line. Nephrology work up is pending at the time of discharge. She will follow up with (Nephrology) for follow up renal work up.The issue was discussed with her in detail. Patient was evaluated by Physical therapy prior to discharge. Prognosis is guarded. Management plan was discussed in detail with patient. Education was provided. ed
[2018-11-24 13:49] VITALS: BP 153/56
--- NOTE | 2018-11-24 14:47 | CP.PCM.PN ---
Subjective - Date & Time of Evaluation Date of Evaluation: 11/24/18 Time of Evaluation: 14:45 - Subjective Subjective: Nephrology Consultation Note: Assessment: Stable VIVIAN likely hemodynamic Chest pain Hyperkalemia Diabetic chronic Kidney Disease (E11.22) Hypertensive Chronic Kidney Disease (I12.9) Chronic Kidney Disease (N18.3) Stage 3 with ? mg proteinuria (R80.9) likely due to DM/HTN Anemia (D64.9), CAD s/p CABG Plan No acute need for renal replacement therapy at this time. Hypertension control with meds as ordered. Maintain hemodynamics stable. Avoid hypotension. will hold ACEI/ARB due to hyperkalemia. stop nsaids. added norvasc 10 mg/d. increased coreg and added imdur Monitor Input/Output, daily weights and renal function with basic metabolic panel continue with statins started iron and MVI, vit d weekly Check urine analysis, spot protein/creatinine, albumin/creatinine ratio Check GN work up as JOSE D, Anti dsDNA, c3/c4, HIV/Hep B and Hep C serology Anemia work up with TSAT/Ferritin/Vitamin B12/folate, serum protein electrophoresis with immunofixation, serum free light chain assay (Almond/Lambda) Check for 25-OH vitamin D, iPTH, phosphorus level. Secondary HTN work up with plasma renin/aldosterone, plasma metanephrine Dose meds/antibiotics for reduced GFR. Avoid fleets enema/magnesium based laxatives. Avoid nephrotoxins/NSAIDs/ iodinated contrast (unless needed emergently) Glycemic control Further work up/management as per primary team pt stable for d/c from renal perspective with outpt 1 week follow up Thanks for allowing me to participate in care of your patient. Will follow patient with you. Please call if any Qs. Dr Johnathan Mistry Office: [phone] Chief Complaint;Rt chest pain Reason for consult: Acute Kidney Injury hyperkalemia HPI: Pt is a 63 F with hx of diabetes Mellitus ( years), hypertension (years) CKD 3 with baseline cr 1.6-1.9, CAD s/p CABG presented with complaints of Rt chest pain and seen in renal consult for hypercalcemia Denies OTC/herbal meds but was taking NSAIDs No recent iodinated contrast exposure. No obvious episodes of low BP. not aware about kidney disease in past ROS: Cardiovascular: c/o Rt chest pain on moving. Pulmonary: No shortness of breath Gastrointestinal: denies abdominal pain No nausea. No vomiting. Genitourinary: No pain while urinating. Denies blood in urine. All other negative except as mentioned in HPI reports injury to left corley recently Physical Examination: General Appearance: Comfortable, in no acute respiratory distress, co-operative . Vitals reviewed and noted as below Head; Atraumatic, normocephalic ENT: no ulcers no thrush. Tongue is midline. Oropharynx: no rash or ulcers. EYES: Pupils are equal, round and reactive to light accommodation. Eye muscles and extraocular movement intact. Sclera is anicteric. Neck; supple no lymphadenopathy, no thyromegaly or bruit Lungs: Normal respiratory rate/effort. Breath sounds bilateral equal and clear. has CABG scar Heart: Normal rate. s1s2 normal. No rub or gallop. Rt chest wall tenderness + Extremities: no edema. No varicose veins Neurological: Patient is alert, awake and oriented to person, place and time. No focal deficit. Strength bilateral appropriate and equal Skin: Warm and dry. Normal turgor. No rash. Palpitation: Normal elasticity for age Abdomen: Abdomen is soft. Bowel sounds +. There is no abdominal tenderness, no guarding/rigidity no organomegaly Psych: lack insight and normal affect/mood MSK: no joint tenderness or swelling. Digits and nails normal, no deformity : kidney or bladder not palpable Labs/imaging reviewed. Past medical history, past surgical history, family history, social history, allergy reviewed and noted as below Family hx: no hx of CKD. Rest non-contributory renal imaging 2018: WNL, normal adrenals TTKG 6 Vit D ,12.8 TSAT 15% Ferritin 149 Objective - Vital Signs/Intake and Output Vital Signs (last 24 hours): Temp Pulse Resp BP Pulse Ox 98 F 89 18 153/56 H 97 11/24/18 06:00 11/24/18 10:47 11/24/18 06:00 11/24/18 13:45 11/24/18 06:00 - Medications Medications: Current Medications Acetaminophen (Tylenol 325mg Tab) 650 mg PO Q6H PRN PRN Reason: Pain, moderate (4-7) Last Admin: 11/24/18 08:09 Dose: 650 mg Amlodipine Besylate (Norvasc) 10 mg PO DAILY DEBBIE Last Admin: 11/24/18 10:47 Dose: 10 mg Aspirin (Ecotrin) 81 mg PO DAILY [facility] Last Admin: 11/24/18 10:47 Dose: 81 mg Atorvastatin Calcium (Lipitor) 40 mg PO HS [facility] Last Admin: 11/23/18 22:22 Dose: 40 mg Benzonatate (Tessalon Perles) 100 mg PO TID [facility] Last Admin: 11/24/18 13:45 Dose: 100 mg Carvedilol (Coreg) 6.25 mg PO BID [facility] Clopidogrel Bisulfate (Plavix) 75 mg PO DAILY [facility] Last Admin: 11/24/18 10:47 Dose: 75 mg Ergocalciferol (Drisdol 50,000 Intl Units Cap) 1 cap PO Q7D [facility] Last Admin: 11/24/18 13:45 Dose: 1 cap Ferrous Gluconate (Fergon) 324 mg PO TID [facility] Last Admin: 11/24/18 13:45 Dose: 324 mg Heparin Sodium (Porcine) (Heparin) 5,000 units SC Q12 [facility]; Protocol Last Admin: 11/24/18 10:47 Dose: 5,000 units Hydralazine HCl (Apresoline) 10 mg IVP Q6H PRN PRN Reason: Systolic Blood Pressure Last Admin: 11/24/18 06:19 Dose: 10 mg Insulin Detemir (Levemir) 25 unit SC [facility] Last Admin: 11/23/18 22:22 Dose: 25 units Insulin Human Lispro (Humalog Low) 0 units SC [facility]; Protocol Last Admin: 11/24/18 13:45 Dose: Not Given Isosorbide Mononitrate (Imdur Er) 30 mg PO DAILY [facility] Last Admin: 11/24/18 13:44 Dose: 30 mg Multivitamins (Thera Tab) 1 tab PO DAILY [facility] Last Admin: 11/24/18 10:47 Dose: 1 tab Ondansetron HCl (Zofran Inj) 4 mg IVP Q6H PRN PRN Reason: nausea Last Admin: 11/22/18 01:40 Dose: 4 mg Pantoprazole Sodium (Protonix Ec Tab) 40 mg PO 0600 [facility] Last Admin: 11/24/18 06:19 Dose: 40 mg Polyethylene Glycol (Miralax) 17 gm PO DAILY PRN PRN Reason: Constipation Last Admin: 11/24/18 10:48 Dose: 17 gm - Labs Labs: 11/24/18 09:15 11/24/18 09:15 PT 11.6 SECONDS (9.4-12.5) 11/21/18 01:10 INR 1.02 11/21/18 01:10 APTT 28.6 Seconds (25.1-36.5) 11/21/18 01:10
== END 2018-11-24 18:12 | disposition home health service (06) | DRG 316 ==
LOC: ED 00:14 → ERH 02:07 → 2RSO 03:50 → 2RNO 10:12 → OBSVTOIN 11-23 09:27 → 5RSO 11-23 23:09
PROVIDERS: ADMIT Hospitalist; ATTEND Internal Medicine
DX: N17.9 Acute kidney failure, unspecified (principal); E87.5 Hyperkalemia; E11.22 Type 2 diabetes mellitus with diabetic chronic kidney disease; I12.9 Hypertensive chronic kidney disease with stage 1 through stage 4 chronic kidney disease, or unspecified chronic kidney disease; Z95.1 Presence of aortocoronary bypass graft; N18.3 Chronic kidney disease, stage 3 (moderate); D64.9 Anemia, unspecified; E78.1 Pure hyperglyceridemia; E78.5 Hyperlipidemia, unspecified; H54.8 Legal blindness, as defined in USA; R07.89 Other chest pain; I25.10 Atherosclerotic heart disease of native coronary artery without angina pectoris; K59.00 Constipation, unspecified; Z79.82 Long term (current) use of aspirin; Z79.899 Other long term (current) drug therapy; Z82.49 Family history of ischemic heart disease and other diseases of the circulatory system; Z83.3 Family history of diabetes mellitus; Z87.09 Personal history of other diseases of the respiratory system

== ENCOUNTER 2019-03-24 07:56 | Emergency (ER) | payer OTHER ==
[2019-03-24 07:57] VITALS: BMI 32.3
[2019-03-24 08:15] VITALS: TEMP 98.5
--- NOTE | 2019-03-24 08:18 | ED PDOC ---
Arrival/HPI - General Historian: Patient - History of Present Illness Narrative History of Present Illness (Text): 03/24/19 08:34 Patient is a 63 yo female with history of multiple CABGs, cardiac stents, DM, and HTN who presents with abdominal pain and vomiting. Patient states that this morning she woke up with abdominal pain. It is located in the epigastric region. When she attempted to take her medications, she vomited. She felt slightly better after vomiting but then the pain returned. She has been unable to eat or drink anything since last night. She is also anxious becuase her BP is elevated as she could not take her medications this morning. She denies chest pain, p alpitations, diaphoresis, diarrhea. 03/24/19 08:37 Time/Duration: 1-3 hours Symptom Onset: Sudden Symptom Course: Unchanged Quality: Stabbing Activities at Onset: Rest <Kelly Paredes - Last Filed: 03/24/19 12:55> <Marty Gomez - Last Filed: 03/24/19 15:23> - General Chief Complaint: Abdominal Pain Time Seen by Provider: 03/24/19 08:18 Past Medical History - Infectious Disease Hx of Infectious Diseases: None - Tetanus Immunization Tetanus Immunization: Unknown - Reproductive Menopause: Yes - Cardiac Hx Cardiac Arrhythmia: Yes Hx Hypertension: Yes Hx Peripheral Edema: Yes (RT PEDAL EDEMA) - Pulmonary Hx Asthma: Yes - Neurological Hx Alzheimer's Disease: No Hx Dementia: No Hx Migraine: No Hx Parkinson's Disease: No Hx Seizures: No Hx Transient Ischemic Attacks (TIA): No - HEENT Hx HEENT Disorder: Yes (USING GLASSES) Hx Blind: Yes (legally blind) - Renal Hx Renal Disorder: (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) - Endocrine/Metabolic Hx Hyperthyroidism: No Hx Hypothyroidism: No - Hematological/Oncological Hx Anemia: No Hx Sickle Cell Disease: No - Integumentary Hx Dermatological Disorder: No Hx Basal Cell Carcinoma: No Hx Eczema: No Hx Melanoma: No Hx Psoriasis: No Hx Squamous Cell Carcinoma: No - Musculoskeletal/Rheumatological Hx Arthritis: Yes Hx Falls: Yes - Gastrointestinal Hx Crohn's Disease: No Hx Diverticulitis: No Hx Gall Bladder Disease: No Hx Pancreatitis: No - Genitourinary/Gynecological Hx Sexually Transmitted Diseases: No - Psychiatric Hx Depression: Yes Hx Substance Use: No - Surgical History Hx Appendectomy: No Hx Cholecystectomy: No Hx Coronary Stent: No - Anesthesia Hx Anesthesia: Yes Hx Anesthesia Reactions: No Hx Malignant Hyperthermia: No - Suicidal Assessment Feels Threatened In Home Enviroment: No <Kelly Paredes - Last Filed: 03/24/19 12:55> Family/Social History Family/Social History: Unknown Family HX Narrative Family History (Free Text): 03/24/19 08:37 lives with nephew Smoking Status: Never Smoked Hx Alcohol Use: No Hx Substance Use: No Hx Substance Use Treatment: No <Kelly Paredes - Last Filed: 03/24/19 12:55> Allergies/Home Meds <Kelly Paredes - Last Filed: 03/24/19 12:55> <Marty Gomez - Last Filed: 03/24/19 15:23> Allergies/Adverse Reactions: Allergies No Known Allergies Allergy (Verified 11/21/18 00:22) Home Medications: Home Meds Medication Instructions Recorded Confirmed Multivitamin [Multivitamins] 1 tab PO DAILY 08/20/18 10/16/18 Insulin Glargine,Hum.rec.anlog 0 unit SQ 11/21/18 [Melody Olvera U-100] Review of Systems - Review of Systems Constitutional: absent: Fevers, Night Sweats Eyes: absent: Vision Changes Respiratory: absent: SOB, Cough Cardiovascular: absent: Chest Pain, Palpitations, Edema Gastrointestinal: Abdominal Pain, Nausea, Vomiting. absent: Constipation, Diarrhea Genitourinary Female: absent: Dysuria Skin: absent: Skin Lesions Neurological: absent: Headache, Dizziness Endocrine: absent: Diaphoresis Hemo/Lymphatic: absent: Adenopathy Psychiatric: Anxiety <Kelly Paredes - Last Filed: 03/24/19 12:55> Physical Exam Vital Signs Reviewed: Yes Vital Signs Temp Pulse Resp BP Pulse Ox 03/24/19 08:12 98.5 F 72 18 188/68 H 98 Temperature: Afebrile Blood Pressure: Hypertensive Pulse: Regular Respiratory Rate: Normal Appearance: Positive for: Uncomfortable Pain Distress: Moderate Mental Status: Positive for: Alert and Oriented X 3 - Systems Exam Head: Present: Atraumatic Extroacular Muscles: Present: EOMI Mouth: Present: Dry Respiratory/Chest: Present: Clear to Auscultation, Good Air Exchange. No: Respiratory Distress, Accessory Muscle Use Cardiovascular: Present: Regular Rate and Rhythm Abdomen: Present: Tenderness (epigastric), Normal Bowel Sounds, Guarding. No: Distention Neurological: Present: GCS=15, CN II-XII Intact, Speech Normal Skin: Present: Warm, Dry Lymphatic: No: Cervical Adenopathy Psychiatric: Present: Alert, Oriented x 3 <Kelly Paredes - Last Filed: 03/24/19 12:55> Vital Signs Temp Pulse Resp BP Pulse Ox 03/24/19 13:01 67 16 152/66 H 97 03/24/19 12:59 152/66 H 03/24/19 12:25 178/54 H 03/24/19 10:14 64 207/75 H 03/24/19 08:12 98.5 F 72 18 188/68 H 98 <Marty Gomez - Last Filed: 03/24/19 15:23> Medical Decision Making ED Course and Treatment: 03/24/19 11:26 Patient re-evaluated after CT. Still with abdominal pain with palpation. Denies nausea/vomiting. 03/24/19 11:54 Called patient's daughter, Maria Luz. Explained negative CT results. Daughter stated she will take patient to PMD within 1 week. 03/24/19 12:56 SBP improved to 150s Re-evaluation Time: 11:14 Reassessment Condition: Re-examined, Improving,but remains with symptoms - Lab Interpretations I have reviewed the lab results: Yes Interpretation: No sign. 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 Interpreted by ED Physician: Yes Type: 12 lead EKG Comparison: Similar to previous EKG - Medication Orders Current Medication Orders: 03/24/19 08:30 Toradol 30 mg IV Labetalol 10 mg IV NS 1L 03/24/19 09:33 Regular insulin 10 units SC NS 1L 03/24/19 10:32 Mag citrate 300 mL PO- patient refused, stated had BM after CT 03/24/19 11:15 Dulcolax 5 mg PO 03/24/19 11:53 Norvasc 10 mg PO <Kelly Paredes - Last Filed: 03/24/19 12:55> ED Course and Treatment: 03/24/19 15:23 Patient Seen with Resident: In agreement with resident note which contains more details about the patient. Patient seen and evaluated with resident. Came up with plan and treatment together. - Lab Interpretations Lab Results: Troponin I 0.02 ng/mL 03/24/19 08:40 Total Bilirubin 0.2 mg/dL (0.2-1.3) 03/24/19 08:40 AST 20 U/L (14-36) 03/24/19 08:40 ALT 13 U/L (7-56) 03/24/19 08:40 Alkaline Phosphatase 152 U/L (38-126) H 03/24/19 08:40 Total Protein 7.0 g/dL (5.8-8.3) 03/24/19 08:40 Albumin 3.8 g/dL (3.0-4.8) 03/24/19 08:40 Globulin 3.3 gm/dL 03/24/19 08:40 Albumin/Globulin Ratio 1.2 (1.1-1.8) 03/24/19 08:40 Lipase 181 U/L (23-300) 03/24/19 08:40 - RAD Interpretation Radiology Orders: 03/24/19 08:30 ABD & PELVIS W/O PO OR IV CONT [CT] Stat - Medication Orders Current Medication Orders: Discontinued Medications Amlodipine Besylate (Norvasc) 10 mg PO STAT STA Stop: 03/24/19 11:53 Last Admin: 03/24/19 12:59 Dose: 10 mg MAR Blood Pressure Document 03/24/19 12:59 MR (Rec: 03/24/19 12:59 MR [id number]) Blood Pressure Blood Pressure (100/60-150/90) 152/66 Bisacodyl (Dulcolax) 5 mg PO ONCE ONE Stop: 03/24/19 11:15 Last Admin: 03/24/19 11:35 Dose: 5 mg Sodium Chloride (Sodium Chloride 0.9%) 1,000 mls @ 999 mls/hr IV .Q1H1M STA Stop: 03/24/19 09:30 Last Admin: 03/24/19 08:53 Dose: 999 mls/hr eMAR Start Stop Document 03/24/19 08:53 MR (Rec: 03/24/19 08:53 MR [id number]) Intravenous Solution Start Date 03/24/19 Start Time 08:53 End Date 03/24/19 End time 09:53 Total Infusion Time 60 Sodium Chloride (Sodium Chloride 0.9%) 1,000 mls @ 999 mls/hr IV .Q1H1M STA Stop: 03/24/19 10:24 Last Admin: 03/24/19 11:00 Dose: 999 mls/hr eMAR Start Stop Document 03/24/19 11:00 SZA (Rec: 03/24/19 11:37 SZA [id number]) Intravenous Solution Start Date 03/24/19 Start Time 11:00 End Date 03/24/19 End time 12:00 Total Infusion Time 60 Insulin Human Regular (Humulin R) 10 units SC ONCE ONE Stop: 03/24/19 09:26 Last Admin: 03/24/19 10:15 Dose: 10 unit MAR Blood Glucose Document 03/24/19 10:15 MR (Rec: 03/24/19 10:15 MR [id number]) Blood Glucose Finger Stick Blood Glucose (70-120) 371 Subcutaneous Administrations Document 03/24/19 10:15 MR (Rec: 03/24/19 10:15 MR [id number]) Injection Site MAR Injection Site Right Abdomen Charges for Administration # of Subcutaneous Administrations 1 Ketorolac Tromethamine (Toradol) 30 mg IVP STAT STA Stop: 03/24/19 08:31 Last Admin: 03/24/19 08:53 Dose: 30 mg MAR Pain Assessment Document 03/24/19 08:53 MR (Rec: 03/24/19 08:54 MR [id number]) Pain Reassessment Is this a pain reassessment? Yes Sleep Is patient sleeping during reassessment? No Presence of Pain Presence of Pain Yes Pain Scale Used Protocol: PSCALES Pain Scale Used Numeric Location Pain Location Body Site Abdomen Description Description Intermittent Intensity of Pain at present 8 Pain Behavior Facial Grimacing Alleviating Factors/Management Medication Techniques IVP Administration Document 03/24/19 08:53 MR (Rec: 03/24/19 08:54 MR [id number]) Charges for Administration # of IVP Administrations 1 Labetalol HCl (Trandate) 10 mg IV STAT STA Stop: 03/24/19 08:48 Last Admin: 03/24/19 10:14 Dose: 10 mg eMAR Start Stop Document 03/24/19 10:14 MR (Rec: 03/24/19 10:14 [id number]) Intravenous Solution Start Date 03/24/19 Start Time 10:09 End Date 03/24/19 End time 10:14 Total Infusion Time 5 MAR Pulse and Blood Pressure Document 03/24/19 10:14 MR (Rec: 03/24/19 10:14 [id number]) Pulse Pulse Rate (60-90) 64 Blood Pressure Blood Pressure (100/60-150/90) 207/75 Magnesium Citrate (Citrate Of Mag) 300 ml PO ONCE ONE Stop: 03/24/19 10:33 Last Admin: 03/24/19 11:41 Dose: Not Given Non-Admin Reason: Patient Refused <Marty Gomez - Last Filed: 03/24/19 15:23> Disposition/Present on Arrival - Present on Arrival Any Indicators Present on Arrival: No History of DVT/PE: No History of Uncontrolled Diabetes: No Urinary Catheter: No History of Decub. Ulcer: No History Surgical Site Infection Following: None - Disposition Have Diagnosis and Disposition been Completed?: Yes Disposition Time: 12:56 Patient Plan: Discharge <Kelly Paredes - Last Filed: 03/24/19 12:55> <Marty Gomez - Last Filed: 03/24/19 15:23> - Disposition Diagnosis: Constipation, Hypertensive urgency Disposition: HOME/ ROUTINE Condition: IMPROVED Discharge Instructions (ExitCare): Constipation in Adults, High Blood Pressure in Adults, Malignant Hypertension Additional Instructions: Follow-up with your PMD, Dr. Nick within 1 week. Continue taking blood pressure medications. Ensure you are drinking plenty of fluids to stay hydrated. Referrals: Shazia Nick MD [Family Provider] - Follow up with primary Forms: [employer] (Telugu)
[2019-03-24] MEDS ORDERED: Sodium Chloride 0.9% 1,000 ML IV STA ×2 (08:30→09:24)
[2019-03-24] MEDS ORDERED: Labetalol 5 mg/ml Inj 20ML IV STA ×3 (08:47→12:25)
[2019-03-24 08:54] LABS: BASO # 0.03 K/mm3 (0.0-2.0); BASO % 0.6 % (0.0-3.0); EOS # 0.1 (0.0-0.7); EOS % 1.5 % (1.5-5.0); HEMOGLOBIN 9.1 g/dL (12.0-16.0); LYMPH # 1.9 (1.2-3.4); LYMPH % 41.1 % (22.0-35.0); MEAN CELL VOLUME 87.9 fl (80.0-105.0); MEAN CORPUSCULAR HEMOGLOBIN 28.2 pg (25.0-35.0); MEAN PLATELET VOLUME 10.8 fl (7.0-11.0); MONO # 0.3 (0.1-0.6); MONO % 6.8 % (1.0-6.0); RBC 3.23 10^6/uL (3.5-6.1); RED CELL DISTRIBUTION WIDTH 13.1 % (11.5-14.5); WHITE BLOOD COUNT 4.7 10^3/uL (4.5-11.0)
[2019-03-24 09:15] LABS: TROPONIN I 0.02 ng/mL
[2019-03-24 09:18] LABS: ALB/GLOB RATIO 1.2 (1.1-1.8); ALBUMIN 3.8 g/dL (3.0-4.8)
[2019-03-24] MEDS ORDERED: Insulin Regular 1 UNITS/0.01 ML ML SC ONE (09:25)
--- NOTE | 2019-03-24 10:45 | CT ---
Date of service: 03/24/2019 PROCEDURE: CT Abdomen and Pelvis without intravenous contrast HISTORY: abd pain COMPARISON: 10/16/2018 TECHNIQUE: Without contrast.. Contrast dose: Radiation dose: Total exam DLP = 721.28 mGy-cm. This CT exam was performed using one or more of the following dose reduction techniques: Automated exposure control, adjustment of the mA and/or kV according to patient size, and/or use of iterative reconstruction technique. FINDINGS: LOWER THORAX: Unremarkable. LIVER: Unremarkable. No gross lesion or ductal dilatation. GALLBLADDER AND BILE DUCTS: Gallbladder removed PANCREAS: Unremarkable. No gross lesion or ductal dilatation. SPLEEN: Unremarkable. ADRENALS: Unremarkable. No mass. KIDNEYS AND URETERS: Unremarkable. No hydronephrosis. No solid mass. VASCULATURE: Unremarkable. No aortic aneurysm. Aortic calcification BOWEL: Unremarkable APPENDIX: Unremarkable. Normal appendix. PERITONEUM: Unremarkable. No free fluid. No free air. LYMPH NODES: Unremarkable. No enlarged lymph nodes. BLADDER: Unremarkable. REPRODUCTIVE: Unremarkable. BONES: There is trabecular and cortical thickening in the right hip. This could be secondary to Paget's disease or previous injury. OTHER FINDINGS: None. IMPRESSION: No acute intra-abdominal or intrapelvic findings
[2019-03-24] MEDS ORDERED: Bisacodyl 5mg EC Tab PO ONE (11:14)
[2019-03-24] MEDS: Magnesium Citrate Oral SOL (300 ml) PO ONE ×2 (11:35→11:41)
[2019-03-24 13:00] VITALS: BP 152/66
[2019-03-24 13:01] VITALS: PULSE 67; RESP 16; O2SAT 97
--- NOTE | 2019-03-24 17:48 | CARD ---
APPROVED REPORT Date of service: 03/24/2019 EKG Measurement Heart [id number] ID [id number] <Conclusion> Normal sinus rhythm ST elevation, consider inferior injury or acute infarct ACUTE SC Consider right ventricular involvement in acute inferior infarct Abnormal ECG
== END 2019-03-24 13:19 | disposition home or self-care (01) ==
LOC: ED 07:56
DX: K59.00 Constipation, unspecified (principal); I16.0 Hypertensive urgency; E11.9 Type 2 diabetes mellitus without complications; I10 Essential (primary) hypertension; Z95.1 Presence of aortocoronary bypass graft
CPT/HCPCS: 74176; 80053; 82554; 82948; 83690; 83735; 84100; 84484; 85025; 93005; 96361; 96374; 96375; 99283; J1885; J7030